=== PATIENT | female | born 1970 | race Caucasian/White ===

== ENCOUNTER 2020-09-14 10:59 | Emergency (ER) | payer MEDICARE, SELFPAY ==
--- NOTE | ~2020-09-14 | XR_ITS ---
EXAMINATION: XR knee RT min 4V EXAM DATE: 09/14/2020 11:40 INDICATION: Twisted RT knee last night. c/o pain. no h/o fx/sx . TECHNIQUE: Right knee frontal, crosstable lateral, orthogonal oblique projections for interpretation . [place] projection. There are no prior studies for comparison. FINDINGS: No evidence osteochondral defect or joint body in the right knee joint. There are no acut e fractures or dislocations identified. There is no subcutaneous gas. Scattered arterial sclerosis. No joint effusion. Mild patellar lateral subluxation. There are no radiopaque foreign bodies. The joint spaces are uniform. IMPRESSION: 1. XR knee RT min 4V exam without acute osseous findings. 2. Mild patellar lateral subluxation. Reviewed, dictated and finalized at location B.
[2020-09-14 11:05] VITALS: BP 109/48; PULSE 80; RESP 18; TEMP 36.2; O2SAT 100
--- NOTE | 2020-09-14 12:12 | ED.LOWEXIN ---
HPI - Extremity Injury (Lower) General Chief Complaint: Extremity Injury, Lower Stated Complaint: R Knee Injury Time Seen by Provider: 09/14/20 11:14 Source: patient Mode of arrival: ambulatory Limitations: no limitations History of Present Illness HPI Narrative: Patient is a 49-year-old female who presents with right knee pain. She reports twisting knee and driveway last p.m. She denies tenderness with palpation. Reports tenderness with ambulation. She denies all other injuries at this time. She denies taking [id number] medications for pain prior to arrival. Related Data Home Medications Medication Instructions Recorded Confirmed amlodipine 5 mg tablet 5 mg PO DAILY 03/28/19 07/22/20 apixaban 5 mg tablet 5 mg PO BID 03/28/19 07/22/20 aspirin 81 mg tablet,delayed 81 mg PO DAILY 03/28/19 07/22/20 release cinacalcet 60 mg tablet 60 mg PO DAILY 03/28/19 07/22/20 sevelamer carbonate 800 mg tablet 800 mg PO TID 03/28/19 07/22/20 folic acid 1 mg tablet 5 mg PO DAILY tablet 04/01/19 07/22/20 Allergies Allergy/AdvReac Type Severity Reaction Status Date / Time No Known Allergies Allergy Unknown Verified 09/14/20 11:52 Review of Systems Review of Systems: Narrative: CONSTITUTIONAL: Denies fever, chills, or sweats. EYES: Denies visual changes, redness, or discharge. ENT: Denies rhinorrhea, congestion, sore throat, or otalgia. CARDIOVASCULAR: Denies chest pain, palpitations, or edema. RESPIRATORY: Denies cough or dyspnea. GASTROINTESTINAL: Denies abdominal pain, nausea, vomiting, or diarrhea. GENITOURINARY: Denies dysuria or hematuria. SKIN: Denies rash or itching. MUSCULOSKELETAL: Reports right knee pain NEUROLOGIC: Denies headache, numbness, dizziness, or weakness. PSYCHIATRIC: Denies anxiety or depression. [facility] Family History Family History Father Family history of kidney disease Family history of diabetes mellitus in first degree relative Diabetes mellitus Hypertension Patient's father is , Onset Age: 52 Mother Patient's mother is in good health Social History Social History Alcohol intake: never Comments At the time of signature, I have reviewed and agree with nursing past medical, surgical, social, and family history unless otherwise noted. Please see nursing chart for further information. There is no relevant family history pertinent to the presenting complaint. Exam Narrative: Exam Narrative: GENERAL: Well-appearing, well-nourished, and in no acute distress. HEAD: Normocephalic, atraumatic. EYES: EOMI. No redness or drainage. Conjunctiva are normal. ENT: Mucous membranes pink and moist. CHEST: No respiratory distress. HEART: Regular rate and rhythm. EXTREMITIES: Normal range of motion. No erythema or edema noted to the right knee, distal sensation intact, good capillary refill SKIN: Warm, dry, no rash. NEURO: No focal deficits. Alert and oriented x3. Gait steady. PSYCH: Normal affect. No signs of depression or anxiety. Course Vital Signs Vital signs: Vital Signs Temperature 36.2 C L 09/14/20 11:05 Pulse Rate 80 09/14/20 11:05 Respiratory Rate 18 09/14/20 11:05 Blood Pressure 109/48 L 09/14/20 11:05 Pulse Oximetry 100 09/14/20 11:05 Temperature 36.2 C L 09/14/20 11:05 Pulse Rate 80 09/14/20 11:05 Respiratory Rate 18 09/14/20 11:05 Blood Pressure 109/48 L 09/14/20 11:05 Pulse Oximetry 100 09/14/20 11:05 MDM - Extremity Injury (Lower) MDM Narrative Medical decision making narrative: Patient's x-ray shows mild patellar lateral subluxation. Patient placed in a knee immobilizer. Discussed with patient the need to follow-up with orthopedics. Orthopedic referral given. Patient is stable for discharge to home with outpatient follow-up as discussed. Differential Diagnosis Differential diagnosis: Likely acute internal dera
== END 2020-09-14 13:52 | disposition home or self-care (01) ==
PROVIDERS: Emergency Provider Nurse Practitioner; PCP Internal Medicine
DX: S83.011A Lateral subluxation of right patella, initial encounter (principal); Z79.82 Long term (current) use of aspirin; Z79.01 Long term (current) use of anticoagulants; X50.9XXA Other and unspecified overexertion or strenuous movements or postures, initial encounter
CPT/HCPCS: 73564; 99283

== ENCOUNTER 2021-04-10 07:09 | Inpatient (IN) | payer MEDICARE, SELFPAY ==
[2021-04-10] VITALS (11 sets, daily range): BP systolic 115–134; BP diastolic 51–84; PULSE 94–102; RESP 14–20; TEMP 37.1–39.5; O2SAT 85–100; BMI 49.5
--- NOTE | ~2021-04-10 | US_ITS ---
EXAMINATION: US abdomen limited DATE: 04/11/2021 14:21 INDICATION: Abnormal liver function tests. TECHNIQUE: Multiple grayscale and Doppler ultrasound images of the abdomen were obtained. COMPARISON: CT abdomen and pelvis 08/25/2015 FINDINGS: The visualized portions of the head, body, and tail of the pancreas are normal. The liver i s normal without focal lesion. No liver surface nodularity. The is normal flow in main portal vein. T he gallbladder is normal in size and contains stones. No gallbladder wall thickening or sonographic M urphy sign. The common duct is normal and measures 2 mm. IMPRESSION: 1. Cholelithiasis. No evidence of acute cholecystitis. Reviewed, dictated and finalized at location A. ITE CH[employer] TERRA[employer] FINISHER
--- NOTE | ~2021-04-10 | XR_ITS ---
EXAMINATION: XR chest 2V DATE: 04/10/2021 08:00 INDICATION: Fever. TECHNIQUE: Frontal and lateral views of the chest were obtained. COMPARISON: Chest single view 04/20/2013, CT abdomen and pelvis 08/25/2015 FINDINGS: There are mild airspace opacities in the lower lung zones. No pleural effusion or pneumotho rax. The heart size is normal. There is a vascular stent overlying left shoulder. IMPRESSION: 1. Mild airspace opacities in the lower lung zones, consistent with atelectasis versus pneumonia. Reviewed, dictated and finalized at location A. OMIC CONSULTANT
--- NOTE | ~2021-04-10 | MR_ITS ---
EXAMINATION: MR brain/brain stem wo con DATE: 04/11/2021 14:58 INDICATION: Headache and fever. TECHNIQUE: Magnetic resonance imaging (MRI) of the brain and brainstem was performed without intraven ous contrast. Sequences included sagittal and axial T1-weighted FSE, axial diffusion-weighted FS EPI, axial T2*-weighted GRE, axial T2-weighted FLAIR Propeller, and axial T2-weighted Propeller. Apparent diffusion coefficient (ADC) maps were created. COMPARISON: None. FINDINGS: There is no intracranial hemorrhage, acute infarction, or abnormal intracranial mass lesion . The ventricles are normal in size. There is mild mucosal thickening in the paranasal sinuses. The o rbits are normal. There is a left mastoid effusion. IMPRESSION: 1. Normal brain. 2. Left mastoid effusion. Reviewed, dictated and finalized at location A. TAL FORENSICS EXAMINER
[2021-04-10] MEDS: ACETAMINOPHEN 500 MG TABLET 1000 MG PO (07:45)
[2021-04-10 07:59] LABS: Basophils Percent Auto 0.5 % (0.2-1.2); Eosinophils Absolute Auto 0.1 K/mm3 (0-0.3); Hematocrit 35.2 % (37.0-47.0); Hemoglobin 10.9 g/dL (12.0-15.0); Immature Granulocyte Absolute 0.08 K/mm3 (0.00-0.031); Immature Granulocyte Percent A 0.9 % (0-0.5); Lymphocytes Absolute Auto 2.02 K/mm3 (0.9-3.2); Lymphocytes Percent Auto 23.3 % (18.3-44.2); Mean Corpuscular Volume 87.3 fl (80-100); Mean Platelet Volume 11.2 fl (7.4-10.4); Monocytes Absolute Auto 0.9 K/mm3 (0.1-0.6); Monocytes Percent Auto 10.1 % (2.6-8.5); Neutrophils Absolute Auto 5.6 K/mm3 (1.3-6.7); Neutrophils Percent Auto 64.2 % (45.5-73.1); Platelet Count Result 298 k/mm3 (150-375); Red Blood Count 4.03 M/mm3 (4.2-5.4); Red Cell Distribution Width 16.2 % (11.5-14.5); White Blood Count 8.7 K/mm3 (4.5-10.0)
[2021-04-10 08:06] LABS: Alanine Aminotransferase 49 U/L (4-35); Albumin Level 3.7 g/dL (3.5-5.1); Alkaline Phosphatase 190 U/L (38-126); Anion Gap 13 mmol/L (8-16); Aspartate Amino Transferase 63 U/L (14-36); Bilirubin,Total 0.7 mg/dL (0.2-1.3); Blood Urea Nitrogen 46 mg/dL (7-17); Calcium 8.8 mg/dL (8.4-10.2); Carbon Dioxide 30 mmol/L (22-30); Chloride 85 mmol/L (98-107); Estimated CRCL calculation 8 ml/min; Estimated Glomerular Filt Rate 3; Glucose 117 mg/dL (65-110); Potassium 5.3 mmol/L (3.4-5.0); Sodium 128 mmol/L (137-145)
--- NOTE | 2021-04-10 08:25 | ED.FEVER ---
HPI - Fever General Chief Complaint: Fever Stated Complaint: WEAKNESS/FLU POSITIVE Time Seen by Provider: 04/10/21 07:35 Source: patient Mode of arrival: EMS Limitations: clinical condition History of Present Illness HPI Narrative: 50-year-old female She is a renal dialysis patient of Dr. mackey's Patient notes a fever for several days She has a slight cough, she has nausea, no diarrhea, and is anuric 2 days ago she says she tested positive for influenza when they checked her at dialysis She has been taking Tylenol but without much help Related Data Home Medications Medication Instructions Recorded Confirmed apixaban 5 mg tablet 5 mg PO BID 03/28/19 03/22/21 aspirin 81 mg tablet,delayed 81 mg PO DAILY 03/28/19 03/22/21 release cinacalcet 60 mg tablet 60 mg PO DAILY 03/28/19 03/22/21 sevelamer carbonate 800 mg tablet 800 mg PO TID 03/28/19 03/22/21 folic acid 1 mg tablet 5 mg PO DAILY tablet 04/01/19 03/22/21 midodrine 5 mg tablet 5 mg PO TID 03/22/21 03/22/21 Allergies Allergy/AdvReac Type Severity Reaction Status Date / Time No Known Allergies Allergy Unknown Verified 10/26/20 10:22 Review of Systems Review of Systems: All systems reviewed & are unremarkable except as noted in HPI and below Constitutional: Constitutional: Reports no additional constitutional complaints, Reports chills, Reports fatigue, Reports fever(s) and Denies headache(s) Eyes: Eyes: Reports no additional eye complaints and Denies change in vision ENT: Denies headache(s) and Denies sore throat Cardiovascular: Cardiovascular: Denies chest pain and Denies dyspnea Respiratory: Respiratory: Reports cough and Denies dyspnea Gastrointestinal: Gastrointestinal: Denies diarrhea, Reports nausea and Reports vomiting Genitourinary: Genitourinary: Denies urinary frequency, Denies nocturia and Denies dysuria Musculoskeletal: Musculoskeletal: Reports myalgias, Denies deformity, Denies arthralgias, Denies joint swelling and Denies numbness Integumentary/Breasts: Skin/Breast: Denies rash and Denies wounds Neurologic: Denies headache(s), Denies focal weakness and Denies numbness Psychiatric: Psychiatric: Reports no additional psychiatric complaints Endocrine: Endocrine: Reports no additional endocrine complaints Hematologic/Lymphatic: Hematologic/Lymphatic: Reports no additional hematologic/lymphatic complaints Allergic/Immunologic: Allergic/Immunologic: Reports no additional allergic/immunologic complaints 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 Morbid obesity PAD (peripheral artery disease) Polyneuropathy Renovascular hypertension Secondary hyperparathyroidism Type 1 diabetes mellitus with chronic kidney disease on chronic dialysis Vaccine counseling Surgical History Surgical History H/O kidney removal Family History Family History Father Family history of kidney disease Family history of diabetes mellitus in first degree relative Diabetes mellitus Hypertension Patient's father is , Onset Age: 52 Mother Patient's mother is in good health Social History Social History Alcohol intake: never Exam Const: General: cooperative, no acute distress and aler
[2021-04-10] MEDS: SODIUM CHLORIDE 0.9% IV 500 ML 999 ML IV CONT (08:45)
[2021-04-10 09:30] LABS: SARS-CoV-2 RNA PCR Negative
--- NOTE | 2021-04-10 09:32 | PM.IMHP ---
H&P: HPI History of Present Illness Date/Time: 04/10/21 09:32 Chief Complaint: Fever and weakness Narrative: This 50-year-old with IDDM and end-stage renal disease has been intermittently febrile for 1 week. Three days ago at dialysis she tested positive for influenza A. She was not treated. She continued with intermittent fevers and today felt extremely weak such that she could barely ambulate. Because of the weakness she presented the emergency department where chest x-ray showed bilateral lower lung infiltrates. She denied cough congestion sore throat chest pain dyspnea diarrhea or nausea or vomiting. Other than dialysis center she had no known exposures. She has had 3 COVID vaccinations and tested COVID negative today. Her most recent A1c was 5.6 and blood sugars with her insulin pump run in the 90s to low 100s. No recent hypoglycemia. Takes apixaban due to issues with her graft occluding. 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 1 diabetes mellitus Morbid obesity PAD (peripheral artery disease) Polyneuropathy Renovascular hypertension Secondary hyperparathyroidism Type 1 diabetes mellitus with chronic kidney disease on chronic dialysis Vaccine counseling Surgical History Surgical History H/O kidney removal Family History Family History Father Family history of kidney disease Family history of diabetes mellitus in first degree relative Diabetes mellitus Hypertension Patient's father is , Onset Age: 52 Mother Patient's mother is in good health Social History Social History (Updated 04/10/21 @ 17:39 by Nazario Ojeda MD) Social History: Disabled. Lives with . Smoking status: Never smoker Alcohol intake: never Substance use: never Living arrangements: with family Occupation/Education: retired Gender identity (if verbalized by the patient): Female Spiritual care concerns: No Meds Home Medications and Allergies Home Medications Medication Instructions Recorded Confirmed Type apixaban 5 mg tablet 5 mg PO BID 03/28/19 04/10/21 History aspirin 81 mg tablet,delayed 81 mg PO DAILY 03/28/19 04/10/21 History release cinacalcet 60 mg tablet 60 mg PO HS 03/28/19 04/10/21 History sevelamer carbonate 800 mg tablet 800 mg PO TID 03/28/19 04/10/21 History folic acid 1 mg tablet 5 mg PO DAILY tablet 04/01/19 04/10/21 History escitalopram oxalate 20 mg tablet 20 mg PO DAILY #90 tablet 07/22/20 04/10/21 Rx glucagon (human recombinant) 1 mg 1 mg SUB-Q Q20M PRN #1 ea 07/22/20 04/10/21 Rx solution for injection insulin aspart U-100 100 unit/mL 60 unit CONTINUOUS SUBCUTANEOUS 12/01/20 04/10/21 Rx subcutaneous solution INFUSION DAILY #100 ml MDD 65 units blood sugar diagnostic #400 each 03/21/21 04/10/21 Rx midodrine 5 mg tablet 5 mg PO TID 03/22/21 04/10/21 History atorvastatin 20 mg PO 1700 04/10/21 04/10/21 History omeprazole 40 mg PO HS 04/10/21 04/10/21 History Allergies Allergy/AdvReac Type Severity Reaction Status Date / Time No Known Allergies Allergy Unknown Verified 04/10/21 15:38 Vital Signs Vital Signs - 24 hr 04/10/21 07:10 04/10/21 07:30 04/10/21 08:03
[2021-04-10] MEDS: DOXYCYCLINE IV 100 MG in SODIUM CHLORIDE 0.9% IV 100 ML IVPB (10:08)
--- NOTE | 2021-04-10 14:42 | PC.NURSE ---
Patient care report called to JAN Fields. All questions answered at this time.
--- NOTE | 2021-04-10 15:00 | PC.NURSE ---
This patient, Isamar Cantrell, was admitted to 3 [facility] Surg Room 301-01. Patient/family oriented to hospital policies and general routines including ID bracelet, bed and alarms, visiting hours, pain management, procedures, bathroom and other care routines, personal items, smoking policy, room service/diet, and visiting hours. Information on how to activate the Rapid Response Team has been discussed. Patient/Family are encouraged to report perceived risks to care and to ask questions if they do not understand what they are told or what they should do.
[2021-04-10] MEDS: ACETAMINOPHEN 325 MG TABLET 650 MG PO ×2 (16:31→21:02)
[2021-04-10] MEDS: ATORVASTATIN 20 MG TABLET PO (18:42)
[2021-04-10] MEDS: DOXYCYCLINE HYCLATE 100 MG TABLET PO (21:01)
[2021-04-10] MEDS: CINACALCET 30 MG TABLET 60 MG PO (21:01)
[2021-04-10] MEDS: PANTOPRAZOLE 40 MG TABLET PO (21:01)
[2021-04-10] MEDS: APIXABAN 5 MG TABLET PO (21:02)
[2021-04-11] VITALS (20 sets, daily range): BP systolic 94–146; BP diastolic 49–75; PULSE 77–99; RESP 16–20; TEMP 36.4–39.1; O2SAT 90–97
--- NOTE | 2021-04-11 07:15 | PM.CNNEP ---
Assessment and Plan Assessment and plan (1) ESRD (end stage renal disease): Code(s): N18.6 - End stage renal disease Status: Acute Assessment and Plan: The patient has end-stage renal disease due to diabetes. She is due for dialysis today. Her potassium is slightly high so will do her on a 2 K bath. Will remove fluid as tolerated as well. (2) Fever: Code(s): R50.9 - Fever, unspecified Status: Acute Assessment and Plan: The patient has a fever. She has cough and shortness of breath. She has a headache. She has positive liver enzymes. She has a cat. I wonder if this could be toxoplasmosis. Will check titers there of. She could have the flu as well but she says she was swabbed been was negative. Will swab her here since I can not find any documentation there of. She has had a swab here which was negative for COVID. She says she has had swabs as an outpatient for this as well which were negative.. Chest x-ray shows atelectasis versus pneumonia. Blood cultures have been obtained. She is on ceftriaxone. (3) Pneumonia: Qualifiers: Laterality: unspecified laterality Lung location: unspecified part of lung Pneumonia type: due to other aerobic Gram-negative bacteria Qualified Code(s): J15.6 - Pneumonia due to other Gram-negative bacteria Code(s): J18.9 - Pneumonia, unspecified organism Status: Acute Assessment and Plan: The patient is on antibiotic (4) Hyponatremia: Code(s): E87.1 - Hypo-osmolality and hyponatremia Status: Acute Assessment and Plan: Sodium level is low due to water drinking between treatments. (5) Type 1 diabetes mellitus with chronic kidney disease on chronic dialysis: Code(s): E10.22 - Type 1 diabetes mellitus with diabetic chronic kidney disease; N18.6 - End stage renal disease; Z99.2 - Dependence on renal dialysis Status: Acute Assessment and Plan: She is on Accu-Cheks and sliding-scale insulin. (6) Dyslipidemia: Code(s): E78.5 - Hyperlipidemia, unspecified Status: Acute Assessment and Plan: She has hyperlipidemia History of Present Illness Reason for Consult Consult date: 04/11/21 Chief Complaint Chief complaint: Fever, Renal Failure History of Present Illness Narrative: Isamar is a very pleasant 50-year-old lady who has multiple medical problems including end-stage renal disease on dialysis Wednesdays and Fridays, diabetes, obesity, anxiety, GERD, history of renal cell cancer, hyperparathyroidism, chronic kidney disease related anemia, peripheral arterial disease, hyperlipidemia, depression, low vitamin-D. The patient says she has been sick for a week or 2. She has had fevers which have come and gone. She has a cough. Mildly short of breath. When she sits up after lying down she has to burp a lot and then becomes nauseated. She has no diarrhea or abdominal pain. She thought she had COVID but the swabs are negative. She thought she had the flu but these swabs were negative as well she said but I do not see evidence of that. I called the [facility] and they did not do swabs of either influenza or COVID. She told the [facility] that she had the swabs out at her primary care doctor who is Dr. Freda gallardo but I do not see evidence of that either. She came to the emergency room and was admitted. I saw our on my list today . She is due for dialysis today Review of Systems Constitutional: Constitutional: Reports no additional constitutional complaints Eyes: Eyes: Reports no additional eye complaints ENT: Reports system reviewed and no additional complaints, except as documented Cardiovascular: Cardiovascular: Reports no additional cardiovascular complaints Respiratory: Respiratory: Reports no additional respiratory complaints Gastrointestinal: Gastrointestinal: Reports no additional gastrointestinal complaints Genitourinary: Genitourinary: Reports no additional
[2021-04-11 07:20] LABS: Basophils Percent Auto 0.3 % (0.2-1.2); Eosinophils Absolute Auto 0.1 K/mm3 (0-0.3); Eosinophils Percent Auto 1.3 % (0-4.4); Hematocrit 35.5 % (37.0-47.0); Hemoglobin 10.8 g/dL (12.0-15.0); Immature Granulocyte Absolute 0.06 K/mm3 (0.00-0.031); Immature Granulocyte Percent A 0.6 % (0-0.5); Lymphocytes Absolute Auto 2.32 K/mm3 (0.9-3.2); Lymphocytes Percent Auto 23.5 % (18.3-44.2); Mean Corpuscular HGB Conc 30.4 g/dl (32-36); Mean Corpuscular Hemoglobin 26.5 pg (26-34); Mean Corpuscular Volume 87.2 fl (80-100); Mean Platelet Volume 11.1 fl (7.4-10.4); Monocytes Absolute Auto 1.3 K/mm3 (0.1-0.6); Monocytes Percent Auto 13.5 % (2.6-8.5); Neutrophils Percent Auto 60.8 % (45.5-73.1); Platelet Count Result 280 k/mm3 (150-375); Red Blood Count 4.07 M/mm3 (4.2-5.4); Red Cell Distribution Width 16.7 % (11.5-14.5); White Blood Count 9.9 K/mm3 (4.5-10.0)
[2021-04-11 07:44] LABS: Alanine Aminotransferase 37 U/L (4-35); Albumin Level 3.8 g/dL (3.5-5.1); Alkaline Phosphatase 179 U/L (38-126); Anion Gap 17 mmol/L (8-16); Aspartate Amino Transferase 36 U/L (14-36); Bilirubin,Total 0.7 mg/dL (0.2-1.3); Blood Urea Nitrogen 60 mg/dL (7-17); Calcium 8.7 mg/dL (8.4-10.2); Carbon Dioxide 25 mmol/L (22-30); Chloride 87 mmol/L (98-107); Estimated CRCL calculation 7 ml/min; Estimated Glomerular Filt Rate 3; Glucose 53 mg/dL (65-110); Phosphorus 5.3 mg/dL (2.5-4.5); Potassium 5.3 mmol/L (3.4-5.0); Sodium 129 mmol/L (137-145)
[2021-04-11] MEDS: ACETAMINOPHEN 325 MG TABLET 650 MG PO ×2 (08:13→20:56)
[2021-04-11 08:34] LABS: Glucose Point of Care 116 mg/dl (65-105)
[2021-04-11 08:57] LABS: Influenza Control Positive
--- NOTE | 2021-04-11 09:14 | PM.IMPN ---
Progress Note: A&P Assessment and Plan (1) Pneumonia: Qualifiers: Laterality: unspecified laterality Lung location: unspecified part of lung Pneumonia type: due to other aerobic Gram-negative bacteria Qualified Code(s): J15.6 - Pneumonia due to other Gram-negative bacteria Code(s): J18.9 - Pneumonia, unspecified organism Status: Acute Assessment and Plan: Community-acquired pneumonia following influenza Doxycycline and ceftriaxone nephrology checking toxoplasmosis titers as pt has cough, sob, fever, ARTEAGA, and elevated liver enzymes, and has a cat at home COVID negative BC NGTD (2) Hyponatremia: Code(s): E87.1 - Hypo-osmolality and hyponatremia Status: Acute Assessment and Plan: Nephrology consulted Likely combination of chronic kidney disease and volume depletion, less likely SIADH secondary to pneumonia (3) Type 1 diabetes mellitus with chronic kidney disease on chronic dialysis: Code(s): E10.22 - Type 1 diabetes mellitus with diabetic chronic kidney disease; N18.6 - End stage renal disease; Z99.2 - Dependence on renal dialysis Status: Acute Assessment and Plan: Excellent control with insulin pump Continue home regimen Nephrology to manage HD (4) Abnormal liver enzymes: Code(s): R74.8 - Abnormal levels of other serum enzymes Status: Acute Assessment and Plan: Given that she is a dialysis patient she has been screened for hepatitis-B and C May have underlying diabetic fatty liver May have a reactive component due to pneumonia check RUQ US Also being tested for toxoplasmosis Subjective Date/time seen: 04/11/21 09:14 Interval history: 50-year-old with IDDM and end-stage renal disease admitted for pneumonia, hyponatremia, and elevated liver enzymes. Pt states she still feels very weak. Has a cough and states when she starts coughing she also starts belching and sometimes spits up clear sputum. She denies nausea, vomiting, abdominal pain. Still having subjective fevers, chills, body aches. Heading down to dialysis shortly. Review of Systems Review of Systems: All systems reviewed & are unremarkable except as noted in HPI and below Exam Narrative: HEENT: PERRL, sclerae nonicteric, pharyngeal mucosa pink and intact NECK: No JVD, adenopathy, or thyromegaly CHEST: crackles at the bases bilaterally, no respiratory distress HEART: RRR, no murmur ABDOMEN: BS+, soft, nontender EXTREMITIES: trace edema BLE NEUROLOGIC: CN intact and symmetric to inspection. A/Ox3 MUSCULOSKELETAL: Tone and strength symmetric. PSYCH: Normal mood. Normal affect. Objective Data Vital Signs Vital Signs: Vital Signs - 24 hr 04/10/21 09:23 04/10/21 10:05 04/10/21 14:20 Temperature 100 F H 99.5 F Pulse Rate 95 Respiratory Rate 20 Blood Pressure 120/84 Pulse Oximetry 98 04/10/21 15:00 04/10/21 15:30 04/10/21 20:00 Temperature 98.8 F Pulse Rate 98 Respiratory Rate 20 Blood Pressure 115/66 Pulse Oximetry 95 97 95 04/10/21 22:00 04/11/21 06:00 Temperature 99.8 F H 98.3 F Pulse Rate 94 86 Respiratory Rate 20 18 Blood Pressure 125/52 L 123/63 Pulse Oximetry 92 97 Intake/Output Intake/Output: Intake & Output 04/08/21 04/09/21 04/10/21 04/11/21 23:59 23:59 23:59 23:59 Intake Total 1120 600 Balance 1120 600 Meds/Results Medications: Active Medications Generic Name Dose Route Start Last Admin Trade Name Freq PRN Reason Stop Dose Admin Acetaminophen 650 mg 04/10/21 08:43 04/11/21 08:13 Acetaminophen 325 Mg Tablet PO 650 mg Q4H PRN Administration Mild Pain (1-3) or Fever Apixaban 5 mg 04/10/21 21:00 04/10/21 21:02 Apixaban 5 Mg Tablet PO 5 mg Q12HR LUZ MARIA Administration Aspirin 81 mg 04/11/21 09:00 Aspirin 81 Mg Enteric Tablet PO DAILY LUZ MARIA Atorvastatin Calcium 20 mg 04/10/21 17:25 04/10/21 18:42 Atorvastatin
--- NOTE | 2021-04-11 09:23 | PC.NURSE ---
To dialysis per bed.
--- NOTE | 2021-04-11 11:29 | PM.EVENT ---
Event Note Event Note Event Note: patient on dialysis. Tolerating well. She was seen at 10:30 a.m.
--- NOTE | 2021-04-11 13:23 | PC.NURSE ---
Return from dialysis per bed @ 1310.
[2021-04-11] MEDS: APIXABAN 5 MG TABLET PO ×2 (13:27→20:45)
[2021-04-11] MEDS: DOXYCYCLINE HYCLATE 100 MG TABLET PO ×2 (13:27→20:46)
[2021-04-11] MEDS: ESCITALOPRAM OXALATE 10 MG TABLET 20 MG PO (13:27)
[2021-04-11] MEDS: ASPIRIN 81 MG ENTERIC TABLET PO (13:27)
[2021-04-11] MEDS: PANTOPRAZOLE 40 MG TABLET PO ×2 (13:28→20:45)
[2021-04-11] MEDS: MIDODRINE HCL 2.5 MG TABLET 5 MG PO ×2 (13:28→17:55)
[2021-04-11] MEDS: SEVELAMER CARBONATE 800 MG TABLET PO ×2 (13:28→17:55)
[2021-04-11] MEDS: FOLIC ACID 1 MG TABLET 5 MG PO (13:28)
[2021-04-11] MEDS: diazePAM (*CRX) 5 MG TABLET PO (13:51)
[2021-04-11] MEDS: ATORVASTATIN 20 MG TABLET PO (17:55)
[2021-04-11] MEDS: CINACALCET 30 MG TABLET 60 MG PO (20:45)
[2021-04-11 22:49] LABS: Glucose Point of Care 150 mg/dl (65-105)
[2021-04-12 05:55] VITALS: BP 118/62; PULSE 83; RESP 20; TEMP 36.6; O2SAT 96
[2021-04-12 07:03] LABS: Basophils Percent Auto 0.5 % (0.2-1.2); Eosinophils Absolute Auto 0.2 K/mm3 (0-0.3); Eosinophils Percent Auto 2.1 % (0-4.4); Hematocrit 32.6 % (37.0-47.0); Hemoglobin 9.9 g/dL (12.0-15.0); Immature Granulocyte Absolute 0.04 K/mm3 (0.00-0.031); Immature Granulocyte Percent A 0.5 % (0-0.5); Lymphocytes Absolute Auto 2.04 K/mm3 (0.9-3.2); Lymphocytes Percent Auto 25.2 % (18.3-44.2); Mean Corpuscular HGB Conc 30.4 g/dl (32-36); Mean Corpuscular Hemoglobin 27.2 pg (26-34); Mean Corpuscular Volume 89.6 fl (80-100); Mean Platelet Volume 11.4 fl (7.4-10.4); Monocytes Absolute Auto 1.1 K/mm3 (0.1-0.6); Monocytes Percent Auto 13.2 % (2.6-8.5); Neutrophils Absolute Auto 4.7 K/mm3 (1.3-6.7); Neutrophils Percent Auto 58.5 % (45.5-73.1); Platelet Count Result 296 k/mm3 (150-375); Red Blood Count 3.64 M/mm3 (4.2-5.4); Red Cell Distribution Width 16.4 % (11.5-14.5); White Blood Count 8.1 K/mm3 (4.5-10.0)
[2021-04-12 07:20] LABS: Alanine Aminotransferase 28 U/L (4-35); Albumin Level 3.4 g/dL (3.5-5.1); Alkaline Phosphatase 167 U/L (38-126); Anion Gap 9 mmol/L (8-16); Aspartate Amino Transferase 30 U/L (14-36); Bilirubin,Total 0.5 mg/dL (0.2-1.3); Blood Urea Nitrogen 40 mg/dL (7-17); Calcium 8.6 mg/dL (8.4-10.2); Carbon Dioxide 31 mmol/L (22-30); Chloride 92 mmol/L (98-107); Estimated CRCL calculation 10 ml/min; Estimated Glomerular Filt Rate 4; Glucose 41 mg/dL (65-110); Phosphorus 4.9 mg/dL (2.5-4.5); Potassium 4.3 mmol/L (3.4-5.0); Sodium 132 mmol/L (137-145)
--- NOTE | 2021-04-12 09:14 | PM.PNNEP ---
Progress Note: A&P Assessment and Plan (1) ESRD (end stage renal disease): Code(s): N18.6 - End stage renal disease Status: Acute Assessment and Plan: The patient has end-stage renal disease due to diabetes. She is due for dialysis tomorrow (2) Fever: Code(s): R50.9 - Fever, unspecified Status: Acute Assessment and Plan: febrile illness. Etiology unclear. Consider pneumonia Because of the chest x-ray. consider left mastoiditis because of the MRI. Toxo levels pending but I doubt if this is it. Blood cultures have been obtained. She is on ceftriaxone. (3) Pneumonia: Qualifiers: Laterality: unspecified laterality Lung location: unspecified part of lung Pneumonia type: due to other aerobic Gram-negative bacteria Qualified Code(s): J15.6 - Pneumonia due to other Gram-negative bacteria Code(s): J18.9 - Pneumonia, unspecified organism Status: Acute Assessment and Plan: The patient is on antibiotic (4) Hyponatremia: Code(s): E87.1 - Hypo-osmolality and hyponatremia Status: Acute Assessment and Plan: Sodium level is low due to water drinking between treatments. (5) Type 1 diabetes mellitus with chronic kidney disease on chronic dialysis: Code(s): E10.22 - Type 1 diabetes mellitus with diabetic chronic kidney disease; N18.6 - End stage renal disease; Z99.2 - Dependence on renal dialysis Status: Acute Assessment and Plan: She is on Accu-Cheks and sliding-scale insulin. (6) Dyslipidemia: Code(s): E78.5 - Hyperlipidemia, unspecified Status: Acute Assessment and Plan: She has hyperlipidemia Subjective Date/time seen: 04/12/21 09:14 Interval history: Isamar is feeling a little better today. Temperature is down. her headaches are a little bit better. She still has some nausea. Still has a little cough. She is still on oxygen Review of Systems Cardiovascular: Cardiovascular: Reports no additional cardiovascular complaints Respiratory: Respiratory: Reports no additional respiratory complaints Gastrointestinal: Gastrointestinal: Reports no additional gastrointestinal complaints Genitourinary: Genitourinary: Reports no additional female genitourinary complaints Exam Narrative: WDWN in NAD skin no rash head ncat. Mild mastoid tenderness on the left. lungs clear cor reg no rub abd BS+ nontender and soft ext no edema. Objective Data Vital Signs Vital Signs: Vital Signs - 24 hr 04/11/21 09:15 04/11/21 09:30 04/11/21 09:41 Temperature 39.1 C H Pulse Rate 99 98 Respiratory Rate 16 Blood Pressure 110/54 L 94/49 L Pulse Oximetry 90 04/11/21 10:00 04/11/21 10:15 04/11/21 10:30 Temperature Pulse Rate 92 86 91 Respiratory Rate Blood Pressure 117/62 127/58 L 116/60 Pulse Oximetry 04/11/21 10:45 04/11/21 11:00 04/11/21 11:15 Temperature Pulse Rate 87 82 81 Respiratory Rate Blood Pressure 125/64 112/54 L 113/55 L Pulse Oximetry 04/11/21 11:30 04/11/21 11:45 04/11/21 12:00 Temperature Pulse Rate 82 79 79 Respiratory Rate Blood Pressure 118/59 L 127/65 146/75 H Pulse Oximetry 04/11/21 12:15 04/11/21 12:30 04/11/21 12:43 Temperature Pulse Rate 79 77 77 Respiratory Rate Blood Pressure 142/70 H 143/70 H 134/74 Pulse Oximetry 04/11/21 12:53 04/11/21 13:52 04/11/21 20:00 Temperature 37.6 C H 36.7 C Pulse Rate 77 91 79 Respiratory Rate 16 16 20 Blood Pressure 134/74 108/58 L Pulse Oximetry 94 94 04/11/21 21:53 04/12/21 05:55 Temperature 36.4 C L 36.6 C Pulse Rate 79 83 Respiratory Rate 20 20 Blood Pressure 112/55 L 118/62 Pulse Oximetry 94 96 Intake/Output Intake/Output: Intake & Output 04/09/21 04/10/21 04/11/21 04/12/21 23:59 23:59 23:59 23:59 Intake Total 1120 870 750 Output Total 1999 Balance 1120 -1130 750 Meds/Results Medications: Active
[2021-04-12 09:15] VITALS: O2SAT 96
[2021-04-12] MEDS: DOXYCYCLINE HYCLATE 100 MG TABLET PO (09:15)
[2021-04-12] MEDS: APIXABAN 5 MG TABLET PO (09:15)
[2021-04-12] MEDS: ASPIRIN 81 MG ENTERIC TABLET PO (09:15)
[2021-04-12] MEDS: ESCITALOPRAM OXALATE 10 MG TABLET 20 MG PO (09:16)
[2021-04-12] MEDS: FOLIC ACID 1 MG TABLET 5 MG PO (09:16)
[2021-04-12] MEDS: PANTOPRAZOLE 40 MG TABLET PO (09:17)
[2021-04-12] MEDS: MIDODRINE HCL 2.5 MG TABLET 5 MG PO ×2 (09:17→12:47)
[2021-04-12] MEDS: SEVELAMER CARBONATE 800 MG TABLET PO ×2 (09:17→12:47)
[2021-04-12 12:52] LABS: Hemoglobin A1C 5.4 % (<5.7)
[2021-04-12 13:30] VITALS: O2SAT 93
[2021-04-12 13:35] VITALS: O2SAT 89
[2021-04-12 13:45] VITALS: O2SAT 94
[2021-04-12 14:00] VITALS: BP 116/50; PULSE 81; RESP 20; TEMP 36.8; O2SAT 94
--- NOTE | 2021-04-12 14:06 | PM.DS ---
DS: Admitting Diagnosis Discharge Date 04/12/21 Admitting Diagnosis SOB/Fatigue DS: Discharge Diagnosis Discharge Diagnosis (1) Pneumonia: Qualifiers: Laterality: unspecified laterality Lung location: unspecified part of lung Pneumonia type: due to other aerobic Gram-negative bacteria Qualified Code(s): J15.6 - Pneumonia due to other Gram-negative bacteria Code(s): J18.9 - Pneumonia, unspecified organism Status: Acute Assessment and Plan: This 50-year-old with IDDM and end-stage renal disease has been intermittently febrile for 1 week. Three days ago at dialysis she tested positive for influenza A. She was not treated. She continued with intermittent fevers and today felt extremely weak such that she could barely ambulate. Because of the weakness she presented the emergency department where chest x-ray showed bilateral lower lung infiltrates. Initial vitals showed stable blood pressure 133/51, tachycardic heart rate 102, afebrile 103.1?, and normal oxygen at 100% on room air. Initial labs showed normal white blood cell count, normocytic anemia with a hemoglobin of 10, hematocrit 35%. End-stage renal disease with a creatinine of 12, BUN 46. Hyperkalemia 5.3, hyponatremia at 128. Mild elevation of LFTs with an AST of 63, ALT of 49. Here she was negative for influenza a and B as well as COVID-19. She was treated for post influenza community-acquired pneumonia and started on IV Rocephin and p.o. doxycycline. She is feeling much better at this time and does not require any oxygen at rest or with exertion. She is eating and drinking without any issues and has been having more energy today. She feels comfortable being discharged home at this time to continue taking antibiotics for a few more days. Blood cultures are negative today. She is stable for discharge at this time. Return to ER warnings given. The patient understands agrees the plan all questions answered. (2) Hyponatremia: Code(s): E87.1 - Hypo-osmolality and hyponatremia Status: Acute Assessment and Plan: Nephrology consulted Sodium improved to 132. Likely combination of chronic kidney disease and volume depletion, less likely SIADH secondary to pneumonia (3) Type 1 diabetes mellitus with chronic kidney disease on chronic dialysis: Code(s): E10.22 - Type 1 diabetes mellitus with diabetic chronic kidney disease; N18.6 - End stage renal disease; Z99.2 - Dependence on renal dialysis Status: Acute Assessment and Plan: Excellent control with insulin pump She did have a few hypoglycemic episodes on 04/11/2021 a.m. and 04/12/2021 a.m.. I talked to clinical systems educator who recommended decreasing her insulin by 20% which wean 1:00 a.m. and 5:00 a.m. to trying prevent lows in the morning. The patient has made the adjustment to her insulin pump. I told her to continue monitoring closely and if she sees her morning glucose is becoming higher when she returns home to her normal diet habits then she can return back to baseline. Patient understands and agrees the plan all questions answered. (4) Abnormal liver enzymes: Code(s): R74.8 - Abnormal levels of other serum enzymes Status: Acute Assessment and Plan: Given that she is a dialysis patient she has been screened for hepatitis-B and C May have underlying diabetic fatty liver May have a reactive component due to pneumonia RUQ US showed cholelithiasis, no evidence of acute coli. Also being tested for toxoplasmosis - pending at this time will need to follow up with PCP with results. DS: Summary Hospital Course Hospital Course: See above Status at Discharge Cognitive/behavioral status at discharge: Stable, improved. Time Spent with Patient Time attestation: Total time spent providing and/or coordinating discharge services: 41 Time spent: Greater than 30 minutes Exam Narrative: General: 50-year-old woman s
--- NOTE | 2021-04-12 14:36 | PCOTNOTE ---
Spoke with pt. who is D/C ing from hospital. Pt. reports she has no additional needs for therapy services at this time. Canceling orders for evaluation.
--- NOTE | 2021-04-12 14:59 | HOMEO2EVAL ---
Evaluation was performed at [facility] Home Oxygen Evaluation RC: Home Oxygen (O2) Evaluation Start: 04/12/21 12:44 Freq: ONCE Status: Active Protocol: RPE Activity Type Activity Date Activity User E-Sign Co-Sign Detail Recorded Client Recorded Date Recorded By Document 04/12/21 13:30 ROMEO [id number] 04/12/21 14:59 ROMEO Document 04/12/21 13:35 ROMEO [id number] 04/12/21 14:59 ROMEO Document 04/12/21 13:45 ROMEO [id number] 04/12/21 14:59 ROMEO 04/12/21 04/12/21 04/12/21 13:30 13:35 13:45 Home O2 Evaluation Test Phase Resting Exercise Resting Oxygen Delivery Room Air Room Air Room Air Pulse Oximetry (90-100 %) 93 89 L 94 Home Oxygen Evaluation Comments No home o2 needed Treatment Charges O2 Evaluation - Inpatient
--- NOTE | 2021-04-12 14:59 | PCRCNOTE ---
Home O2 eval done, no home O2 needed, Charge nurse notified
[2021-04-13 11:52] LABS: Toxoplasma IgG Antibody <7.20 IU/mL (<7.20)
[2021-04-13 11:55] LABS: Toxoplasma IgM Antibody <8.00 AU/mL (<8.00)
== END 2021-04-12 16:45 | disposition home or self-care (01) | DRG 193 ==
LOC: ANHED 09:06 → ANH3MEDSUR 14:41
PROVIDERS: Internal Medicine Nephrology; Physician Assistant; Admitting Provider Internal Medicine; Emergency Provider Emergency Medicine; PCP Internal Medicine; Visit Provider Physician Assistant
DX: J18.9 Pneumonia, unspecified organism (principal); N18.6 End stage renal disease; E87.1 Hypo-osmolality and hyponatremia; Z68.42 Body mass index [BMI] 45.0-49.9, adult; R74.8 Abnormal levels of other serum enzymes; D63.1 Anemia in chronic kidney disease; E10.22 Type 1 diabetes mellitus with diabetic chronic kidney disease; E10.649 Type 1 diabetes mellitus with hypoglycemia without coma; E10.41 Type 1 diabetes mellitus with diabetic mononeuropathy; E10.51 Type 1 diabetes mellitus with diabetic peripheral angiopathy without gangrene; E66.01 Morbid (severe) obesity due to excess calories; E78.5 Hyperlipidemia, unspecified; E87.5 Hyperkalemia; F41.8 Other specified anxiety disorders; K21.9 Gastro-esophageal reflux disease without esophagitis; I15.0 Renovascular hypertension; Z90.5 Acquired absence of kidney; Z20.822 Contact with and (suspected) exposure to COVID-19; Z99.2 Dependence on renal dialysis; Z79.4 Long term (current) use of insulin; Z96.41 Presence of insulin pump (external) (internal); Z79.82 Long term (current) use of aspirin; Z85.528 Personal history of other malignant neoplasm of kidney
CPT/HCPCS: 36415; 70551; 71046; 76705; 80053; 80069; 80076; 82948; 83036; 83605; 84100; 85025; 86777; 87040; 87804; 94618; 96365; 96367; 99285; A9270; C9803; G0257; G0378; J0696; J1644; J7030; J7040; U0003; U0005

== ENCOUNTER 2021-09-22 20:56 | Emergency (ER) | payer MEDICARE, SELFPAY ==
[2021-09-22] VITALS (12 sets, daily range): BP systolic 81–92; BP diastolic 34–64; PULSE 100–111; RESP 18; TEMP 36.6–36.8; O2SAT 91–98
--- NOTE | 2021-09-22 21:31 | ECG_ITS ---
Measurements Intervals [place] Rate: 103 P: 51 VT: 160 QRS: 71 QRSD: 93 T: 23 QT: 326 QTc: 427 Interpretive Statements SINUS TACHYCARDIA LOW QRS VOLTAGE- DIFFUSE LEADS ANTEROSEPTAL INFARCT, AGE INDETERMINATE BASELINE ARTIFACT- II, AVR, V2 ABNORMAL ECG Electronically Signed On 09-23-2021 4:01:26 CDT by oTño Carter D.O.
[2021-09-22 21:56] LABS: Basophils Percent Auto 0.2 % (0.2-1.2); Eosinophils Absolute Auto 0.2 K/mm3 (0-0.3); Eosinophils Percent Auto 1.8 % (0-4.4); Hematocrit 45.2 % (37.0-47.0); Hemoglobin 13.6 g/dL (12.0-15.0); Immature Granulocyte Absolute 0.03 K/mm3 (0.00-0.031); Immature Granulocyte Percent A 0.3 % (0-0.5); Lymphocytes Absolute Auto 1.21 K/mm3 (0.9-3.2); Lymphocytes Percent Auto 11.7 % (18.3-44.2); Mean Corpuscular HGB Conc 30.1 g/dl (32-36); Mean Corpuscular Hemoglobin 26.5 pg (26-34); Mean Corpuscular Volume 88.1 fl (80-100); Mean Platelet Volume 10.2 fl (7.4-10.4); Monocytes Absolute Auto 0.9 K/mm3 (0.1-0.6); Monocytes Percent Auto 8.7 % (2.6-8.5); Neutrophils Percent Auto 77.3 % (45.5-73.1); Platelet Count Result 286 k/mm3 (150-375); Red Blood Count 5.13 M/mm3 (4.2-5.4); Red Cell Distribution Width 16.1 % (11.5-14.5); White Blood Count 10.3 K/mm3 (4.5-10.0)
[2021-09-22 22:07] LABS: Alanine Aminotransferase 7 U/L (6-35); Albumin Level 4.6 g/dL (3.5-5.1); Alkaline Phosphatase 107 U/L (38-126); Anion Gap 16 mmol/L (8-16); Aspartate Amino Transferase 15 U/L (14-36); Bilirubin,Total 0.9 mg/dL (0.2-1.3); Blood Urea Nitrogen 44 mg/dL (7-17); Carbon Dioxide 29 mmol/L (22-30); Chloride 88 mmol/L (98-107); Estimated CRCL calculation 7 ml/min; Estimated Glomerular Filt Rate 4; Glucose 146 mg/dL (65-110); Potassium 5.6 mmol/L (3.4-5.0); Sodium 133 mmol/L (137-145)
[2021-09-22] MEDS: ONDANSETRON INJ 4 MG/2 ML VIAL IV PUSH (22:15)
[2021-09-22 22:19] LABS: Lipase 31 U/L (23-300)
--- NOTE | 2021-09-22 23:39 | ED.NAVMDI ---
HPI - Nausea/Vomiting/Diarrhea General Chief complaint: Nausea/Vomiting/Diarrhea Stated complaint: vomiting Time Seen by Provider: 09/22/21 21:23 History of Present Illness HPI Narrative: Patient is a 50-year-old female who presents ER with nausea and vomiting and acid reflux. Patient reports she is feeling fatigued couple days ago while being evaluated to have a new AV fistula. They canceled her surgery because she was feeling under the weather. She reports she feels acid come up in the back of her throat which makes her nauseated. She did have some vomiting today. No diarrhea. No abdominal pain. No chest pain or chest pressure. No exertional dyspnea. She received some Zofran from her PCP today but she still felt nauseous. Her last episode of emesis was last night when she vomited 8 times. Today she has been able to eat some soup and keep down toast despite being nauseated. Related Data Home Medications Medication Instructions Recorded Confirmed apixaban 5 mg tablet (Eliquis) 5 mg PO BID 03/28/19 06/21/21 aspirin 81 mg tablet,delayed 81 mg PO DAILY 03/28/19 06/21/21 release (Adult Low Dose Aspirin) cinacalcet 60 mg tablet (Sensipar) 60 mg PO HS 03/28/19 06/21/21 sevelamer carbonate 800 mg tablet 800 mg PO TID 03/28/19 06/21/21 (Renvela) folic acid 1 mg tablet 5 mg PO DAILY 04/01/19 06/21/21 midodrine 5 mg tablet 5 mg PO TID 03/22/21 06/21/21 Allergies Allergy/AdvReac Type Severity Reaction Status Date / Time No Known Allergies Allergy Unknown Verified 06/21/21 08:49 Review of Systems Review of Systems: All systems reviewed & are unremarkable except as noted in HPI and below Constitutional: Constitutional: Denies chills and Denies fever(s) Cardiovascular: Cardiovascular: Denies chest pain, Denies rapid heart rate and Denies radiating jaw, neck or arm pain Respiratory: Respiratory: Denies cough and Denies dyspnea Gastrointestinal: Gastrointestinal: Denies abdominal pain, Reports heartburn, Reports nausea and Reports vomiting Musculoskeletal: Musculoskeletal: Denies back pain and Denies myalgias PMFSH Past Medical History Medical History Anxiety Anxiety and depression Chronic GERD COVID-19 vaccine series completed Dependence on renal dialysis Diabetic mononeuropathy associated with type 1 diabetes mellitus Dietary counseling Encounter for weight loss counseling ESRD (end stage renal disease) Exercise counseling Fistula of artery History of renal cell cancer Hyperlipidemia, unspecified Hypovitaminosis D Major depressive disorder, recurrent episode with anxious distress 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 Lives with . Alcohol intake: never Substance use: never Gender identity (if verbalized by the patient): Female Spiritual care concerns: No Exam Narrative: GENERAL: Chronically ill-appearing, obese, and in no acute distress. HEAD: Normocephalic, atraumatic. ENT: Mucous membranes moist. CHEST: Clear to auscultation. No respiratory distress. HEART: Regular rate and rhythm. Normal peripheral pulses. ABDOMEN: S
[2021-09-23] VITALS (8 sets, daily range): BP systolic 92–100; BP diastolic 35–59; PULSE 72; RESP 16; O2SAT 91–98
[2021-09-23] MEDS: BELLADONNA ALK/PHENOB ELIX 10 ML, MAG HYDROX/ALUMINUM HYD/SIMETH 30 ML, LIDOCAINE HCL 2... PO (00:03)
== END 2021-09-23 01:49 | disposition home or self-care (01) ==
PROVIDERS: Emergency Provider Emergency Medicine; PCP Internal Medicine
DX: K21.9 Gastro-esophageal reflux disease without esophagitis (principal); E10.22 Type 1 diabetes mellitus with diabetic chronic kidney disease; N18.6 End stage renal disease; E10.319 Type 1 diabetes mellitus with unspecified diabetic retinopathy without macular edema; E10.51 Type 1 diabetes mellitus with diabetic peripheral angiopathy without gangrene; I73.9 Peripheral vascular disease, unspecified; E10.42 Type 1 diabetes mellitus with diabetic polyneuropathy; I15.0 Renovascular hypertension; E55.9 Vitamin D deficiency, unspecified; E66.01 Morbid (severe) obesity due to excess calories; Z68.37 Body mass index [BMI] 37.0-37.9, adult; F41.9 Anxiety disorder, unspecified; F32.A Depression, unspecified; Z85.528 Personal history of other malignant neoplasm of kidney; Z90.5 Acquired absence of kidney; Z79.82 Long term (current) use of aspirin; Z79.01 Long term (current) use of anticoagulants; Z79.4 Long term (current) use of insulin; R00.0 Tachycardia, unspecified; R94.31 Abnormal electrocardiogram [ECG] [EKG]
CPT/HCPCS: 36415; 80053; 83690; 85025; 93005; 96374; 99284; A9270; J2405

== ENCOUNTER 2021-10-25 07:27 | Outpatient (CLI) | payer MEDICARE, SELFPAY ==
--- NOTE | ~2021-10-25 | XR_ITS ---
EXAMINATION: XR UGIAC w barium swallow DATE: 10/25/2021 08:16 INDICATION: Gastroesophageal reflux disease without esophagitis TECHNIQUE: The patient drank thick barium, gas-producing crystals, and thin barium. A total of thousa nd 196 fluoroscopic images of the esophagus, stomach, and proximal small bowel were obtained. Fluoros copy exposure time was 2.3 minutes. COMPARISON: None. FINDINGS: The esophagus is normal without mass or stricture. Esophageal motility is normal. There is a small sliding-type hiatal hernia with esophageal B ring at the gastroesophageal junction located ap proximately 5.6 cm above the level of the diaphragm. There was a single episode of gastroesophageal r eflux with moderate to large amount of contrast extending cephalad to at least level of the mid esoph wesley occurring while rolling from prone to supine position. No additional gastroesophageal reflux was able to be elicited with provocative maneuvers. The stomach and proximal small bowel are normal. IMPRESSION: 1. Small sliding-type hiatal hernia with gastroesophageal reflux. Reviewed, dictated and finalized at location A.
== END 2021-10-25 07:28 | disposition home or self-care (01) ==
LOC: ANHIMG 07:27
PROVIDERS: PCP Internal Medicine; Visit Provider Internal Medicine
DX: K21.9 Gastro-esophageal reflux disease without esophagitis (principal); K44.9 Diaphragmatic hernia without obstruction or gangrene
CPT/HCPCS: 74246

== ENCOUNTER → 2021-12-20 12:32 | Outpatient (CLI) | payer MEDICARE, SELFPAY ==
--- NOTE | ~2021-12-20 | XR_ITS ---
EXAM: XR hand LT min 3V DATE: 12/20/2021 12:46 HISTORY: S69.90XA - Unspecified injury of unspecified wrist, hand ... . COMPARISON: None available. FINDINGS: Normal mineralization. No fracture or dislocation. No lytic or blastic lesion. Scattered o steoarthritic changes, moderate at the triscaphe joint, mild in the fingers. Focal cortical erosions along the medial and lateral aspect of the third distal phalange, with adjacent medullary lucency. Qu estion of soft tissue swelling at the tip of the third digit. Vascular calcifications. IMPRESSION: Third distal phalange erosions, suspicious for osteomyelitis. Reviewed, dictated and finalized at location K.
== END ==
PROVIDERS: PCP Internal Medicine; Visit Provider Internal Medicine
DX: S69.90XA Unspecified injury of unspecified wrist, hand and finger(s), initial encounter (principal); M89.9 Disorder of bone, unspecified
CPT/HCPCS: 73130

== ENCOUNTER → 2022-01-09 08:56 | Outpatient (CLI) | payer MEDICARE, SELFPAY ==
--- NOTE | ~2022-01-09 | XR_ITS ---
XR finger 3rd LT min 2V DATE: 01/09/2022 09:09 INDICATION: Distal third finger fracture 7 weeks ago TECHNIQUE: 4 views COMPARISON: None FINDINGS: There is soft tissue swelling of the distal third digit. There is a small air collection be neath the nail. There are 2 parallel thin sclerotic lines in the metaphyseal area of the distal phalanx which may rep resent sclerosis at the proximal and distal margins of the transverse metaphyseal nondisplaced fractu re. There is osteopenia and prominent thinning of the cortex of the proximal half of the distal phala nx which may be due to some bone resorption associated with recent fracture. Osteomyelitis is not exc luded. IMPRESSION: Probable virtually nondisplaced metaphyseal fracture of distal phalanx; continued radiogr aphic follow-up is recommended Reviewed, dictated and finalized at location A. IMPRESSION: Probable virtually nondisplaced metaphyseal fracture of distal phal anx; continued radiographic follow-up is recommended
== END ==
PROVIDERS: PCP Internal Medicine; Visit Provider Plastic Surgery
DX: S62.633G Displaced fracture of distal phalanx of left middle finger, subsequent encounter for fracture with delayed healing (principal)
CPT/HCPCS: 73140

== ENCOUNTER → 2022-01-30 09:05 | Outpatient (CLI) | payer MEDICARE, SELFPAY ==
--- NOTE | ~2022-01-30 | XR_ITS ---
EXAM: XR finger 3rd LT min 2V DATE: 01/30/2022 09:18 HISTORY: 8 week f/u fx distal 3rd finger . COMPARISON: 01/09/2022 and 12/20/2021. FINDINGS: Mild osteopenia, with aggressive, permeative appearing decreased mineralization in the thi rd digit. No fracture or dislocation. No lytic or blastic lesion. Joint spaces and physes are maintai nelida. Slightly increased erosive change in the third distal phalange. Irregular lucency under the nail may represent changes from cosmetic nail overlays, nailbed abnormality is not excluded. IMPRESSION: Radiographic findings concerning for osteomyelitis of the third distal phalange, with dis use osteopenia in the third digit. MR of the fingers may be helpful for problem solving/further evalu ation. Reviewed, dictated and finalized at [facility] K. IC SERVICE OFFICER IMPRESSION: Radiographic findings concerning for osteomyelitis of the third dis edna phalange, with disuse osteopenia in the third digit. MR of the fingers may be helpful for problem solving/further evaluation.
== END ==
PROVIDERS: PCP Internal Medicine; Visit Provider Plastic Surgery
DX: S62.633D Displaced fracture of distal phalanx of left middle finger, subsequent encounter for fracture with routine healing (principal); X58.XXXD Exposure to other specified factors, subsequent encounter
CPT/HCPCS: 73140

== ENCOUNTER → 2022-02-27 08:59 | Outpatient (CLI) | payer MEDICARE, SELFPAY ==
--- NOTE | ~2022-02-27 | XR_ITS ---
Left third digit Technique: PA, oblique, and lateral views were obtained. Clinical History: Fracture COMPARISON: 01/30/2022 Findings: Transverse fracture of the third distal phalanx again present. There is probable progressiv e disuse osteopenia in the third digit. Joint spaces are preserved. Soft tissues are unremarkable. Impression: Transverse fracture third distal phalanx is similar to prior exam. 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 Reviewed, dictated and finalized at location [] X CONSULTANT Impression: Transverse fracture third distal phalanx is similar to prior exam. 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
== END ==
PROVIDERS: PCP Internal Medicine; Visit Provider Plastic Surgery
DX: S62.633G Displaced fracture of distal phalanx of left middle finger, subsequent encounter for fracture with delayed healing (principal); X58.XXXD Exposure to other specified factors, subsequent encounter
CPT/HCPCS: 73140

== ENCOUNTER 2022-03-30 01:57 | Day surgery (SDC) | payer MEDICARE, SELFPAY ==
[2022-03-27 15:02] VITALS: BMI 42.8
--- NOTE | 2022-03-27 15:15 | PC.NURSE ---
Report to the Outpatient Waiting Room, entrance under the green pavilion located off [facility], at time 1200 on date 03/30/22. Planned Procedure Time: 1300. Time changes happen often and if your time is changed the preop area will call you the afternoon before. - You and your visitor will be asked to self-screen and do not enter if you have any COVID symptoms. - Only one visitor is requested with a max of two and NO children visitors are allowed at this time. - The patient visitor may be requested to leave or wait in car when not with patient due to distancing restrictions. - A mask is optional within the hospital. Patients may have LIGHT MEAL Take the following medications with a SIP of water the morning of surgery: PRESCRIBED Medications to discontinue per physician: N/A Date to take last dose: N/A Please no make-up, nail italian, hairspray, perfume, deodorant, or body powder the day of surgery. No jewelry (including any body piercings) or valuables the day of surgery, leave them at home. Please take a shower or bath the night before, or the morning of, surgery with an antibacterial soap. Wear comfortable, loose fitting clothing. - Jewelry must be removed prior to entering the operating room. Rings and piercings that are not removed may be cut off. - The hospital will not accept responsibility for valuables. - Please leave all valuables, including medications, at home the day of surgery. YOU MAY DRIVE YOURSELF TO AND FROM THE HOSPITAL. Follow any additional instructions given to you from your surgeon. If you or anyone in your household have experienced Covid symptoms in the past week, please notify your surgeon or the nurse liaison at the phone number below for possible testing. Telephone instructions given to PT - JENS LEES and asked if any additional questions and then verbalized understanding. Patient advised to call surgeon office or pre surgery nurse liaison [phone] if any additional questions.
[2022-03-30] VITALS (8 sets, daily range): BP systolic 81–112; BP diastolic 49–60; PULSE 72–81; RESP 16–20; TEMP 36.3; O2SAT 94–97
--- NOTE | 2022-03-30 07:26 | WPDHPUPDATE1 ---
History and Physical Update Update Date/Time: 03/30/22 07:26 History and Physical has been reviewed, including an updated exam of the patient. There are NO changes in the patient's condition. Risks, benefits, and alternatives have been discussed and questions answered. Patient agrees to proceed with procedure.
[2022-03-30] MEDS: BUPIVACAINE HCL 0.25% PF 30 ML VIAL 5 ML INFILTRATE (10:02)
--- NOTE | 2022-03-30 11:18 | P.OP_ITS ---
Procedure Note - Detailed Date of Procedure 03/30/22 Pre-op Diagnosis Nonhealing wound of left middle distal phalanx Post-op Diagnosis Same Procedure Performed Disarticulation amputation of the left middle finger distal phalanx with local flap closure Surgeon Jeffery Ty MD Machine Pie Maker Rebeca the left middle finger was marked appropriately with the patient's c Anesthesia Local Indications Gangrene Description of Procedure The left middle finger was marked with the patient's consent in the holding area. She was taken to the operating room where she was placed supine on the operating table. A time-out was held and confirmed. The hand was placed on the hand table and was prepped and draped in usual fashion. Local anesthetic with 2% lidocaine with epinephrine and 0.25% plain Marcaine was administered as an intrathecal block. Additional application of that issue had to be applied until anesthesia was obtained. The blue tourniquet was roll on the patient's finger to the base. The joint space was confirmed and a transverse incision made at that level to disarticulate the distal phalanx. A volar flap was designed off the pad with the intention preserving the digital nerves. The specimen was sent to pathology. The wound site was irrigated. The flap was tailored and inset with 5-0 interrupted nylon sutures. The patient was asked to flex and extend and did extremely well. The flap was noted to perfuse well. The usual soft bandage was applied. She was discharged from the operating room stable condition. She has antibiotics at home which she will continue.. She has a few oxycodone left at home and we will send the prescription for 6 to her pharmacy Estimated Blood Loss 2 Drains No Packing No Pathology Yes Complications No immediate complications Condition Stable Disposition Same day
== END 2022-03-30 11:34 | disposition home or self-care (01) ==
PROVIDERS: Visit Provider Plastic Surgery
PROC: (CPT 26910; principal; 2022-03-30 10:30)
DX: L03.012 Cellulitis of left finger (principal); S61.20 Unspecified open wound of other finger without damage to nail; W23 Caught, crushed, jammed or pinched in or between objects; E11.22 Type 2 diabetes mellitus with diabetic chronic kidney disease; N18.6 End stage renal disease; F41.9 Anxiety disorder, unspecified; Z90.5 Acquired absence of kidney; Z99.2 Dependence on renal dialysis; Z79.82 Long term (current) use of aspirin; Z79.01 Long term (current) use of anticoagulants; Z79.4 Long term (current) use of insulin; Z85.528 Personal history of other malignant neoplasm of kidney
CPT/HCPCS: 26952; 88305; A9270

== ENCOUNTER 2022-10-01 20:43 | Emergency (ER) | payer MEDICARE, SELFPAY ==
--- NOTE | ~2022-10-01 | XR_ITS ---
XR tibia fibula LT 2V 10/01/2022 21:57 Indication: Leg injury. Procedure: 2 views left tibia/fibula Comparison: 07/31/2022 Findings: There is an osteochondral defect involving the lateral femoral condyle. There is osteoarthr itis of the left knee. Osteopenia. There is atherosclerosis. No acute fracture or traumatic malalignm ent is seen. Small joint effusion. There is polyarticular osteoarthritis of the left midfoot, partial ly visualized. Impression: 1: No acute fracture. 2: Osteochondral defect lateral femoral condyle. Reviewed, dictated and finalized at location A. Impression: 1: No acute fracture. 2: Osteochondral defect lateral femoral condyle.
[2022-10-01 20:52] VITALS: PULSE 96; RESP 16; TEMP 36.8; O2SAT 95
--- NOTE | 2022-10-01 20:52 | PC.NURSE ---
pt refused bp. states she has working fistulas in each arm for dialysis so she doesn't get bp taken in her arms.
[2022-10-01] MEDS: ACETAMINOPHEN 500 MG TABLET 1000 MG PO (21:49)
--- NOTE | 2022-10-01 21:49 | ED.LOWEXIN ---
HPI - Extremity Injury (Lower) General Chief Complaint: Extremity Injury, Lower Stated Complaint: leg leg swelling Time Seen by Provider: 10/01/22 21:09 History of Present Illness HPI Narrative: This is a 51-year-old female, with past history of stage renal disease on dialysis, on Eliquis, who presents to the emergency department complaining of swelling of the left lower leg after scraping it. The patient states she was exiting a pool, when she scraped the anterior aspect of the left foreleg approximately 3 hours ago. She states she has had progressive swelling and bruising in the same area. She complains of 7/10 dull pain but denies weakness/numbness or cyanosis of the foot. Related Data Home Medications Medication Instructions Recorded Confirmed apixaban 5 mg tablet (Eliquis) 5 mg PO BID 03/28/19 07/31/22 aspirin 81 mg tablet,delayed 81 mg PO DAILY 03/28/19 07/31/22 release (Adult Low Dose Aspirin) cinacalcet 60 mg tablet (Sensipar) 60 mg PO HS 03/28/19 07/31/22 folic acid 1 mg tablet 5 mg PO DAILY 04/01/19 07/31/22 midodrine 5 mg tablet 5 mg PO TID 03/22/21 07/31/22 Allergies Allergy/AdvReac Type Severity Reaction Status Date / Time No Known Allergies Allergy Unknown Verified 10/01/22 20:44 Review of Systems Review of Systems: CONSTITUTIONAL: Denies fever, chills, or sweats. CARDIOVASCULAR: Denies chest pain, palpitations, or edema. RESPIRATORY: Denies cough or dyspnea. GASTROINTESTINAL: Denies abdominal pain, nausea, vomiting, or diarrhea. GENITOURINARY: Denies dysuria or hematuria. SKIN: Denies rash or itching. MUSCULOSKELETAL: Left foreleg swelling denies back pain, joint pain, or myalgia. NEUROLOGIC: Denies headache, numbness, dizziness, or weakness. PSYCHIATRIC: Denies anxiety or depression. 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 1 diabetes mellitus Morbid obesity PAD (peripheral artery disease) Polyneuropathy Renovascular hypertension Secondary hyperparathyroidism Type 1 diabetes mellitus with chronic kidney disease on chronic dialysis Vaccine counseling Surgical History Surgical History H/O kidney removal right side H/O: History of surgical amputation of finger of left hand middle finger Family History Family History Father Family history of kidney disease Family history of diabetes mellitus in first degree relative Diabetes mellitus Hypertension Patient's father is , Onset Age: 52 Mother Patient's mother is in good health Social History Social History Social History: Disabled. Lives with . Smoking status: Never smoker Alcohol intake: never Substance use: never Substance use type: does not use Lack of Transportation: No Lack of Food: Never True Current Housing: I Have Housing Concerned About Future Housing: No Difficulty Paying Gas/Electric Bills: No Difficulty Paying for Meds: No Currently Unemployed: YES Education: Bachelor's Degree Difficulty w/ Childcare or Family Care: No Living arrangements: with family Occupation/Education: retired Gender identity (if verbalized by the patient): Female Spiritual care concerns: No Exam Narrative: GENERAL: Well-developed, well-nou
[2022-10-01 23:34] VITALS: BP 133/38; PULSE 98; RESP 18; TEMP 36.6; O2SAT 96
== END 2022-10-01 23:38 | disposition home or self-care (01) ==
PROVIDERS: Emergency Provider Preventive Medicine Aerospace Medicine; PCP Family Medicine
DX: S80.12XA Contusion of left lower leg, initial encounter (principal); E10.22 Type 1 diabetes mellitus with diabetic chronic kidney disease; I12.0 Hypertensive chronic kidney disease with stage 5 chronic kidney disease or end stage renal disease; N18.6 End stage renal disease; E10.42 Type 1 diabetes mellitus with diabetic polyneuropathy; E10.3293 Type 1 diabetes mellitus with mild nonproliferative diabetic retinopathy without macular edema, bilateral; E10.51 Type 1 diabetes mellitus with diabetic peripheral angiopathy without gangrene; I73.9 Peripheral vascular disease, unspecified; N25.81 Secondary hyperparathyroidism of renal origin; E55.9 Vitamin D deficiency, unspecified; K21.9 Gastro-esophageal reflux disease without esophagitis; E66.01 Morbid (severe) obesity due to excess calories; Z99.2 Dependence on renal dialysis; Z85.528 Personal history of other malignant neoplasm of kidney; Z79.82 Long term (current) use of aspirin; Z79.01 Long term (current) use of anticoagulants; Z79.4 Long term (current) use of insulin; W22.042A Striking against wall of swimming pool causing other injury, initial encounter
CPT/HCPCS: 73590; 99283; A9270

== ENCOUNTER 2023-01-12 14:04 | Outpatient (CLI) | payer MEDICARE, SELFPAY ==
--- NOTE | ~2023-01-12 | CT_ITS ---
EXAMINATION: CT brain wo con DATE: 01/12/2023 14:30 INDICATION: Patient fell 3 weeks ago and struck left side of head. Weakness. Headache. Neck pain. TECHNIQUE: Computed tomography (CT) of the head was performed without intravenous contrast. The mA wa s adjusted according to patient size. Iterative reconstruction technique was employed. Exam dose: 68 1.00 mGy-cm total exam DLP. COMPARISON: 04/11/2021 MRI brain/brainstem FINDINGS: Prominent bilateral vertebral artery calcifications, basilar artery and prominent bilateral carotid siphon internal carotid artery calcifications. There is nonspecific diminished attenuation of the cerebral white matter, likely due to chronic small vessel ischemic changes. No intracranial mass lesion or hemorrhage or cerebrovascular accident, midline shift or mass effect i s detected. No subdural or epidural hematoma. 8.5 mm polypoid soft tissue opacity of the right maxillary antrum. Included paranasal sinuses and rig ht mastoid air cells are otherwise unremarkable. Prominent left mastoid effusions. No fracture or bone destruction of the cranial vault. IMPRESSION: No skull fracture or acute intracranial finding Cerebral atherosclerosis and chronic small vessel ischemic changes of cerebral white matter Left mastoid effusions and 8.5 mm polypoid opacity of right maxillary antrum Reviewed, dictated and finalized at Location A. Reviewed, dictated and finalized at location B.
--- NOTE | ~2023-01-12 | CT_ITS ---
EXAMINATION: CT cervical spine wo con DATE: 01/12/2023 14:30 INDICATION: Fall 3 weeks ago. Struck left side of head. Headache, neck pain. TECHNIQUE: Computed tomography (CT) of the cervical spine was performed without intravenous contrast. Automated exposure control and iterative reconstruction technique were employed. Exam dose: 475.45 mGy-cm total exam DLP. COMPARISON: None FINDINGS: Prominent left mastoid effusions are noted. The right mastoid air cells appear normal. Prominent bilateral vertebral artery and carotid siphon internal carotid artery calcifications. There is straightening of the cervical spine which may be due to positioning or muscle spasm. There i s mild dextroscoliosis. C1 and C2 are normally aligned and the odontoid process is intact. No fracture or dislocation or locked facet or prevertebral soft tissue swelling is detected. There is severe degenerative disease at C6-7 Degenerative changes noted at some apophyseal joints. There is uncovertebral joint spurring at the C6 -7 level bilaterally. IMPRESSION: Straightening of the cervical spine which may be due to muscle spasm Mild dextro scoliosis Severe degenerative disc disease and uncovertebral joint spurring at C6-7 Reviewed, dictated and finalized at Location A. Reviewed, dictated and finalized at location B. IMPRESSION: Straightening of the cervical spine which may be due to muscle spa sm Mild dextro scoliosis Severe degenerative disc disease and uncovertebral joint spurring at C6-7
== END 2023-01-12 14:05 | disposition home or self-care (01) ==
PROVIDERS: PCP Family Medicine; Visit Provider Nurse Practitioner Family
DX: M43.8X6 Other specified deforming dorsopathies, lumbar region (principal); M41.80 Other forms of scoliosis, site unspecified; M50.323 Other cervical disc degeneration at C6-C7 level; R51.9 Headache, unspecified; X58.XXXA Exposure to other specified factors, initial encounter
CPT/HCPCS: 70450; 72125

== ENCOUNTER 2023-01-21 05:33 | Inpatient (IN) | payer MEDICARE, SELFPAY ==
[2023-01-21] VITALS (47 sets, daily range): BP systolic 82–142; BP diastolic 0–109; PULSE 94–115; RESP 14–29; TEMP 36.6–38.8; O2SAT 90–100; BMI 42.7
--- NOTE | ~2023-01-21 | XR_ITS ---
EXAMINATION: XR fl guide central line w con DATE: 01/23/2023 10:04 INDICATION: Left internal jugular central venous catheter dysfunction. TECHNIQUE: I injected the left internal jugular central venous catheter with water-soluble contrast u nder fluoroscopy. 1075 images were obtained. Fluoroscopy exposure time was 1.2 minutes. COMPARISON: Chest single view 01/22/2023 FINDINGS: There is a left internal jugular central venous catheter with tip at the junction of the ax illary and subclavian veins. There is normal blood return from the catheter. Greater than expected fo rce is needed for catheter injection. IMPRESSION: 1. Left internal jugular central venous catheter with tip at the junction of the left axillary and murphy bclavian veins. Greater than expected force is needed for catheter injection, but the catheter otherw ise can be aspirated and injected normally. Reviewed, dictated and finalized at location A. CAMERA OPERATOR IMPRESSION: 1. Left internal jugular central venous catheter with tip at the junction of th e left axillary and subclavian veins. Greater than expected force is needed for catheter injection, but the catheter otherwise can be aspirated and injected n ormally.
--- NOTE | ~2023-01-21 | US_ITS ---
EXAMINATION: US pelvic complete w TV DATE: 01/21/2023 08:53 INDICATION: Left adnexal pain. TECHNIQUE: Multiple transabdominal and transvaginal sonographic images of the pelvis were obtained. COMPARISON: Ultrasound 01/21/2023, CT abdomen and pelvis 01/21/2023 FINDINGS: TRANSABDOMINAL ULTRASOUND: The uterus measures 9.0 x 4.3 x 4.1 cm. There is no free fluid in the pelvis. TRANSVAGINAL ULTRASOUND: The endometrial complex measures 3 mm in thickness. The right ovary is not visualized. The left ovary is not visualized. In the left adnexa, there is a 5.4 x 1.5 x 2.4 cm cyst with peripheral low level echoes. IMPRESSION: 1. 5.4 cm cyst in the left adnexa, likely a hemorrhagic cyst. Pelvis ultrasound is recommended in 6-1 2 weeks. 2. Ovaries not visualized. Reviewed, dictated and finalized at location E. NSTITCH HEMMER IMPRESSION: 1. 5.4 cm cyst in the left adnexa, likely a hemorrhagic cyst. Pelvis ultrasound is recommended in 6-12 weeks. 2. Ovaries not visualized.
--- NOTE | ~2023-01-21 | XR_ITS ---
EXAMINATION: XR chest 1V portable DATE: 01/21/2023 06:11 INDICATION: Shortness of breath. TECHNIQUE: A single frontal view of the chest was obtained. COMPARISON: Chest 2 views 04/10/2021 FINDINGS: There is an interstitial pattern in the lungs, consistent with mild pulmonary edema. No ple ural effusion or pneumothorax. The heart size is normal. A vascular stent overlies left shoulder. An electronic device overlies left chest. IMPRESSION: 1. Mild pulmonary edema. Reviewed, dictated and finalized at location E. STONE INSPECTOR REPAIRER IMPRESSION: 1. Mild pulmonary edema.
--- NOTE | ~2023-01-21 | XR_ITS ---
EXAM: XR hand RT min 3V DATE: 01/21/2023 17:09 HISTORY: NECROTIC FINGERS . COMPARISON: None available. FINDINGS: Normal mineralization. No fracture or dislocation. No lytic or blastic lesion. Joint space s are maintained. Erosions with cortical loss on the palmar surface of the right second, third, and f ourth distal phalanges and distal aspect of the right second and third middle phalanges. Significant soft tissue deformity in the second third digits. IMPRESSION: Findings suspicious for osteomyelitis involving the palmar surface of the right second through fourth distal phalanges and the distal aspect of the right second and third middle phalanges. Reviewed, dictated and finalized at location K. GRAPH OFFICE ROUTE AIDE IMPRESSION: Findings suspicious for osteomyelitis involving the palmar surface of the right second through fourth distal phalanges and the distal aspect of the right seco nd and third middle phalanges.
--- NOTE | ~2023-01-21 | US_ITS ---
EXAMINATION: US pelvic complete DATE: 01/21/2023 07:47 INDICATION: Left adnexal pain. TECHNIQUE: Multiple transabdominal sonographic images of the pelvis were obtained. The patient was un able to tolerate transvaginal imaging. COMPARISON: None. FINDINGS: The uterus measures 8.6 x 4.3 x 5.7 cm. There is no free fluid in the pelvis. The endometrial complex measures 6 mm in thickness. The ovaries are not visualized. IMPRESSION: 1. Ovaries not visualized. 2. Normal uterus. Reviewed, dictated and finalized at location E. CTOR TRANSITION
--- NOTE | ~2023-01-21 | XR_ITS ---
EXAMINATION: XR chest port-a-cath/central DATE: 01/22/2023 15:46 INDICATION: Central line placement. TECHNIQUE: A single frontal view of the chest was obtained. COMPARISON: Chest single view 01/21/2023 FINDINGS: There are interstitial and airspace opacities in all lung zones bilaterally. No pleural eff usion or pneumothorax. Cardiomegaly is noted. A left internal jugular central venous catheter is seen with tip at the junction of the left axillary vein and left subclavian vein. There is a vascular candie nt overlying left shoulder. IMPRESSION: 1. Central line tip at the junction of the left axillary vein and subclavian vein. 2. Worsened diffuse lung disease, likely moderate pulmonary edema. 3. Cardiomegaly. Reviewed, dictated and finalized at location A. HER FOREMAN IMPRESSION: 1. Central line tip at the junction of the left axillary vein and subclavian ve in. 2. Worsened diffuse lung disease, likely moderate pulmonary edema. 3. Cardiomegaly.
--- NOTE | ~2023-01-21 | CT_ITS ---
EXAMINATION: CT abdomen pelvis wo con DATE: 01/21/2023 06:24 INDICATION: Left flank pain. TECHNIQUE: Computed tomography (CT) of the abdomen and pelvis was performed without intravenous contr ast. Automated exposure control and iterative reconstruction technique were employed. The dose-length product was 1494.91 mGy-cm. COMPARISON: CT abdomen and pelvis 08/25/2015 FINDINGS: The visualized portions of the lung bases demonstrate mild atelectasis. No pleural effusion . The heart size is normal. There are coronary artery calcifications. No pericardial effusion. The li calvin, gallbladder, spleen, pancreas, and adrenal glands are normal. Right kidney is absent. There are cysts in left kidney measuring up to 3.7 cm. There are extensive vascular calcifications in left kidn ey. There are numerous stones in left kidney measuring up to 6 mm. Aortic atherosclerosis is noted. T here are no dilated loops of bowel. The appendix is not visualized. There are no pathologically enlar ged lymph nodes. There is no free intraperitoneal fluid. There is a 5.8 x 2.6 x 2.1 cm cyst in left a dnexa. 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 There is moderate osteoarthritis of the hips. Th ere is severe thoracic spondylosis and mild lumbar spondylosis. There is severe osteoarthritis of the sacroiliac joints. IMPRESSION: 1. 5.8 x 2.6 x 2.1 cm cyst in the left adnexa, likely benign. Pelvis ultrasound is recommended in one year. Reviewed, dictated and finalized at location E. [employer]
--- NOTE | ~2023-01-21 | MR_ITS ---
EXAMINATION: MR lumbar spine wo/w con DATE: 01/23/2023 10:53 INDICATION: Low back pain. Bacteremia. TECHNIQUE: Magnetic resonance imaging (MRI) of the lumbar spine was performed without and with 20 mL MultiHance intravenous contrast. Sequences included sagittal T2-weighted FSE, sagittal T2-weighted FS FSE, sagittal T1-weighted FSE, and axial T2-weighted FSE. COMPARISON: None FINDINGS: Bone alignment is normal. Vertebral body heights and intervertebral disc heights are normal . The distal spinal cord signal intensity is normal. The conus medullaris is at L1. The following dis c levels are specifically discussed: L1-L2: There is a left foraminal protrusion. There is mild bilateral facet joint osteoarthritis. Ther e is mild left neural foraminal stenosis. There is no central canal stenosis. L2-L3: The disc is bulging. There is moderate bilateral facet joint osteoarthritis. There is mild sara ateral neural foraminal stenosis. There is no central canal stenosis. L3-L4: The disc is mildly bulging. There is mild right and moderate left facet joint osteoarthritis. There is mild bilateral neural foraminal stenosis. There is no central canal stenosis. L4-L5: The disc is bulging. There is mild right and moderate left facet joint osteoarthritis. There i s mild bilateral neural foraminal stenosis. There is no central canal stenosis. L5-S1: The disc does not extend beyond the endplate margin. There is severe bilateral facet joint ost eoarthritis. There is no neural foraminal stenosis. There is no central canal stenosis. IMPRESSION: 1. Mild lumbar spondylosis. Reviewed, dictated and finalized at location A. E DRIVER IMPRESSION: 1. Mild lumbar spondylosis.
--- NOTE | 2023-01-21 05:38 | ECG_ITS ---
Measurements Intervals [place] Rate: 98 P: 60 WI: 178 QRS: 83 QRSD: 76 T: 30 QT: 323 QTc: 414 Interpretive Statements SINUS RHYTHM LOW QRS VOLTAGE- DIFFUSE LEADS ANTEROSEPTAL INFARCT, AGE INDETERMINATE BASELINE ARTIFACT- I, II, III, AVR, AVL, AVF, V1, V4-V6 ABNORMAL ECG COMPARED TO ECG 09/22/2021 22:42:46 SINUS RHYTHM NOW PRESENT Electronically Signed On 01-22-2023 13:47:58 SR. PAYROLL MANAGER by Toño Carter D.O.
--- NOTE | 2023-01-21 05:49 | ECG_ITS ---
Measurements Intervals [place] Rate: 99 P: 58 KS: 166 QRS: 90 QRSD: 86 T: 27 QT: 316 QTc: 406 Interpretive Statements SINUS RHYTHM LOW QRS VOLTAGE- DIFFUSE LEADS ANTEROSEPTAL INFARCT, AGE INDETERMINATE BASELINE ARTIFACT- I, III, AVL ABNORMAL ECG COMPARED TO ECG 01/21/2023 05:38:56 NO SIGNIFICANT CHANGES Electronically Signed On 01-22-2023 13:48:33 TIPPLE WORKER by Toño Carter D.O.
[2023-01-21] MEDS: MORPHINE SULFATE (*CRX) 4 MG/ML INJ IV PUSH (06:10)
[2023-01-21] MEDS: ONDANSETRON INJ 4 MG/2 ML VIAL IV PUSH (06:10)
--- NOTE | 2023-01-21 06:11 | ED.GENADULT ---
HPI - General Adult General Chief complaint: Back Pain/Injury <Gary Claros MD - Last Filed: 01/21/23 07:10> Stated complaint: LEFT LOW BACK PAIN & SOB <Gary Claros MD - Last Filed: 01/21/23 07:10> Time Seen by Provider: 01/21/23 05:56 <Gary Claros MD - Last Filed: 01/21/23 07:10> History of Present Illness HPI narrative: Patient is a 52-year-old female who presents the emergency department with chief complaint of flank pain. Patient reports that she has history of end-stage renal disease and is on dialysis Sunday the patient reports that she has had fistulas in bilateral arms but 1 has been removed and she has history of steal syndrome secondary to the fistula the patient was recently at [place] after she had a syncopal episode and is currently wearing an event monitor. The patient states that she started having pain in her left flank area yesterday reports that the pain is sharp and reports that it makes it hard for her to breathe because the pain is so intense the patient reports that she does not make urine anymore and reports that her left kidney is her only surviving kidney after she had renal cancer. <Gary Claros MD - Last Filed: 01/21/23 07:10> Related Data Home medications: Home Medications Medication Instructions Recorded Confirmed apixaban 5 mg tablet (Eliquis) 5 mg PO BID 03/28/19 01/12/23 aspirin 81 mg tablet,delayed 81 mg PO DAILY 03/28/19 01/12/23 release (Adult Low Dose Aspirin) cinacalcet 60 mg tablet (Sensipar) 60 mg PO HS 03/28/19 01/12/23 folic acid 1 mg tablet 5 mg PO DAILY 04/01/19 01/12/23 midodrine 5 mg tablet 5 mg PO TID 03/22/21 01/12/23 gabapentin 100 mg capsule 100 mg PO TID 01/12/23 01/12/23 paroxetine HCl 12.5 mg 25 mg PO QAM 01/12/23 01/12/23 tablet,extended release 24 hr <Gary Claros MD - Last Filed: 01/21/23 07:10> Allergies/adverse reactions: Allergies Allergy/AdvReac Type Severity Reaction Status Date / Time No Known Allergies Allergy Unknown Verified 01/21/23 05:47 <Gary Claros MD - Last Filed: 01/21/23 07:10> Review of Systems Review of Systems: A 10 system review of systems was completed on the patient and is negative except for what is stated in the HPI. Nursing and ancillary documentation was reviewed. <Gary Claros MD - Last Filed: 01/21/23 07:10> [facility] Past Medical History Medical History: Medical History Anxiety and depression Chronic GERD COVID-19 vaccine series completed Dependence on renal dialysis Diabetic mononeuropathy associated with type 1 diabetes mellitus Dietary counseling Encounter for weight loss counseling ESRD (end stage renal disease) Exercise counseling Fistula of artery History of renal cell cancer Hyperlipidemia, unspecified Hypovitaminosis D Major depressive disorder, recurrent episode with anxious distress Mild nonproliferative diabetic retinopathy of both eyes associated with type 1 diabetes mellitus Morbid obesity PAD (peripheral artery disease) Polyneuropathy Renovascular hypertension Secondary hyperparathyroidism Type 1 diabetes mellitus with chronic kidney disease on chronic dialysis Vaccine counseling <Gary Claros MD - Last Filed: 01/21/23 07:10> Surgical History Surgical History: Surgical History H/O kidney removal right side H/O: History of surgical amputation of finger of left hand middle finger <Gary Claros MD - Last Filed: 01/21/23 07:10> Family History Family History: Family History Father Family history of kidney disease Family history of diabetes mellitus in first degree relative Diabetes mellitus Hypertension Patient's fat
[2023-01-21 06:17] LABS: Basophils Absolute Auto 0.1 K/mm3 (0.0-0.1); Basophils Percent Auto 0.7 % (0.2-1.2); Eosinophils Percent Auto 0.2 % (0-4.4); Hematocrit 38.1 % (37.0-47.0); Hemoglobin 11.2 g/dL (12.0-15.0); Immature Granulocyte Absolute 0.07 K/mm3 (0.00-0.031); Immature Granulocyte Percent A 0.6 % (0-0.5); Lymphocytes Absolute Auto 0.72 K/mm3 (0.9-3.2); Lymphocytes Percent Auto 6.2 % (18.3-44.2); Mean Corpuscular HGB Conc 29.4 g/dl (32-36); Mean Corpuscular Hemoglobin 26.2 pg (26-34); Mean Corpuscular Volume 89.2 fl (80-100); Mean Platelet Volume 10.2 fl (7.4-10.4); Monocytes Absolute Auto 1.2 K/mm3 (0.1-0.6); Monocytes Percent Auto 10.2 % (2.6-8.5); Neutrophils Absolute Auto 9.5 K/mm3 (1.3-6.7); Neutrophils Percent Auto 82.1 % (45.5-73.1); Platelet Count Result 323 k/mm3 (150-375); Red Blood Count 4.27 M/mm3 (4.2-5.4); White Blood Count 11.6 K/mm3 (4.5-10.0)
--- NOTE | 2023-01-21 06:17 | PC.NURSE ---
Pt taken to CT via stretcher at this time. Patient has O2 at 2 L via NC.
[2023-01-21 06:30] LABS: Lactic Acid Reflex 1.3 mmol/L (0.7-2.0)
[2023-01-21 06:32] LABS: Alanine Aminotransferase 17 U/L (6-35); Albumin Level 3.3 g/dL (3.5-5.1); Alkaline Phosphatase 144 U/L (38-126); Anion Gap 12 mmol/L (8-16); Aspartate Amino Transferase 35 U/L (14-36); Bilirubin,Total 0.7 mg/dL (0.2-1.3); Blood Urea Nitrogen 33 mg/dL (7-17); Carbon Dioxide 26 mmol/L (22-30); Chloride 93 mmol/L (98-107); Estimated CRCL calculation 13 ml/min; Estimated Glomerular Filt Rate 6; Glucose 134 mg/dL (65-110); Lipase 51 U/L (23-300); Magnesium 1.6 mg/dL (1.6-2.3); Potassium 5.2 mmol/L (3.4-5.0); Sodium 131 mmol/L (137-145)
[2023-01-21 06:42] LABS: Troponin I 0.019 ng/mL (0.000-0.034)
[2023-01-21 06:46] LABS: Anisocytosis 2+ (NORMAL); Hypochromasia 1+ (NORMAL); Platelet Estimate Adequate (Adequate); Schistocytes None Seen (NORMAL); Stomatocytes 1+ (NORMAL)
[2023-01-21 06:48] LABS: Procalcitonin 4.2 ng/mL
[2023-01-21 06:56] LABS: INR 1.4; Prothrombin Time 17.3 Seconds (11.1-14.7)
[2023-01-21 06:57] LABS: Partial Thromboplastin Time 38.5 SECONDS (22.3-36.8)
[2023-01-21] MEDS: fentaNYL CITRATE INJ (*CRX) 100 MCG/2 ML VIAL 50 MCG IV PUSH (07:19)
[2023-01-21] MEDS: diazePAM INJ (*CRX) 10 MG/2 ML SYRINGE 5 MG IV PUSH (09:50)
--- NOTE | 2023-01-21 14:00 | ADMGEN ---
This patient, Isamar Cantrell, was admitted to 3 [facility] Surg Room 303-01. Patient/family oriented to hospital policies and general routines including ID bracelet, bed and alarms, visiting hours, pain management, procedures, bathroom and other care routines, personal items, smoking policy, room service/diet, and visiting hours. Information on how to activate the Rapid Response Team has been discussed. Patient/Family are encouraged to report perceived risks to care and to ask questions if they do not understand what they are told or what they should do.
[2023-01-21 14:56] LABS: Glucose Point of Care 46 mg/dl (65-105)
[2023-01-21] MEDS: GLUCOSE ORAL GEL 15 GM OF GLUCSE IN 37.5 GM TUBE PO ×2 (14:58→15:07)
--- NOTE | 2023-01-21 15:25 | PC.NURSE ---
Patient's disconnected insulin pump around 1520
[2023-01-21 15:27] LABS: Glucose Point of Care 50 mg/dl (65-105)
[2023-01-21 15:27] LABS: Glucose Point of Care 44 mg/dl (65-105)
[2023-01-21] MEDS: DEXTROSE 10% 1,000 ML 50 ML IV CONT (15:42)
[2023-01-21 16:05] LABS: Glucose Point of Care 57 mg/dl (65-105)
[2023-01-21 16:05] LABS: Glucose Point of Care 77 mg/dl (65-105)
--- NOTE | 2023-01-21 16:06 | PM.IMHP ---
H&P: HPI History of Present Illness Date/Time: 01/21/23 15:30 Chief Complaint: Left-sided pain. 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 The patient provides the following history. Her provides additional information, with the patient's permission. She gets a majority of her care at [facility] and was hospitalized there a couple of months ago for surgery and attempts to salvage right upper extremity graft with a vein graft site being taken from her right leg. Unfortunately this was unsuccessful in the graft was closed. According to the patient, following that surgery a tourniquet was left on her right arm for upwards of 8 hours and she sustained a wound in the right elbow crease and has dry gangrene of the right 2nd and 3rd fingers related to the same though likely some component of subclavian steal syndrome as well. She is followed by wound care and her has been doing dressing changes at home. Yesterday he noticed a small amount of malodorous drainage coming from the right 3rd finger but they have not noticed any redness or swelling. Sometime in the middle of the night she was wakened from sleep by a severe, sharp shooting pain in the left side radiating to the left low back and left lower quadrant. It seems to come and go in waves of intensity and is worse with movement, palpation, and deep inspiration. Oxycodone was of no help. She denies fever, chills, sweats, chest pain, pleuritic pain, shortness a breath, fall, nausea, vomiting, and diarrhea. She no longer urinates. In the ED: She was afebrile on arrival. There have been difficulties obtaining a reliable blood pressure on her upper extremities due to previous fistulas and grafts. Left lower leg seems to provide the most accurate blood pressures and they have been running in the low 100 systolic. Labs were significant for a WBC count of 11.6, hemoglobin 11.2, INR 1.4, sodium 131, potassium 5.2, BUN 33, creatinine 7.20, lactic 1.3, procalcitonin 4.2. Chest x-ray showed mild pulmonary edema. CT of the abdomen and pelvis showed a 5.8 x 2.6 x 2.1 cm cyst in the left adnexa, likely benign. Transvaginal ultrasound showed a 5.4 cm cyst left adnexa, likely hemorrhagic cyst. Despite IV and oral analgesics received in the ED, her pain has persisted and she was admitted in this setting. At the time my evaluation she continues to have pretty significant pain in the left lower quadrant. Oxycodone seems to help the most, dilaudid tends to wear off within 10 minutes or so. On exam she was noted to have dressings on the right 2nd and 3rd finger. These were removed and revealed necrotic changes and a small amount of malodorous drainage at the tip of the right 3rd finger. No erythema, edema, or induration were noted around the site but she has exquisite tenderness to palpation in this area. X-rays were ordered and there were findings suspicious for osteomyelitis. She has no known history of osteomyelitis and she is not currently on antibiotic for infection of the fingers. She has no known history of MRSA or Pseudomonas. Also of note, her glucose started to drop while I was in the room and got down to the upper 40s however she was asymptomatic with that. She was briefly started on a D10 drip at a low rate as her glucose was not coming up with oral intake or glucose packets. removed her insulin pump as he did not feel she would be able to manage it while in the hospital. Review of Systems Review of Systems: Twelve systems were reviewed. She has no fever, chills, or sweats. No cold or flu symptoms. No chest pain or pleuritic pain. She denies calf pain. No recent syncope or near-syncope in the last sev
--- NOTE | 2023-01-21 17:20 | PC.NURSE ---
Transferred to IMU, room 210, per hospital bed. Bedside report given to Miri IMU RN.
[2023-01-21 17:21] LABS: Lactic Acid Reflex 1.9 mmol/L (0.7-2.0)
[2023-01-21] MEDS: HYDROmorphone HCL INJ (*CRX) 1 MG/ML SYR IV PUSH (17:41)
[2023-01-21 18:04] LABS: Glucose Point of Care 216 mg/dl (65-105)
[2023-01-21] MEDS: INSULIN ASPART (*BKC) 100 UNITS/ML SUB-Q ×2 (18:31→21:44)
--- NOTE | 2023-01-21 18:57 | PC.NURSE ---
Patient arrived to floor via stretcher from ER at 1400. This RN noted to Mellisa, CAREER DEVELOPMENT FACILITATOR, to verify if patient's BP is stable prior to transferring. Patient arrived to floor. Unable to obtain BP via automatic cuff or manual cuff. Unable to verify pulses to BLE via palpation or doppler. Provider Courtney made aware. Patient's continuous glucose monitor noted glucose of 88 upon arrival. Dropped to 66 per daughter per continuous glucose monitor around 1450. Glucose verified of 46 at 1455. Courtney notified and is placing in hypoglycemia protocol orders. Glucose gel administered per floor RN. Glucose darnell to 50 at 1506. 2nd glucose gel administered. Glucose 44 at 1523. Courtney made aware and in route to assess patient. 1527 Courtney at bedside for assessment and new orders noted for D10 at 50 mL/hr. D10 initiated. Glucose noted 77 at 1552 and then 216 at 1755. Patient noted to have continued pain and unable to tolerate HOB elevated during assessment. Courtney aware. Orders received to transfer to IMU for continued frequent monitoring of glucose. Patient transferred via bed at 1705 with report to JAN Chery.
[2023-01-21] MEDS: oxyCODONE/ACETAMINOPHEN (*CRX) 10-325 MG TABLET 1 TAB PO (19:04)
[2023-01-21] MEDS: cefTRIAXone 2 GM/NS 100 ML 2 GM/100 ML BAG IVPB (20:49)
[2023-01-21] MEDS: ACETAMINOPHEN 325 MG TABLET 650 MG PO (20:52)
[2023-01-21 21:31] LABS: Glucose Point of Care 243 mg/dl (65-105)
[2023-01-21] MEDS: INSULIN GLARGINE (*BKC) 100 UNITS/ML 10 UNITS SUB-Q (21:42)
[2023-01-21] MEDS: CINACALCET 30 MG TABLET 60 MG PO (22:01)
[2023-01-21 22:37] LABS: Glucose Point of Care 256 mg/dl (65-105)
[2023-01-21] MEDS: HYDROmorphone HCL INJ (*CRX) 1 MG/ML SYR 0.5 MG IV PUSH (23:52)
[2023-01-22] VITALS (31 sets, daily range): BP systolic 84–210; BP diastolic 0–93; PULSE 86–132; RESP 18–22; TEMP 36.2–37.8; O2SAT 92–98; BMI 43.9
[2023-01-22 00:14] LABS: Glucose Point of Care 267 mg/dl (65-105)
[2023-01-22] MEDS: oxyCODONE/ACETAMINOPHEN (*CRX) 10-325 MG TABLET 1 TAB PO ×2 (01:20→05:44)
[2023-01-22] MEDS: INSULIN ASPART (*BKC) 100 UNITS/ML SUB-Q ×3 (01:30→20:30)
[2023-01-22] MEDS: ACETAMINOPHEN 325 MG TABLET 650 MG PO (03:29)
[2023-01-22] MEDS: ONDANSETRON INJ 4 MG/2 ML VIAL IV PUSH (06:25)
[2023-01-22 07:01] LABS: Hematocrit 40.8 % (37.0-47.0); Hemoglobin 11.6 g/dL (12.0-15.0); Mean Corpuscular HGB Conc 28.4 g/dl (32-36); Mean Corpuscular Volume 91.3 fl (80-100); Mean Platelet Volume 10.3 fl (7.4-10.4); Platelet Count Result 247 k/mm3 (150-375); Red Blood Count 4.47 M/mm3 (4.2-5.4); Red Cell Distribution Width 19.9 % (11.5-14.5); White Blood Count 14.2 K/mm3 (4.5-10.0)
[2023-01-22 07:06] LABS: Glucose Point of Care 176 mg/dl (65-105)
[2023-01-22 07:56] LABS: Vancomycin Random 20.7 ug/mL (10-20)
[2023-01-22] MEDS: PANTOPRAZOLE 40 MG TABLET PO ×2 (08:55→20:31)
[2023-01-22] MEDS: GABAPENTIN 100 MG CAPSULE PO (08:55)
[2023-01-22] MEDS: HYDROcodone/acetaminophen (*CRX) 10-325 MG TABLET 1 TAB PO ×3 (08:55→20:29)
[2023-01-22 09:12] LABS: Alanine Aminotransferase 17 U/L (6-35); Albumin Level 3.1 g/dL (3.5-5.1); Alkaline Phosphatase 147 U/L (38-126); Anion Gap 15 mmol/L (8-16); Aspartate Amino Transferase 34 U/L (14-36); Bilirubin,Total 0.6 mg/dL (0.2-1.3); Blood Urea Nitrogen 45 mg/dL (7-17); Calcium 8.2 mg/dL (8.4-10.2); Carbon Dioxide 22 mmol/L (22-30); Chloride 90 mmol/L (98-107); Estimated CRCL calculation 10 ml/min; Estimated Glomerular Filt Rate 5; Glucose 210 mg/dL (65-110); Magnesium 1.6 mg/dL (1.6-2.3); Phosphorus 5.4 mg/dL (2.5-4.5); Potassium 6.3 mmol/L (3.4-5.0); Sodium 127 mmol/L (137-145)
--- NOTE | 2023-01-22 10:43 | PM.IMPN ---
Progress Note: A&P Assessment and Plan (1) Septicemia: Code(s): A41.9 - Sepsis, unspecified organism Status: Acute Assessment and Plan: Patient presents with complaints of intractable back pain. Patient had been just discharged from [facility] 2 days prior to this admission. On presentation, she has evidence of sepsis with tachycardia, leukocytosis, fever and now positive blood cultures. Procalcitonin is 4.2. She has known dry gangrene involving to her fingers on her right hand. One has recently began to become purulent. She is now having intractable low back pain with positive blood cultures given concern for epidural abscess or diskitis. CT scan the abdomen/pelvis shows a 5.8 cm cyst in the left adnexa likely benign. She does have severe osteoarthritis of the sacroiliac joint noted which could be the etiology of her back pain although patient is symptoms began 2 days before this admission. Pelvic ultrasound also reveals the left adnexa and cyst likely hemorrhagic. This is probably unrelated to her back pain. Currently on Rocephin and vancomycin. Will proceed with MRI of the lumbar spine. Repeat blood cultures tomorrow. Will arrange for transfer to [facility] once she is able to have dialysis. (2) Intractable back pain: Code(s): M54.9 - Dorsalgia, unspecified Status: Acute Assessment and Plan: As above. Bedrest until MRI completed. (3) Electrolyte abnormality: Code(s): E87.8 - Other disorders of electrolyte and fluid balance, not elsewhere classified Status: Acute Assessment and Plan: Patient with hyperkalemia on admission. She was treated appropriately. Sodium was low 131. She is compliant with her dialysis that she receives on [facility]. Phosphorus was elevated but not uncommon for her. Potassium is higher today at 6.3. Concerned that her dialysis fistula may not be functioning. Lokelma ordered. Repeat bicarb and calcium. Discussed with Nephrology. (4) Osteomyelitis of finger of right hand: Code(s): M86.9 - Osteomyelitis, unspecified Status: Acute Assessment and Plan: As above. Wound care consult. Continue dressing changes. (5) Adnexal cyst: Code(s): N94.9 - Unspecified condition associated with female genital organs and menstrual cycle Status: Acute Assessment and Plan: Pelvic ultrasound showing 5.4 cm adnexal cyst probably hemorrhagic. Recommended 6-12 month follow-up ultrasound to ensure stability (6) End-stage renal disease on hemodialysis: Code(s): N18.6 - End stage renal disease; Z99.2 - Dependence on renal dialysis Status: Acute Assessment and Plan: Patient with end-stage renal disease. She receives dialysis Sunday. Nephrology has been consulted. Proceed with dialysis today. (7) Type 1 diabetes mellitus: Code(s): E10.9 - Type 1 diabetes mellitus without complications Status: Acute Assessment and Plan: The patient's blood glucose was reviewed on 01/22 Glucose poorly controlled. Continue AccuCheks covering with sliding scale. Hypoglycemia protocol available as needed. Continue current treatment plan for now. 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 Patient complains of left flank and low back pain. She was recently discharged from [facility] about 5 days ago. No CP or SOB. Was having falls prior to her hospitalization at [facility] but none over the past 5 days. She does not wear O2 at home. She has been having fevers and noted to have drainage from one of the gangrenous fingers. Back pain feels like stabbing pain. She does not make urine. No stool incontinence. She is in too much pain yobany
[2023-01-22 10:46] LABS: Hepatitis B Surface Antigen Negative (Negative)
[2023-01-22 11:10] LABS: Hepatitis B Surface Anti Res Positive
[2023-01-22] MEDS: SODIUM ZIRCONIUM CYCLOSILICATE 10 GM POWD.PACK PO (11:16)
[2023-01-22] MEDS: CALCIUM GLUCONATE 1,000 MG/10 ML VIAL 1000 MG IV PUSH (11:16)
[2023-01-22] MEDS: SODIUM BICARBONATE 8.4% 50 MEQ/50 ML SYRINGE IV PUSH (11:16)
[2023-01-22 11:17] LABS: Glucose Point of Care 262 mg/dl (65-105)
--- NOTE | 2023-01-22 12:43 | WPDCN ---
Assessment and Plan Assessment and plan (1) Adnexal cyst: Code(s): N94.9 - Unspecified condition associated with female genital organs and menstrual cycle Status: Acute Assessment and Plan: A: Left adnexal hemorrhagic cyst. The patient's acute pain seems not to be related to the left adnexa. P: Follow up imaging of the pelvis in 6-8 weeks would be prudent. Thank you for involving me in the care of this very interesting patient. HPI Data of Consult Date/Time: 01/22/23 12:43 Requesting Physician: Aubrey Duran MD Primary Care Provider: Thomas Diez MD Consult Narrative Reason for consult: Adnexal cyst Narrative: 52 y/o with a very complex medical history. Yesterday morning she had acute onset of back pain, wrapping around the left flank. 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 She has not had any vaginal bleeding in [address] showed a 5.6 cm left adnexal cyst. She could not tolerate transvaginal ultrasound exam. Transabdominal ultrasound of the pelvis fails to identify the adnexa. Uterus was normal-appearing with a 6 mm thick endometrial complex. 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 Family History Family History Father Family history of kidney disease Family history of diabetes mellitus in first degree relative Diabetes mellitus Hypertension Patient's father is , Onset Age: 52 Mother Patient's mother is in good health Social History Social History Social History: Surrogate medical decision maker: John Cantrell, spouse. Code status: Full code. Smoking status: Never smoker Alcohol intake: never Substance use: never Substance use type: does not use Lack of Transportation: No Lack of Food: Never True Current Housing: I Have Housing Concerned About Future Housing: No Difficulty Paying Gas/Electric Bills: No Difficulty Paying for Meds: No Currently Unemployed: No Education: Associate Degree Difficulty w/ Childcare or Family Care: No Living arrangements: with family Occupation/Education: retired Spiritual care concerns: No Meds Home Medications and Allergies Home Medications Medication Instructions Recorded Confirmed Type apixaban 5 mg tablet (Eliquis) 5 mg PO Q12H 03/28/19 01/21/23 History cinacalcet 60 mg tablet (Sensipar) 60 mg PO HS 03/28/19 01/21/23 History midodrine 5 mg tablet 10 mg PO TID 03/22/21 01/21/23 History blood sugar diagnostic #400 ea 01/12/22 01/21/23 Rx blood sugar diagnostic #400 ea 11/27/22 01/21/23 Rx blood-glucose sensor (Dexcom G6 #3 ea 12/26/22 01/21/23 Rx Sensor device) gabapentin 100 mg capsule 100 mg PO BID 01/12/23 01/21/23 History paroxetine HCl 12.5 mg 12.5 mg PO QAM 01/12/23 01/21/23 History tablet,extended release 24 hr atorvastatin 40 mg tablet 40 mg PO DAILY 01/21/23 01/21/23 History diclofenac sodium 1 % topical gel 2 g topical QID 01/21/23 01/21/23 History insulin aspart U-100 100 unit/mL 12 unit continuous subcutaneous 01/21/23
[2023-01-22 14:00] LABS: Glucose Point of Care 364 mg/dl (65-105)
[2023-01-22 14:07] LABS: Free T4 Free Thyroxine Reflex 1.18 ng/dL (0.78-2.19)
[2023-01-22 15:12] LABS: Total Triiodothyronine (T3) 0.56 NG/ML (0.97-1.69)
--- NOTE | 2023-01-22 15:19 | PC.NURSE ---
came to nurses station stating patient was confused. Vital signs stable, patient able to answer orientation questions except she didn't know where she was. Checked patients blood sugar, in the 300's. Called Dr. Russ, he came to bedside to evaluate patient.
--- NOTE | 2023-01-22 15:59 | PM.CNGS ---
Assessment and Plan Assessment and plan (1) Septicemia: Code(s): A41.9 - Sepsis, unspecified organism Status: Acute Assessment and Plan: cont mgmt per primary team, will need IV abx, pending transfer to [facility] (2) End-stage renal disease on hemodialysis: Code(s): N18.6 - End stage renal disease; Z99.2 - Dependence on renal dialysis Status: Acute Assessment and Plan: HD thru LUE AVF (3) Poor intravenous access: Code(s): Z78.9 - Other specified health status Status: Acute Assessment and Plan: will attempt TLC at bedside, pt will be difficult given medical condition, body habitus, multiple previous central lines in the past History of Present Illness Consult details Consult date: 01/22/23 Reason for consult: central line Requesting physician: Gary Russ MD Narrative: The patient is a 52-year-old female with multiple medical issues including end-stage renal disease requiring dialysis presenting with sepsis, intractable back pain. Of note, all history is obtained via chart and nursing as the patient is writhing around in pain and not answering questions. General surgery has been consulted for urgent access as she has no peripheral access this time. Review of Systems Review of Systems: ROS unobtainable: Yes unobtainable due to medical condition and unobtainable due to mental status PMFSH Past Medical History Medical History Anxiety and depression Chronic anticoagulation Chronic GERD Diabetic peripheral neuropathy End-stage renal disease on hemodialysis History of renal cell cancer Hyperlipidemia, unspecified Hypovitaminosis D Major depressive disorder, recurrent episode with anxious distress 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 Family History Family History Father Family history of kidney disease Family history of diabetes mellitus in first degree relative Diabetes mellitus Hypertension Patient's father is , Onset Age: 52 Mother Patient's mother is in good health Social History Social History Social History: Surrogate medical decision maker: John Cantrell, spouse. Code status: Full code. Smoking status: Never smoker Alcohol intake: never Substance use: never Substance use type: does not use Lack of Transportation: No Lack of Food: Never True Current Housing: I Have Housing Concerned About Future Housing: No Difficulty Paying Gas/Electric Bills: No Difficulty Paying for Meds: No Currently Unemployed: No Education: Associate Degree Difficulty w/ Childcare or Family Care: No Living arrangements: with family Occupation/Education: retired Spiritual care concerns: No Meds Home Medications and Allergies Home Medications Medication Instructions Recorded Confirmed Type apixaban 5 mg tablet (Eliquis) 5 mg PO Q12H 03/28/19 01/21/23 History cinacalcet 60 mg tablet (Sensipar) 60 mg PO HS 03/28/19 01/21/23 History midodrine 5 mg tablet 10 mg PO TID 03/22/21 01/21/23 History blood sugar diagnostic #400 ea 01/12/22 01/21/23 Rx blood sugar diagnostic #400 ea 11/27/22 01/21/23 Rx blood-glucose sensor (Dexcom G6 #3 ea 12/26/22 01/21/23 Rx Sensor device) gabapentin 100 mg capsule 100 mg PO BID 01/12/23 01/21/23 History paroxetine HCl 12.5 mg 12.5 mg PO QAM 01/12/23 01/21/23 History tablet,extended release 24 hr atorvastat
--- NOTE | 2023-01-22 16:11 | P.OP_ITS ---
Procedure Note - Detailed Date of Procedure 01/22/23 Pre-op Diagnosis Sepsis, poor venous access Post-op Diagnosis Same Procedure Performed placement of left internal jugular triple-lumen catheter Surgeon Umm Murillo MD Anesthesia Local Indications 52-year-old female presenting with sepsis and multiple medical issues needing access. Findings No right internal jugular vein visualization on ultrasound, left internal jugular vein visualized Description of Procedure The patient was placed in the supine position. A time-out was done to verify the patient's identity, as well as the procedure being performed. The area of the left neck was prepped and draped in the normal sterile fashion. Using the ultrasound, was able to visualize the left internal jugular vein. I then localized the area around this vein. I then used an 18 gauge needle to gain access into the left internal jugular vein. I was then able to pass a guidewire into the vein, confirmed via the ultrasound. I then enlarged the incision around the guidewire. I was then able to dilate the vein with the dilator. I then under sterile Seldinger technique placed the 16 cm triple-lumen catheter into the left internal jugular vein. I then removed the guidewire just leaving the catheter in the vein. I was able to be drawn flush from 2/3 ports without issue. All 3 ports flushed without issue. A chest x-ray will be done at the [facility]. The patient tolerated the procedure well. Implants 16 cm triple-lumen catheter in left internal jugular vein Estimated Blood Loss 5 Urine Output 0 Complications No immediate complications Condition Critical Disposition Floor [facility] Billing Surgery - Charge Forward: Surgery Billing
[2023-01-22] MEDS: MIDODRINE HCL 10 MG TABLET PO (16:14)
[2023-01-22] MEDS: HEPARIN SODIUM 1,000 UNITS/ML VIAL 3000 UNITS IV PUSH (16:57)
[2023-01-22] MEDS: HEPARIN SODIUM 1,000 UNITS/ML VIAL 1000 UNITS IV PUSH ×2 (17:00→18:00)
--- NOTE | 2023-01-22 17:11 | PC.NURSE ---
1711-Spoke to Dr. Murillo about central line placement. pt unable to go to MRI for fleuro for radiologist to place central line in correct place. pt to dialysis, potassium of 6.3. Dr. Murillo states not to use central line unless it's an emergency
--- NOTE | 2023-01-22 17:25 | PM.CNNEP ---
Assessment and Plan Assessment and plan (1) ESRD (end stage renal disease): Code(s): N18.6 - End stage renal disease Status: Chronic Assessment and Plan: HD today continue M/W/F dialysis schedule while hospitalized follow electrolytes, volume status, and clearance (2) Hyperkalemia: Code(s): E87.5 - Hyperkalemia Status: Acute Assessment and Plan: as noted by AM labs s/p medical management earlier today dialysis should correct/stabilize (3) Sepsis: Code(s): A41.9 - Sepsis, unspecified organism Status: Acute Assessment and Plan: noted by fever, tachycardia, elevated WBC, and positive blood cultures presumed source are her right hand/fingers with gangrene however, with intractable low back pain, concerns is for possible diskitis or epidural abscess... will check MRI of lumbar spine follow repeat cultures on antibiotics (4) Intractable back pain: Code(s): M54.9 - Dorsalgia, unspecified Status: Acute Assessment and Plan: see #3 pain control follow-up on ordered imaging (5) Osteomyelitis of finger of right hand: Code(s): M86.9 - Osteomyelitis, unspecified Status: Chronic Assessment and Plan: local wound care X-rays noted on antibiotics (6) Type 1 diabetes mellitus: Code(s): E10.9 - Type 1 diabetes mellitus without complications Status: Chronic Assessment and Plan: normally on insulin pump at home suspect hyperglycemia may be related to acute infection follow accu-cheks glycemic control per hospitalists Discussed case with Dr. Russ Long extensive discussion (> 20 minutes) with the patient as well as her at bedside regarding her multitude of medical issues and problems at this time and the hope that interventions as outlined above would improve her clinical situation. Plans for possible transfer to [facility] were discussed as well given that she gets the majority of her care at that facility. They appeared to voice understanding. I will continue follow patient with you while she remains hospitalized and make further recommendations as needed. Thank you for allowing me to participate in the care of this patient. History of Present Illness Reason for Consult Consult date: 01/22/23 Reason for consult: end stage renal disease Chief Complaint Chief complaint: Intractable Flank Pain History of Present Illness Narrative: The patient was seen earlier today as well as currently while on treatment for dialysis (she was seen on HD at 5:15PM). The patient is a 52-year-old female with an extensive past medical history as outlined below who presented to [facility] Emergency Room for further evaluation of left-sided pain. The patient receives the majority of her care at [facility] and was just hospitalized there couple months ago for symptoms related to steal syndrome in her right hand/fingers. Surgical intervention was done with a graft taking from her right leg but this was unsuccessful as the graft clotted off and I believe the right AV access subsequently had to be ligated. She was subsequently discharged with ongoing wound care for her right hand/fingers. Apparently, on the evening of admission, the patient was woken up from sleep by severe sharp shooting pain in her left side radiating to her left lower back and left lower quadrant. It seemed to come and go in waves intensity but never really improved. She took some of her home oxycodone which was of no help. She denies any other subjective symptoms with regard to fevers, chills, diaphoresis, shortness of breath, chest pain, nausea, vomiting, palpitations, or dizziness. As the pain continued to persist, she came to the emergency room for further assessment. Workup and evaluation emergency room demonstrated the patient be hemodynamically stable although she does have chronic hypotension at baseline
[2023-01-22] MEDS: HYDROmorphone HCL INJ (*CRX) 1 MG/ML SYR IV PUSH (17:32)
[2023-01-22 17:35] LABS: Influenza A QL RT-PCR Negative (Negative); Influenza B QL RT-PCR Negative (Negative); RSV RNA, RT-PCR Negative (Negative); SARS-CoV-2 RNA PCR Negative (Negative)
[2023-01-22 17:41] LABS: Glucose Point of Care 236 mg/dl (65-105)
[2023-01-22] MEDS: INSULIN GLARGINE (*BKC) 100 UNITS/ML 10 UNITS SUB-Q (20:31)
[2023-01-22] MEDS: CINACALCET 30 MG TABLET 60 MG PO (20:31)
[2023-01-22 20:32] LABS: Glucose Point of Care 266 mg/dl (65-105)
[2023-01-22] MEDS: ONDANSETRON HCL ODT 4 MG TABLET PO (21:15)
[2023-01-22 23:34] LABS: Glucose Point of Care 240 mg/dl (65-105)
[2023-01-23] VITALS (24 sets, daily range): BP systolic 80–143; BP diastolic 19–67; PULSE 87–112; RESP 12–20; TEMP 36.1–37.2; O2SAT 90–99
[2023-01-23] MEDS: INSULIN ASPART (*BKC) 100 UNITS/ML SUB-Q ×2 (00:22→11:27)
[2023-01-23] MEDS: HYDROcodone/acetaminophen (*CRX) 10-325 MG TABLET 1 TAB PO ×3 (03:18→15:38)
[2023-01-23 05:41] LABS: Basophils Percent Auto 0.2 % (0.2-1.2); Hematocrit 36.5 % (37.0-47.0); Hemoglobin 11.2 g/dL (12.0-15.0); Immature Granulocyte Absolute 0.08 K/mm3 (0.00-0.031); Immature Granulocyte Percent A 0.6 % (0-0.5); Lymphocytes Percent Auto 6.6 % (18.3-44.2); Mean Corpuscular HGB Conc 30.7 g/dl (32-36); Mean Corpuscular Hemoglobin 26.3 pg (26-34); Mean Corpuscular Volume 85.7 fl (80-100); Mean Platelet Volume 10.4 fl (7.4-10.4); Monocytes Absolute Auto 1.5 K/mm3 (0.1-0.6); Monocytes Percent Auto 10.9 % (2.6-8.5); Neutrophils Absolute Auto 11.1 K/mm3 (1.3-6.7); Neutrophils Percent Auto 81.7 % (45.5-73.1); Platelet Count Result 246 k/mm3 (150-375); Red Blood Count 4.26 M/mm3 (4.2-5.4); Red Cell Distribution Width 19.3 % (11.5-14.5); White Blood Count 13.6 K/mm3 (4.5-10.0)
[2023-01-23 05:51] LABS: Alanine Aminotransferase 21 U/L (6-35); Albumin Level 3.2 g/dL (3.5-5.1); Alkaline Phosphatase 139 U/L (38-126); Anion Gap 15 mmol/L (8-16); Aspartate Amino Transferase 78 U/L (14-36); Bilirubin,Total 0.7 mg/dL (0.2-1.3); Blood Urea Nitrogen 37 mg/dL (7-17); Calcium 8.3 mg/dL (8.4-10.2); Carbon Dioxide 25 mmol/L (22-30); Chloride 89 mmol/L (98-107); Estimated CRCL calculation 11 ml/min; Estimated Glomerular Filt Rate 5; Glucose 154 mg/dL (65-110); Phosphorus 6.1 mg/dL (2.5-4.5); Potassium 4.9 mmol/L (3.4-5.0); Sodium 129 mmol/L (137-145)
[2023-01-23] MEDS: GABAPENTIN 100 MG CAPSULE PO ×2 (08:42→17:02)
[2023-01-23] MEDS: PANTOPRAZOLE 40 MG TABLET PO (08:42)
[2023-01-23] MEDS: SODIUM ZIRCONIUM CYCLOSILICATE 10 GM POWD.PACK PO (08:47)
[2023-01-23 09:04] LABS: Glucose Point of Care 227 mg/dl (65-105)
--- NOTE | 2023-01-23 09:36 | PC.NURSE ---
Pt's requesting that pt's blood glucose be checked. OFFICE SPEC checked pt's glucose per request. Blood glucose results were elevated at 227. This RN updated pt's that the pt's blood sugar has been running in the 200's since admission, and that there are no orders at this time to treat the blood sugar. RN reminded pt's that pt is an every 6 hour accu-check. RN stated to We check the pt's blood sugar every 6 hours unless pt is symptomatic. RN informed pt's that RN would have to call MD to see if MD would want to treat the blood glucose since the pt is asymptomatic. If MD would want to treat the blood glucose, RN will have to get an order for insulin. Dr. Russ in agreement with treating pt's blood glucose at this time. New order to Give the 1200 dose of sliding scale insulin now. Pt may have a renal diet, if she's able to sit up. No need to recheck 1200 sugar since we're treating it now.
[2023-01-23] MEDS: HYDROmorphone HCL INJ (*CRX) 1 MG/ML SYR IV PUSH (10:25)
[2023-01-23] MEDS: MIDODRINE HCL 2.5 MG TABLET 10 MG PO (11:23)
--- NOTE | 2023-01-23 11:25 | PC.NURSE ---
Pt to dialysis via bed
[2023-01-23 12:20] LABS: Glucose Point of Care 266 mg/dl (65-105)
--- NOTE | 2023-01-23 12:22 | PHAR ---
HOME MED: PAROXETINE ER 12.5 MG TABLET, TAKE ONE TABLET BY MOUTH EVERY MORNING, IDENTIFIED IN PHARMACY AND RETURNED TO IMU.
--- NOTE | 2023-01-23 12:30 | PM.PNNEP ---
Progress Note: A&P Assessment and Plan (1) ESRD (end stage renal disease): Code(s): N18.6 - End stage renal disease Status: Chronic Assessment and Plan: HD today (since only received partial treatment yesterday and had MRI this AM) continue M/W/F dialysis schedule while hospitalized follow electrolytes, volume status, and clearance (2) Hyperkalemia: Code(s): E87.5 - Hyperkalemia Status: Acute Assessment and Plan: improving as noted by labs on admission s/p medical management dialysis should correct/stabilize (3) Sepsis: Code(s): A41.9 - Sepsis, unspecified organism Status: Acute Assessment and Plan: noted by fever, tachycardia, elevated WBC, and positive blood cultures presumed source are her right hand/fingers with gangrene MRI of lumbar spine without diskitis or epidural abscess... blood culture with Enterococcus follow repeat cultures on antibiotics (4) Intractable back pain: Code(s): M54.9 - Dorsalgia, unspecified Status: Acute Assessment and Plan: see #3 pain control MRI of lumbar spine noted (5) Osteomyelitis of finger of right hand: Code(s): M86.9 - Osteomyelitis, unspecified Status: Chronic Assessment and Plan: local wound care X-rays noted on antibiotics (6) Type 1 diabetes mellitus: Code(s): E10.9 - Type 1 diabetes mellitus without complications Status: Chronic Assessment and Plan: normally on insulin pump at home suspect hyperglycemia may be related to acute infection follow accu-cheks glycemic control per hospitalists Will continue to follow. Subjective Date/time seen: 01/23/23 12:30 Interval history: Follow-up for end stage renal disease on hemodialysis. Tolerating hemodialysis treatment at the time of my visit (seen on HD at 12:15PM); dialysis treatment yesterday evening ended early due to patient request (received only about 2 hours of treatment); pain control doing quite well at this time; central line okay to use per Radiology evaluation this morning. Exam Narrative: General: WD/WN female in NAD Heart: normal S1 and S2; no rub Lungs: clear anteriorly Abdomen: soft, nontender, nondistended, positive bowel sounds Extremities: no cyanosis or clubbing; no edema Skin: 2nd/3rd right finger gangrene noted Objective Data Vital Signs Vital Signs: Vital Signs Temp Pulse Resp BP Pulse Ox O2 Del Method O2 Flow Rate 01/23/23 11:52 97.6 F 20 109/42 L 96 01/23/23 08:00 99 Nasal Cannula 1 01/23/23 09:19 93 Nasal Cannula 1 01/23/23 08:00 98.0 F 96 12 130/47 L 99 01/23/23 06:00 89 01/23/23 04:00 97 F L 95 18 96/51 L 95 01/23/23 04:00 95 01/23/23 04:00 96 18 98 Nasal Cannula 2 01/23/23 02:00 96 01/23/23 00:00 112 H 01/23/23 00:00 110 H 18 98 Nasal Cannula 2 01/23/23 00:00 98.7 F 110 H 18 85/36 L 98 01/22/23 22:00 128 H 01/22/23 20:00 125 H 01/22/23 21:17 98 Nasal Cannula 2 01/22/23 20:00 125 H 18 98 Nasal Cannula 2 01/22/23 19:05 126 H 113/71 01/22/23 19:00 86 137/93 H 01/22/23 19:56 99/66 L 01/22/23 19:47 98.4 F 125 H 18 98 01/22/23 18:00 120 H 01/22/23 16:00 90 01/22/23 14:00 98 01/22/23 18:15 132 H 116/49 L 01/22/23 18:00 122 H 126/81 01/22/23 17:45 112 H 119/57 L 01/22/23 17:30 106 H 114/77 01/22/23 17:15 99 129/67 01/22/23 19:10 99.1 F 131 H 20 99/61 L 01/22/23 18:45 122 H 84/65 L 01/22/23 18:30 108 H 94/46 L 01/22/23 17:00 2 01/22/23 16:39 98.9 F 100 20 117/64 01/22/23 17:00 98 111/65 Intake/Output Intake/Output: Intake & Output 01/20/23 01/21/23 01/22/23 01/23/23 23:59 23:59 23:59 23:59 Intake Total 700 50 Output Total 0 1565 0 Arturo
--- NOTE | 2023-01-23 12:30 | P.PNNP_ITS ---
Progress Note: A&P Assessment and Plan (1) ESRD (end stage renal disease): Code(s): N18.6 - End stage renal disease Status: Chronic Assessment and Plan: * HD today (since only received partial treatment yesterday and had MRI this AM) * continue M/W/F dialysis schedule while hospitalized * follow electrolytes, volume status, and clearance (2) Hyperkalemia: Code(s): E87.5 - Hyperkalemia Status: Acute Assessment and Plan: * improving * as noted by labs on admission * s/p medical management * dialysis should correct/stabilize (3) Sepsis: Code(s): A41.9 - Sepsis, unspecified organism Status: Acute Assessment and Plan: * noted by fever, tachycardia, elevated WBC, and positive blood cultures * presumed source are her right hand/fingers with gangrene * MRI of lumbar spine without diskitis or epidural abscess... * blood culture with Enterococcus * follow repeat cultures * on antibiotics (4) Intractable back pain: Code(s): M54.9 - Dorsalgia, unspecified Status: Acute Assessment and Plan: * see #3 * pain control * MRI of lumbar spine noted (5) Osteomyelitis of finger of right hand: Code(s): M86.9 - Osteomyelitis, unspecified Status: Chronic Assessment and Plan: * local wound care * X-rays noted * on antibiotics (6) Type 1 diabetes mellitus: Code(s): E10.9 - Type 1 diabetes mellitus without complications Status: Chronic Assessment and Plan: * normally on insulin pump at home * suspect hyperglycemia may be related to acute infection * follow accu-cheks * glycemic control per hospitalists Will continue to follow. Subjective Date/time seen: 01/23/23 12:30 Interval history: Follow-up for end stage renal disease on hemodialysis. Tolerating hemodialysis treatment at the time of my visit (seen on HD at 12:15PM); dialysis treatment yesterday evening ended early due to patient request (received only about 2 hours of treatment); pain control doing quite well at this time; central line okay to use per Radiology evaluation this morning. Exam Narrative: General: WD/WN female in NAD Heart: normal S1 and S2; no rub Lungs: clear anteriorly Abdomen: soft, nontender, nondistended, positive bowel sounds Extremities: no cyanosis or clubbing; no edema Skin: 2nd/3rd right finger gangrene noted Objective Data Vital Signs Vital Signs: Vital Signs Temp Pulse Resp BP Pulse Ox O2 Del Method O2 Flow Rate 01/23/23 11:52 97.6 F 20 109/42 L 96 01/23/23 08:00 99 Nasal Cannula 1 01/23/23 09:19 93 Nasal Cannula 1 01/23/23 08:00 98.0 F 96 12 130/47 L 99 01/23/23 06:00 89 01/23/23 04:00 97 F L 95 18 96/51 L 95 01/23/23 04:00 95 01/23/23 04:00 96 18 98 Nasal Cannula 2 01/23/23 02:00 96 01/23/23 00:00 112 H 01/23/23 00:00 110 H 18 98 Nasal Cannula 2 01/23/23 00:00 98.7 F 110 H 18 85/36 L 98 01/22/23 22:00 128 H 01/22/23 20:00 125 H 01/22/23 21:17 98 Nasal Cannula 2 01/22/23 20:00 125 H 18 98 Nasal Cannula 2 01/22/23 19:05 126 H 113/71 01/22/23 19:00 86 137/93 H 01/22/23 19:56 99/66 L
[2023-01-23] MEDS: ALBUMIN HUMAN 25% 12.5 GM/50ML 50 ML 999 GM (12:57)
[2023-01-23] MEDS: SODIUM CHLORIDE 0.9% IV 1,000 ML 999 ML IV CONT (13:05)
[2023-01-23] MEDS: ALBUMIN HUMAN 25% 12.5 GM/50ML 50 ML IVPB ×2 (13:32→15:17)
[2023-01-23 13:49] LABS: Vancomycin Random 14.2 ug/mL (10-20)
--- NOTE | 2023-01-23 15:17 | PC.NURSE ---
Pt returned from dialysis via bed. No issues noted
[2023-01-23] MEDS: VANCOMYCIN 1,250 MG/NS 250 ML 1,250 MG/250 ML BAG 166.67 MG IVPB (15:39)
[2023-01-23] MEDS: SILVER SULFADIAZINE 1% CR 50 GM JAR (*BKC) 1 APPLIC TOPICAL (15:44)
[2023-01-23 16:52] LABS: Glucose Point of Care 97 mg/dl (65-105)
[2023-01-23] MEDS: SEVELAMER CARBONATE 800 MG TABLET 3200 MG BY MOUTH (17:02)
--- NOTE | 2023-01-23 17:19 | PM.IMPN ---
Progress Note: A&P Assessment and Plan (1) Septicemia: Code(s): A41.9 - Sepsis, unspecified organism Status: Acute Assessment and Plan: Patient presents with complaints of intractable back pain. Patient had been just discharged from [facility] 2 days prior to this admission. On presentation, she has evidence of sepsis with tachycardia, leukocytosis, fever and now positive blood cultures. Procalcitonin is 4.2. WBC 14K. She has known dry gangrene involving two of her fingers on her right hand with one that was noted to be draining purulent matl. CT scan the abdomen/pelvis shows a 5.8 cm cyst in the left adnexa likely benign o/w no acute findings. Started on Rocephin and vancomycin. Central line placed 01/22 for IV abx. BCx 01/21 growing Enterococcus faecalis. Sensitivities pending BCx 01/23 pending (BCx may still be positive since vanco dosing skewed due to lack of IV access) Source is unclear but she does have right finger necrosis and purulence. She has been accepted at [facility] and awaiting bed availability Check Echo; may need LISSETTE. Continue IV abx. Narrow coverage when able (2) Intractable back pain: Code(s): M54.9 - Dorsalgia, unspecified Status: Acute Assessment and Plan: Patient was having intractable low back pain with positive blood cultures given concern for epidural abscess or diskitis.? CT scan showed severe osteoarthritis of the sacroiliac joint noted which could be the etiology of her back pain although patient's symptoms began 2 days before this admission.?? MRI Lumbar spine with/without contrast showing mild lumbar spondylosis Increase activity. PT/OT (3) Osteomyelitis of finger of right hand: Code(s): M86.9 - Osteomyelitis, unspecified Status: Chronic Assessment and Plan: Right middle and pointer finger necrosis present on admission. Noted to have purulent drainage from the right middle finger. Xray her showing findings suspicious for osteomyelitis involving the slaughter surface of the right 2nd through 4th distal phalanges and distal aspect of the right second and third middle phalanges. As above. Wound care consult. Continue dressing changes. (4) Electrolyte abnormality: Code(s): E87.8 - Other disorders of electrolyte and fluid balance, not elsewhere classified Status: Acute Assessment and Plan: Patient with hyperkalemia on admission. She was treated appropriately. Sodium was low 131. She is compliant with her dialysis that she receives on [facility]. Phosphorus was elevated but not uncommon for her. Potassium normal today. Stop Lokelma. Sodium down to 129. Follow Phos higher at 6.1. Continue Renvela and Sensipar (5) Adnexal cyst: Code(s): N94.9 - Unspecified condition associated with female genital organs and menstrual cycle Status: Acute Assessment and Plan: Patient was having left flank pain on admission. CT scan the abdomen/pelvis shows a 5.8 cm cyst in the left adnexa likely benign.?Pelvic ultrasound also reveals the left adnexa and cyst likely hemorrhagic.? This is probably unrelated to her back pain.? REGIONAL SALES MANAGER consulted and did not feel the patient's acute pain was related to the left adnexa. Plan to follow up imaging of the pelvis in 6-8 weeks would be prudent.? Appreciate REGIONAL SALES MANAGER input. (6) End-stage renal disease on hemodialysis: Code(s): N18.6 - End stage renal disease; Z99.2 - Dependence on renal dialysis Status: Acute Assessment and Plan: Patient with end-stage renal disease. She receives dialysis Sunday. She states she is compliant with treatment. Nephrology has been consulted. HD per Nephrology instructions (7) Type 1 diabetes mellitus: Code(s): E10.9 - Type 1 diabetes mellitus without complications Status: Chronic Assessment and Plan: The patient's blood glucose was reviewed on 01/23 Glucose widely fluctuates
--- NOTE | 2023-01-23 19:06 | PM.GYNPNOP ---
SPACE AND STORAGE CLERK - A/P Assessment and plan (1) Hemorrhagic cyst of left ovary: Code(s): N83.202 - Unspecified ovarian cyst, left side Status: Acute Assessment and Plan: A: Left adnexal cyst, likely representing a hemorrhagic ovarian cyst. I do not believe it is related to her back pain. P: Follow up pelvic ultrasound exam in 6-8 weeks would be prudent. Time Spent With Patient Time with patient: 15 - 25 minutes SPACE AND STORAGE CLERK- PN:Subj Post-Op Subjective Date/time seen: 01/23/23 19:06 Interval history: Tolerating diet. Flank pain mild currently. She expects to be transferred back to [place], [facility]. Exam GI: Other: Abdomen soft, obese, nontender. No guarding or rebound tenderness. SPACE AND STORAGE CLERK - PN: Obj Data Vital Signs Vital Signs: Vital Signs - 24 hr 01/22/23 19:10 01/22/23 19:47 01/22/23 19:56 Temperature 37.3 C 36.9 C Pulse Rate 131 H 125 H Respiratory Rate 20 18 Blood Pressure 99/61 L 99/66 L Pulse Oximetry 98 Oxygen Delivery Oxygen Flow Rate 01/22/23 20:00 01/22/23 21:17 01/22/23 20:00 Temperature Pulse Rate 125 H 125 H Respiratory Rate 18 Blood Pressure Pulse Oximetry 98 98 Oxygen Delivery Nasal Cannula Nasal Cannula Oxygen Flow Rate 2 2 01/22/23 22:00 01/23/23 00:00 01/23/23 00:00 Temperature 37.1 C Pulse Rate 128 H 110 H 110 H Respiratory Rate 18 18 Blood Pressure 85/36 L Pulse Oximetry 98 98 Oxygen Delivery Nasal Cannula Oxygen Flow Rate 2 01/23/23 00:00 01/23/23 02:00 01/23/23 04:00 Temperature Pulse Rate 112 H 96 96 Respiratory Rate 18 Blood Pressure Pulse Oximetry 98 Oxygen Delivery Nasal Cannula Oxygen Flow Rate 2 01/23/23 04:00 01/23/23 04:00 01/23/23 06:00 Temperature 36.1 C L Pulse Rate 95 95 89 Respiratory Rate 18 Blood Pressure 96/51 L Pulse Oximetry 95 Oxygen Delivery Oxygen Flow Rate 01/23/23 08:00 01/23/23 09:19 01/23/23 08:00 Temperature 36.7 C Pulse Rate 96 Respiratory Rate 12 Blood Pressure 130/47 L Pulse Oximetry 99 93 99 Oxygen Delivery Nasal Cannula Nasal Cannula Oxygen Flow Rate 1 1 01/23/23 11:52 01/23/23 11:42 01/23/23 12:00 Temperature 36.4 C 36.7 C Pulse Rate 93 92 Respiratory Rate 20 16 Blood Pressure 109/42 L 97/42 L 110/37 L Pulse Oximetry 96 Oxygen Delivery Oxygen Flow Rate 01/23/23 12:15 01/23/23 12:30 01/23/23 12:45 Temperature Pulse Rate 91 90 93 Respiratory Rate Blood Pressure 143/67 H 91/36 L 88/19 L Pulse Oximetry Oxygen Delivery Oxygen Flow Rate 01/23/23 13:00 01/23/23 13:15 01/23/23 13:30 Temperature Pulse Rate 88 98 89 Respiratory Rate Blood Pressure 90/31 L 90/31 L 80/30 L Pulse Oximetry Oxygen Delivery Oxygen Flow Rate 01/23/23 13:45 01/23/23 14:00 01/23/23 14:30 Temperature Pulse Rate 87 95 87 Respiratory Rate Blood Pressure 83/29 L 105/32 L 96/46 L Pulse Oximetry Oxygen Delivery Oxygen Flow Rate 01/23/23 14:44 01/23/23 14:15 01/23/23 15:56 Temperature 37.0 C 37.2 C Pulse Rate 95 87 94 Respiratory Rate 18 16 Blood Pressure 105/49 L 93/48 L 111/52 L Pulse Oximetry 90 Oxygen Delivery Oxygen Flow Rate 01/23/23 16:00 01/23/23 08:00 01/23/23 10:00 Temperature Pulse Rate 97 95 Respiratory Rate Blood Pressure Pulse Oximetry 94 Oxygen Delivery Room Air Oxygen Flow Rate 01/23/23 12:00 01/23/23 14:00 01/23/23 16:00 Temperature Pulse Rate 93 90 103 H Respiratory Rate Blood Pressure Pulse Oximetry Oxygen Delivery Oxygen Flow Rate 01/23/23 18:00 Temperature Pulse Rate 106 H Respiratory Rate Blood Pressure Pulse Oximetry Oxygen Delivery Oxygen Flow Rate Intake/Output Intake/Output: Intake & Output 01/20/23 01/21/23 01/22/23 01/23/23 23:59 23:59 23:59 23:59 Intake Total 700 50 340 Output Total 0 1565 1999 Balance [phone] Meds/Results Medicati
--- NOTE | 2023-01-23 19:22 | PC.NURSE ---
Pt transferred to [facility] via [facility]. Family at bedside and aware of transfer. Report called to JAN Rothman @ [phone]. [facility] in place at time of transfer
--- NOTE | 2023-01-24 09:27 | PM.TDS ---
Transfer Discharge Sum: Prov Provider Date of admission: 01/22/23 09:57 Primary care physician: Thomas Diez MD Admitting clinician: Aubrey Duran MD Consults: 01/21/23 Consult to Physician Routine Comment: Consulting Provider: Chacorta Wagner crane oiler/MD group to consult: nephrology Reason for consultation: dialysis Has provider been notified: Yes Consult to Physician Routine Comment: spoke with Dr. Rodas @[phone](ER,US) Consulting Provider: Ovidio Rodas crane oiler/MD group to consult: Gynecology Reason for consultation: intractable pain left adnexal hemorrhagic cyst Has provider been notified: Yes 01/22/23 Wound/ET Consult Routine Reason for Consult:: rt finger gangrene 01/22/23 12:34 Consult to Physician Routine Comment: spoke with Briana in office @[phone](ER,US) Consulting Provider: Umm Murillo crane oiler/MD group to consult: General surgery Reason for consultation: needs IV access Has provider been notified: Yes DS: Admitting Diagnosis Discharge Date 01/23/23 Admitting Diagnosis Left-sided abdominal pain DS: Discharge Diagnosis Discharge Diagnosis (1) Septicemia: Code(s): A41.9 - Sepsis, unspecified organism Status: Acute (2) Intractable back pain: Code(s): M54.9 - Dorsalgia, unspecified Status: Acute (3) Osteomyelitis of finger of right hand: Code(s): M86.9 - Osteomyelitis, unspecified Status: Chronic (4) Electrolyte abnormality: Code(s): E87.8 - Other disorders of electrolyte and fluid balance, not elsewhere classified Status: Acute (5) Adnexal cyst: Code(s): N94.9 - Unspecified condition associated with female genital organs and menstrual cycle Status: Acute (6) End-stage renal disease on hemodialysis: Code(s): N18.6 - End stage renal disease; Z99.2 - Dependence on renal dialysis Status: Acute (7) Type 1 diabetes mellitus: Code(s): E10.9 - Type 1 diabetes mellitus without complications Status: Chronic Transfer Discharge Sum: Med Medications Active and Home Medications: Home Medications apixaban 5 mg tablet (Eliquis) 5 mg PO Q12H 03/28/19 [History Confirmed 01/21/23] cinacalcet 60 mg tablet (Sensipar) 60 mg PO HS 03/28/19 [History Confirmed 01/21/23] midodrine 5 mg tablet 10 mg PO TID 03/22/21 [History Confirmed 01/21/23] blood sugar diagnostic #400 ea 01/12/22 [Rx Confirmed 01/21/23] blood sugar diagnostic #400 ea 11/27/22 [Rx Confirmed 01/21/23] blood-glucose sensor (Dexcom G6 Sensor device) #3 ea 12/26/22 [Rx Confirmed 01/21/23] gabapentin 100 mg capsule 100 mg PO BID 01/12/23 [History Confirmed 01/21/23] paroxetine HCl 12.5 mg tablet,extended release 24 hr 12.5 mg PO QAM 01/12/23 [History Confirmed 01/21/23] atorvastatin 40 mg tablet 40 mg PO DAILY 01/21/23 [History Confirmed 01/21/23] diclofenac sodium 1 % topical gel 2 g topical QID 01/21/23 [History Confirmed 01/21/23] insulin aspart U-100 100 unit/mL subcutaneous solution (Novolog U-100 Insulin aspart) 12 unit continuous subcutaneous infusion DAILY 01/21/23 [History Confirmed 01/21/23] omeprazole 40 mg capsule,delayed release 40 mg PO BID 01/21/23 [History Confirmed 01/21/23] sevelamer carbonate 800 mg tablet (Renvela) See Rx Instructions .Route .COMPLEX 01/21/23 [History Confirmed 01/21/23] blood-glucose meter,continuous (Dexcom G7 Stripping Shovel Operator) #1 ea 01/24/23 [Rx] Transfer Discharge Sum: Hosp Hospital Course Hospital course: Isamar Cantrell is a 52yo female with ESRD, DM type I, RCC s/p nephrectomy, subclavian steal syndrome, gangrene to the right pointer and middle finger here for left flank and low back pain.Please see H&P for details. (1) Septicemia: Patient presents with complaints of intractable back pain and left flank abdominal pain.? Patient was just discharged from [facility] 2 days prior to this admission.? On presentation, she has evidence of sepsis with tachycardia, leukocytosis, fever and
== END 2023-01-23 19:19 | disposition short-term general hospital (02) | DRG 539 ==
LOC: ANHED 12:22 → ANH3MEDSUR 12:31 → ANHIMU 17:44
PROVIDERS: Emergency Medicine; Internal Medicine Nephrology; Physician Assistant; Admitting Provider Internal Medicine; Emergency Provider Emergency Medicine; PCP Family Medicine; Visit Provider Internal Medicine
DX: M86.141 Other acute osteomyelitis, right hand (principal); N18.6 End stage renal disease; E10.52 Type 1 diabetes mellitus with diabetic peripheral angiopathy with gangrene; I96 Gangrene, not elsewhere classified; G45.8 Other transient cerebral ischemic attacks and related syndromes; N25.81 Secondary hyperparathyroidism of renal origin; F33.9 Major depressive disorder, recurrent, unspecified; Z68.41 Body mass index [BMI] 40.0-44.9, adult; I15.0 Renovascular hypertension; E10.69 Type 1 diabetes mellitus with other specified complication; E10.41 Type 1 diabetes mellitus with diabetic mononeuropathy; E10.22 Type 1 diabetes mellitus with diabetic chronic kidney disease; E10.319 Type 1 diabetes mellitus with unspecified diabetic retinopathy without macular edema; E10.649 Type 1 diabetes mellitus with hypoglycemia without coma; E87.5 Hyperkalemia; E78.5 Hyperlipidemia, unspecified; E55.9 Vitamin D deficiency, unspecified; E66.01 Morbid (severe) obesity due to excess calories; E87.8 Other disorders of electrolyte and fluid balance, not elsewhere classified; K21.9 Gastro-esophageal reflux disease without esophagitis; M47.818 Spondylosis without myelopathy or radiculopathy, sacral and sacrococcygeal region; G56.91 Unspecified mononeuropathy of right upper limb; N83.202 Unspecified ovarian cyst, left side; R29.6 Repeated falls; F41.9 Anxiety disorder, unspecified; Z96.41 Presence of insulin pump (external) (internal); Z20.822 Contact with and (suspected) exposure to COVID-19; Z99.2 Dependence on renal dialysis; Z79.4 Long term (current) use of insulin; Z79.82 Long term (current) use of aspirin; Z79.01 Long term (current) use of anticoagulants; Z85.528 Personal history of other malignant neoplasm of kidney; Z89.022 Acquired absence of left finger(s)
CPT/HCPCS: 36415; 36598; 71045; 72158; 73130; 74176; 76830; 76856; 80053; 80202; 82948; 83605; 83690; 83735; 84100; 84145; 84439; 84443; 84480; 84484; 85025; 85027; 85610; 85730; 86706; 87040; 87077; 87186; 87340; 87637; 93005; 96365; 96366; 96374; 96375; 96376; 99285; A9270; A9577; C1751; G0257; G0378; J0612; J0696; J1170; J1644; J1815; J2270; J2405; J3010; J3360; J3370; J7030; P9047; Q9966; Q9967

== ENCOUNTER 2023-02-24 13:16 | Inpatient (IN) | payer MEDICARE, SELFPAY ==
[2023-02-24] VITALS (67 sets, daily range): BP systolic 92–197; BP diastolic 27–183; PULSE 89–114; RESP 12–29; TEMP 35.8–36.7; O2SAT 94–100
--- NOTE | ~2023-02-24 | CT_ITS ---
EXAMINATION: CT abdomen pelvis wo con DATE: 02/24/2023 15:02 INDICATION: abdominal pain, R flank pain TECHNIQUE: Computed tomography (CT) of the abdomen and pelvis was performed without intravenous contr ast. Automated exposure control and iterative reconstruction technique were employed. The dose-length product was 1563.73 mGy-cm. COMPARISON: 01/21/2023; ultrasound pelvic complete with TV 01/21/2023. FINDINGS: Lower thorax: Mild cardiomegaly. Heavy coronary artery calcification. Dependent atelectasis. Liver: Normal. Biliary/Gallbladder: Dependent hyperdensity likely representing sludge or stones, no inflammatory nayeli nge. Pancreas moderate atrophy. Pancreas: No mass or duct dilation. Spleen: Normal. Adrenals:No mass. Kidneys: Status post right nephrectomy. Severe left renal atrophy. Multiple simple left renal cysts. Scattered left renal nephroliths and vascular calcifications. GI tract: No small or large bowel dilation. Appendix not visualized, surgically absent by history. Mesentery/Peritoneum: No ascites, mass, or free air. Retroperitoneum: No mass. Atherosclerotic abdominal aortic and/or arterial calcifications. Pelvis: Decompressed urinary bladder. Normal uterus. Redemonstration of the fluid density simple appe aring left adnexal cyst, now measuring 6.0 x 2.6 (previously previously 6.6 x 2.7 cm by my measuremen isha). Soft Tissues: Soft tissues and body wall unremarkable. Bones: No acute osseous finding. Right femoral head AVN. IMPRESSION: No acute abdominopelvic process detected. Left adnexal cyst, slightly decreased in size, likely resolving hemorrhagic cyst. Reviewed, dictated and finalized at location K. CAD IMPRESSION: No acute abdominopelvic process detected. Left adnexal cyst, slightly decreased in size, likely resolving hemorrhagic cys t.
--- NOTE | ~2023-02-24 | XR_ITS ---
EXAMINATION: XR chest 1V Exam Date/Time: 02/24/2023 15:00 PHYSICAL SECURITY SPECIALIST HISTORY: right abdominal pain, in rehab for sepsis Comparison: 01/22/2023. RESULT: Lines, tubes, and devices: None. Lungs and pleura: Streaky dependent atelectasis, otherwise clear. Cardiomediastinal silhouette: Stable. Other: No acute osseous or upper abdominal finding. IMPRESSION: No acute cardiopulmonary process. Reviewed, dictated and finalized at location K. ICAL SECURITY SPECIALIST
--- NOTE | 2023-02-24 14:02 | ED.GENADULT ---
HPI - General Adult General Chief complaint: Back Pain/Injury Stated complaint: R flank pain Time Seen by Provider: 02/24/23 13:43 Source: patient and EMS Mode of arrival: EMS Limitations: no limitations History of Present Illness HPI narrative: 52 years old white female came from rehab with her right abdominal pain right flank pain started yesterday, gradually getting worse associated with nausea. She denies any fever, chills, vomiting, diarrhea, constipation or urinary symptoms. History of diabetes, hyperlipidemia, dialysis, status post right kidney excision secondary to cancer, Patient was discharged from [facility] 5 days ago after 4 weeks hospitalization for infection of the spine and right knee. Currently on IV antibiotic. Patient was discharged to go to rehab, to increase the strength of the lower extremities. Patient is bed ridden unable to stand which is her baseline. Last dialysis was yesterday. Currently patient on Eliquis due to cloged dialysis graft Related Data Home Medications Medication Instructions Recorded Confirmed apixaban 5 mg tablet (Eliquis) 5 mg PO Q12H 03/28/19 02/20/23 midodrine 5 mg tablet 10 mg PO TID 03/22/21 02/20/23 paroxetine HCl 12.5 mg 12.5 mg PO QAM 01/12/23 02/20/23 tablet,extended release 24 hr atorvastatin 40 mg tablet 40 mg PO DAILY 01/21/23 02/20/23 diclofenac sodium 1 % topical gel 2 g topical QID PRN Pain rated 5 01/21/23 02/20/23 or less insulin aspart U-100 100 unit/mL 0 unit continuous subcutaneous 01/21/23 02/20/23 subcutaneous solution (Novolog infusion DAILY U-100 Insulin aspart) sevelamer carbonate 800 mg tablet 800 mg PO AC 01/21/23 02/20/23 (Renvela) aspirin 325 mg tablet,delayed 325 mg PO DAILY 02/20/23 02/20/23 release calcium acetate(phosphat bind) 667 667 mg PO DAILY 02/20/23 02/20/23 mg capsule cinacalcet 30 mg tablet 30 mg PO DAILY 02/20/23 02/20/23 ergocalciferol (vitamin D2) 50,000 50,000 unit PO WEEKLY 02/20/23 02/20/23 unit tablet omeprazole 20 mg capsule,delayed 20 mg PO BID 02/20/23 02/20/23 release oxycodone 5 mg tablet 5 mg PO Q4H PRN Pain rated 6 or 02/20/23 02/20/23 greater vancomycin 1,000 mg intravenous g 02/20/23 injection Allergies Allergy/AdvReac Type Severity Reaction Status Date / Time No Known Allergies Allergy Unknown Verified 01/21/23 05:47 Review of Systems Review of Systems: All systems reviewed & are unremarkable except as noted in HPI and below PMFSH Past Medical History Medical History Anxiety and depression Chronic anticoagulation Chronic GERD Diabetic peripheral neuropathy End-stage renal disease on hemodialysis History of renal cell cancer Hyperlipidemia, unspecified Hypovitaminosis D Major depressive disorder, recurrent episode with anxious distress 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 Family History Family History Father Family history of kidney disease Family history of diabetes mellitus in first degree relative Diabetes mellitus Hypertension Patient's father is , Onset Age: 52 Mother Patient's mother is in good health Social History Social History Social History: Surrogate medical decision maker: John Cantrell, spouse. Code status: Full code. Smoking status: Never smoker Alcohol intake: never Substance use: never Substance use type: does not use Lack of Transportation: No
--- NOTE | 2023-02-24 14:03 | ECG_ITS ---
Measurements Intervals Hurt Rate: 89 P: 64 [place]: 175 QRS: 65 QRSD: 90 T: 21 QT: 361 QTc: 440 Interpretive Statements SINUS RHYTHM LOW QRS VOLTAGE [QRS DEFLECTION < 0.5/1.0 mV IN LIMB/CHEST LEADS] ABNORMAL ECG COMPARED TO ECG 01/21/2023 05:49:38 NO SIGNIFICANT CHANGES Electronically Signed On 02-25-2023 8:57:11 DIRECTOR OF RETAIL by Dk Pretty M.D.
[2023-02-24] MEDS: SODIUM CHLORIDE 0.9% IV 1,000 ML 500 ML IV CONT (14:37)
[2023-02-24] MEDS: HYDROmorphone HCL INJ (*CRX) 1 MG/ML SYR 0.5 MG IV PUSH ×3 (14:37→18:26)
[2023-02-24] MEDS: ONDANSETRON INJ 4 MG/2 ML VIAL IV PUSH ×2 (14:38→23:51)
--- NOTE | 2023-02-24 14:43 | PC.NURSE ---
pt is unable to void due to pmh of kidney issues and not producing urine. notified
[2023-02-24 15:44] LABS: Basophils Absolute Auto 0.1 K/mm3 (0.0-0.1); Basophils Percent Auto 0.8 % (0.2-1.2); Eosinophils Absolute Auto 0.5 K/mm3 (0-0.3); Eosinophils Percent Auto 5.9 % (0-4.4); Hemoglobin 7.3 g/dL (12.0-15.0); Immature Granulocyte Absolute 0.03 K/mm3 (0.00-0.031); Immature Granulocyte Percent A 0.4 % (0-0.5); Lymphocytes Absolute Auto 0.59 K/mm3 (0.9-3.2); Lymphocytes Percent Auto 7.5 % (18.3-44.2); Mean Corpuscular HGB Conc 29.2 g/dl (32-36); Mean Corpuscular Hemoglobin 26.1 pg (26-34); Mean Corpuscular Volume 89.3 fl (80-100); Mean Platelet Volume 9.5 fl (7.4-10.4); Monocytes Absolute Auto 0.7 K/mm3 (0.1-0.6); Monocytes Percent Auto 9.1 % (2.6-8.5); Neutrophils Percent Auto 76.3 % (45.5-73.1); Platelet Count Result 443 k/mm3 (150-375); Red Cell Distribution Width 18.2 % (11.5-14.5); White Blood Count 7.8 K/mm3 (4.5-10.0)
[2023-02-24 15:52] LABS: INR 1.6; Partial Thromboplastin Time 47.4 SECONDS (22.3-36.8); Prothrombin Time 20.2 Seconds (11.1-14.7)
[2023-02-24 15:54] LABS: Anisocytosis 1+ (NORMAL); Hypochromasia 1+ (NORMAL); Lactic Acid Reflex 0.8 mmol/L (0.7-2.0); Platelet Estimate Increased (Adequate); Schistocytes None Seen (NORMAL); Target Cells 1+ (NORMAL)
[2023-02-24 15:55] LABS: Alanine Aminotransferase 10 U/L (6-35); Albumin Level 2.2 g/dL (3.5-5.1); Alkaline Phosphatase 266 U/L (38-126); Anion Gap 6 mmol/L (8-16); Aspartate Amino Transferase 19 U/L (14-36); Bilirubin,Total 0.3 mg/dL (0.2-1.3); Blood Urea Nitrogen 16 mg/dL (7-17); CRP 4.4 mg/dL (<1.0); Calcium 7.2 mg/dL (8.4-10.2); Carbon Dioxide 23 mmol/L (22-30); Chloride 106 mmol/L (98-107); Estimated CRCL calculation 25 ml/min; Estimated Glomerular Filt Rate 14; Glucose 91 mg/dL (65-110); Lipase 38 U/L (23-300); Sodium 135 mmol/L (137-145)
[2023-02-24] MEDS: POTASSIUM CHLORIDE 20 MEQ PACKET (FOR LIQUID) 40 MEQ PO ×2 (16:40→23:51)
[2023-02-24] MEDS: SODIUM CHLORIDE 0.9% IV 250 ML 30 ML IV CONT (18:28)
[2023-02-24] MEDS: PANTOPRAZOLE SODIUM IV 40 MG VIAL IV PUSH (18:28)
--- NOTE | 2023-02-24 21:31 | PC.NURSE ---
[facility] transfer team called @[phone] for pt report and status. they called again and I spoke to tony christina @[phone] for pt update. currently no beds available for pt at [facility]
[2023-02-24] MEDS: TUBING, BLOOD PLUM PUMP TUBING 1 EACH XX (22:45)
--- NOTE | 2023-02-24 23:03 | PC.NURSE ---
pt report and care given to JAN Weems. all questions answered.
--- NOTE | 2023-02-24 23:38 | PC.NURSE ---
Pt c/o increased nausea and back pain. States pain is not different from pain she came to ED with. EDP notified. New orders placed.
[2023-02-24] MEDS: HYDROmorphone HCL INJ (*CRX) 1 MG/ML SYR IV PUSH (23:51)
[2023-02-25] VITALS (49 sets, daily range): BP systolic 123–164; BP diastolic 46–82; PULSE 92–106; RESP 11–25; TEMP 36.2–36.6; O2SAT 91–100; BMI 43.2
[2023-02-25] MEDS: TUBING, BLOOD PLUM PUMP TUBING 1 EACH XX (01:52)
[2023-02-25] MEDS: HYDROmorphone HCL INJ (*CRX) 1 MG/ML SYR IV PUSH ×6 (03:04→21:08)
[2023-02-25 04:54] LABS: Basophils Absolute Auto 0.1 K/mm3 (0.0-0.1); Basophils Percent Auto 0.7 % (0.2-1.2); Eosinophils Absolute Auto 0.7 K/mm3 (0-0.3); Eosinophils Percent Auto 9.1 % (0-4.4); Hematocrit 34.7 % (37.0-47.0); Hemoglobin 10.5 g/dL (12.0-15.0); Immature Granulocyte Absolute 0.03 K/mm3 (0.00-0.031); Immature Granulocyte Percent A 0.4 % (0-0.5); Lymphocytes Absolute Auto 0.85 K/mm3 (0.9-3.2); Lymphocytes Percent Auto 11.8 % (18.3-44.2); Mean Corpuscular HGB Conc 30.3 g/dl (32-36); Mean Corpuscular Hemoglobin 26.6 pg (26-34); Mean Corpuscular Volume 88.1 fl (80-100); Mean Platelet Volume 9.4 fl (7.4-10.4); Monocytes Absolute Auto 0.8 K/mm3 (0.1-0.6); Monocytes Percent Auto 11.5 % (2.6-8.5); Neutrophils Absolute Auto 4.8 K/mm3 (1.3-6.7); Neutrophils Percent Auto 66.5 % (45.5-73.1); Platelet Count Result 472 k/mm3 (150-375); Red Blood Count 3.94 M/mm3 (4.2-5.4); Red Cell Distribution Width 17.1 % (11.5-14.5); White Blood Count 7.2 K/mm3 (4.5-10.0)
[2023-02-25 05:02] LABS: Alanine Aminotransferase 12 U/L (6-35); Albumin Level 2.9 g/dL (3.5-5.1); Alkaline Phosphatase 325 U/L (38-126); Anion Gap 9 mmol/L (8-16); Aspartate Amino Transferase 23 U/L (14-36); Bilirubin,Total 0.5 mg/dL (0.2-1.3); Blood Urea Nitrogen 21 mg/dL (7-17); Calcium 9.4 mg/dL (8.4-10.2); Carbon Dioxide 26 mmol/L (22-30); Chloride 97 mmol/L (98-107); Estimated CRCL calculation 17 ml/min; Estimated Glomerular Filt Rate 9; Glucose 106 mg/dL (65-110); Potassium 4.3 mmol/L (3.4-5.0); Sodium 132 mmol/L (137-145)
--- NOTE | 2023-02-25 07:44 | PC.NURSE ---
update given to kervin riggs wrentham
--- NOTE | 2023-02-25 09:25 | ADMGEN ---
This patient, Isamar Cantrell, was admitted to [facility] Surg Room 327-01. Patient/family oriented to hospital policies and general routines including ID bracelet, bed and alarms, visiting hours, pain management, procedures, bathroom and other care routines, personal items, smoking policy, room service/diet, and visiting hours. Information on how to activate the Rapid Response Team has been discussed. Patient/Family are encouraged to report perceived risks to care and to ask questions if they do not understand what they are told or what they should do.
--- NOTE | 2023-02-25 09:40 | PC.NURSE ---
Bruit and thrill present in left upper arm AV graft for dialysis.
[2023-02-25 11:01] LABS: Hemoglobin 10.6 g/dL (12.0-15.0)
[2023-02-25 11:30] LABS: Glucose Point of Care 107 mg/dl (65-105)
--- NOTE | 2023-02-25 11:30 | PM.CNNEP ---
Assessment and Plan Assessment and plan (1) ESRD (end stage renal disease): Code(s): N18.6 - End stage renal disease Status: Chronic Assessment and Plan: HD tomorrow continue M/W/F dialysis schedule while hospitalized follow electrolytes, volume status, and clearance (2) Intractable back pain: Code(s): M54.9 - Dorsalgia, unspecified Status: Acute Assessment and Plan: secondary to infection issues in thoracic spine and possibly right knee(?) CT of A/P was unrevealing for any acute process... further imaging (MRI) of back needed(?) pain control (3) Anemia: Code(s): D64.9 - Anemia, unspecified Status: Acute Assessment and Plan: low H/H by labs in ER s/p PRBC transfusion with improvement in H/H Epogen with HD guaiac positive and was on anticoagulation.... GI consulted (4) Osteomyelitis: Code(s): M86.9 - Osteomyelitis, unspecified Status: Acute Assessment and Plan: as noted by imaging at [facility] present in tips of right index and middle fingers noted T9 - T11 spine without epidural abscess but associated with septic facet arthritis on the left of T9-T10 s/p amputation of distal pahalnges of right index and middle fingers possible new issues given increased pain in the last 24 hours(?) already on 6 week course of IV antibiotics (5) Septic arthritis of knee, right: Code(s): M00.9 - Pyogenic arthritis, unspecified Status: Acute Assessment and Plan: as noted by results of right knee aspiration at [facility] s/p I & D for right knee x 2 by Orthopedic Surgery on antibiotic therapy already (6) Left upper extremity swelling: Code(s): M79.89 - Other specified soft tissue disorders Status: Acute Assessment and Plan: quite significant on exam unclear if this was addressed during recent hospitalization at [facility] doppler ultrasound negative for DVT (but already on anticoagulation) consider further imaging?? since this is her dialysis access arm, may need to consider fistulogram to assess for stenosis in her upper extremity veins.... (7) Type 1 diabetes mellitus: Code(s): E10.9 - Type 1 diabetes mellitus without complications Status: Chronic Assessment and Plan: normally on insulin pump at home follow accu-cheks glycemic control per hospitalists I will continue follow patient with you while she remains in rehab and make further recommendations as needed. Thank you for allowing me to participate in the care of this patient. History of Present Illness Reason for Consult Consult date: 02/26/23 Reason for consult: end stage renal disease Chief Complaint Chief complaint: ESRD on HD, Anemia, GI Bleed, Knee Pain, Back Pain History of Present Illness Narrative: The patient is a 52-year-old female with an extensive past medical history as outlined below Who was transferred to [facility] Emergency Room from [facility] for?complaints of acute/severe right lower back pain. Apparently, early yesterday afternoon, she had the sudden onset of right lower back/right flank pain. Initially, oral pain medications were keeping it stable but as the day progressed, the pain gradually worsened and continue to get more severe in intensity. Given the worsening of her symptoms, she was subsequently sent to the emergency room here at [facility] for a stat CT scan of the abdomen pelvis as well as further evaluation of her worsening pain. The pain seem to be associated with nausea that would come and go as well. Subsequent workup and evaluation in the emergency room demonstrated the patient to be hemodynamically stable but clearly and significant amount of pain. IV pain medications were given which seem to help with her pain but did not resolve it. Routine blood test demonstrated labs consistent with her known history of end-stage renal disease in [facility]
--- NOTE | 2023-02-25 11:30 | P.CONNP_ITS ---
Assessment and Plan Assessment and plan (1) ESRD (end stage renal disease): Code(s): N18.6 - End stage renal disease Status: Chronic Assessment and Plan: * HD tomorrow * continue M/W/F dialysis schedule while hospitalized * follow electrolytes, volume status, and clearance (2) Intractable back pain: Code(s): M54.9 - Dorsalgia, unspecified Status: Acute Assessment and Plan: * secondary to infection issues in thoracic spine and possibly right knee(?) * CT of A/P was unrevealing for any acute process... * further imaging (MRI) of back needed(?) * pain control (3) Anemia: Code(s): D64.9 - Anemia, unspecified Status: Acute Assessment and Plan: * low H/H by labs in ER * s/p PRBC transfusion with improvement in H/H * Epogen with HD * guaiac positive and was on anticoagulation.... * GI consulted (4) Osteomyelitis: Code(s): M86.9 - Osteomyelitis, unspecified Status: Acute Assessment and Plan: * as noted by imaging at [facility] * present in tips of right index and middle fingers * noted T9 - T11 spine without epidural abscess but associated with septic facet arthritis on the left of T9-T10 * s/p amputation of distal pahalnges of right index and middle fingers * possible new issues given increased pain in the last 24 hours(?) * already on 6 week course of IV antibiotics (5) Septic arthritis of knee, right: Code(s): M00.9 - Pyogenic arthritis, unspecified Status: Acute Assessment and Plan: * as noted by results of right knee aspiration at [facility] * s/p I & D for right knee x 2 by Orthopedic Surgery * on antibiotic therapy already (6) Left upper extremity swelling: Code(s): M79.89 - Other specified soft tissue disorders Status: Acute Assessment and Plan: * quite significant on exam * unclear if this was addressed during recent hospitalization at [facility] * doppler ultrasound negative for DVT (but already on anticoagulation) * consider further imaging?? * since this is her dialysis access arm, may need to consider fistulogram to assess for stenosis in her upper extremity veins.... (7) Type 1 diabetes mellitus: Code(s): E10.9 - Type 1 diabetes mellitus without complications Status: Chronic Assessment and Plan: * normally on insulin pump at home * follow accu-cheks * glycemic control per hospitalists I will continue follow patient with you while she remains in rehab and make further recommendations as needed. Thank you for allowing me to participate in the care of this patient. History of Present Illness Reason for Consult Consult date: 02/26/23 Reason for consult: end stage renal disease Chief Complaint Chief complaint: ESRD on HD, Anemia, GI Bleed, Knee Pain, Back Pain History of Present Illness Narrative: The patient is a 52-year-old female with an extensive past medical history as outlined below Who was transferred to [facility] Emergency Room from [facility] for?complaints of acute/severe right lower back pain. Apparently, early yesterday afternoon, she had the sudden onset of right lower back/right flank pain. Initially, oral pain medications were keeping it stable but as the day progressed, the pain gradually worsened and continue to get more severe in intensity. Given the worsening of her symptoms, she was subsequently sent to the emergency room here at [facility] for a stat CT scan of the abdomen pelvis as well as further evaluation of her worsening pain. Th
[2023-02-25] MEDS: HYDROmorphone HCL INJ (*CRX) 1 MG/ML SYR 0.5 MG IV PUSH (15:24)
[2023-02-25 16:40] LABS: Hematocrit 32.7 % (37.0-47.0); Hemoglobin 10.3 g/dL (12.0-15.0)
--- NOTE | 2023-02-25 17:21 | PM.IMHP ---
H&P: HPI History of Present Illness Date/Time: 02/25/23 17:21 Chief Complaint: Right flank pain Narrative: This is a 52-year-old female with past medical history significant for type 1 diabetes on an insulin pump, history of RCC status post right nephrectomy and 2014, end-stage renal disease on hemodialysis Sunday, right upper extremity AV graft which is complicated by steal syndrome with chronic pain who presented to the hospital with right flank pain with associated nausea. Patient was discharged from [facility] 5 days ago after a 4 week hospitalization for infection of the spine and right knee she is currently on IV antibiotics. She was sent to [facility] inpatient rehab for strength training and started to have an increase or worsening of her pain and nausea having her present to the hospital again. Workup in the hospital included a rectal exam shown a yellow stool however was guaiac positive which was found in the ED. Patient was placed on Protonix. GI was consulted. She was given 2 units of blood. Nephrology was also consulted for inpatient dialysis needs. Chest x-ray was negative. CT of the abdomen and pelvis was negative for any abnormality. Blood cultures were obtained and showing no growth on preliminary. EKG showing sinus rhythm with a rate of 89. She is on the list to transfer back to [facility] as she has been accepted by Dr. Gambino, however there are no beds available. Of note she recently had an admission at [facility] for syncope 01/14 to 01/19. She was also seen again on 01/23 for acute lower back pain and was found to have E faecalis bacteremia which was complicated by right knee septic arthritis and also with a possible septic clot of the AV graft. She was placed on Eliquis due to this clot in her AV graft. On 02/07 she also had dry gangrene of the right hand fingers and underwent amputation by plastics and she was sent home on 6 weeks of IV antibiotics with vancomycin. On examination today patient is alert oriented x3, lying in the bed. She is only reporting right flank pain which has been significantly worse than usual. She denies any known vomiting, diarrhea, abdominal pain, fever, chills, shortness of breath, chest pain. She has reported nausea. She does have notable swelling to her left arm greater than her right. Patient is tachycardic 104-106, she is afebrile, she is on room air, blood pressure has been stable and ranging 140/81 to 162/68. Labs today revealed WBC 7.2, hemoglobin 10.5, hematocrit 34.7, platelet count 472, sodium level 132, potassium 4.3, chloride 97, BUN 21, creatinine 5.2, blood sugars ranging 106-107, liver enzymes are normal, alk-phos 325. Serial H&Hs remains stable x3. We will await GI recommendations. Plan for HD tomorrow. Review of Systems Review of Systems: All systems reviewed & are unremarkable except as noted in HPI and below Constitutional: Constitutional: Reports as per HPI and Reports no additional constitutional complaints Eyes: Eyes: Reports as per HPI and Reports no additional eye complaints ENT: Reports system reviewed and no additional complaints, except as documented and Reports as per HPI Cardiovascular: Cardiovascular: Reports as per HPI and Reports no additional cardiovascular complaints Respiratory: Respiratory: Reports as per HPI and Reports no additional respiratory complaints Gastrointestinal: Gastrointestinal: Reports as per HPI and Reports no additional gastrointestinal complaints Genitourinary: Genitourinary: Reports no additional female genitourinary complaints and Reports as per HPI Musculoskeletal: Musculoskeletal: Reports no additional musculoskeletal complaints and Reports as per HPI Integumentary/Breasts: Skin/Breast: Reports system reviewed and no additional complaints, except as docu and Reports as per HPI Neurologic: Reports system reviewed and no additional complaints, except as documented and Reports as per HPI Psychiatric: Psyc
[2023-02-25 17:58] LABS: Iron 23 ug/dL (37-170)
[2023-02-25 18:08] LABS: Percent Iron Saturation 14 % (20-50)
[2023-02-25] MEDS: SEVELAMER CARBONATE 800 MG TABLET PO (18:22)
--- NOTE | 2023-02-25 18:31 | PHAR ---
PT'S HOME MED PAXIL CR 12.5 MG TABS VERIFIED BY PHARMACY
[2023-02-25 19:30] LABS: Vancomycin Random 25.1 ug/mL (10-20)
[2023-02-25] MEDS: oxyCODONE HCL (*CRX) 5 MG TAB IR PO (22:44)
[2023-02-25 23:58] LABS: Hematocrit 32.7 % (37.0-47.0); Hemoglobin 9.8 g/dL (12.0-15.0)
[2023-02-26] VITALS (20 sets, daily range): BP systolic 112–150; BP diastolic 29–84; PULSE 85–115; RESP 16–20; TEMP 35.8–37.6; O2SAT 96–99; BMI 43.2
[2023-02-26] MEDS: HYDROmorphone HCL INJ (*CRX) 1 MG/ML SYR IV PUSH ×6 (00:36→20:00)
[2023-02-26] MEDS: oxyCODONE HCL (*CRX) 5 MG TAB IR PO ×3 (03:09→12:15)
[2023-02-26 06:22] LABS: Basophils Absolute Auto 0.1 K/mm3 (0.0-0.1); Basophils Percent Auto 0.9 % (0.2-1.2); Eosinophils Absolute Auto 0.6 K/mm3 (0-0.3); Eosinophils Percent Auto 8.3 % (0-4.4); Hemoglobin 10.5 g/dL (12.0-15.0); Immature Granulocyte Absolute 0.03 K/mm3 (0.00-0.031); Immature Granulocyte Percent A 0.4 % (0-0.5); Lymphocytes Absolute Auto 0.61 K/mm3 (0.9-3.2); Lymphocytes Percent Auto 7.9 % (18.3-44.2); Mean Corpuscular HGB Conc 30.9 g/dl (32-36); Mean Corpuscular Hemoglobin 26.9 pg (26-34); Mean Platelet Volume 9.6 fl (7.4-10.4); Monocytes Absolute Auto 0.8 K/mm3 (0.1-0.6); Monocytes Percent Auto 10.8 % (2.6-8.5); Neutrophils Absolute Auto 5.5 K/mm3 (1.3-6.7); Neutrophils Percent Auto 71.7 % (45.5-73.1); Platelet Count Result 440 k/mm3 (150-375); Red Blood Count 3.91 M/mm3 (4.2-5.4); Red Cell Distribution Width 17.2 % (11.5-14.5); White Blood Count 7.7 K/mm3 (4.5-10.0)
[2023-02-26 06:24] LABS: INR 1.2
[2023-02-26 06:25] LABS: Partial Thromboplastin Time 37.6 SECONDS (22.3-36.8)
[2023-02-26 06:28] LABS: Alanine Aminotransferase 12 U/L (6-35); Albumin Level 2.8 g/dL (3.5-5.1); Alkaline Phosphatase 293 U/L (38-126); Anion Gap 5 mmol/L (8-16); Aspartate Amino Transferase 28 U/L (14-36); Bilirubin,Total 0.5 mg/dL (0.2-1.3); Blood Urea Nitrogen 28 mg/dL (7-17); Calcium 9.3 mg/dL (8.4-10.2); Carbon Dioxide 27 mmol/L (22-30); Chloride 98 mmol/L (98-107); Estimated CRCL calculation 14 ml/min; Estimated Glomerular Filt Rate 7; Glucose 115 mg/dL (65-110); Potassium 4.5 mmol/L (3.4-5.0); Sodium 130 mmol/L (137-145)
[2023-02-26 06:50] LABS: Vancomycin Random 24.2 ug/mL (10-20)
[2023-02-26 07:18] LABS: Hepatitis B Surface Antigen Negative (Negative)
[2023-02-26 07:39] LABS: Hepatitis B Surface Anti Res Positive
[2023-02-26 08:07] LABS: Glucose Point of Care 95 mg/dl (65-105)
[2023-02-26] MEDS: CINACALCET 30 MG TABLET PO (08:19)
[2023-02-26] MEDS: ATORVASTATIN 40 MG TABLET PO (08:19)
[2023-02-26] MEDS: CALCIUM ACETATE 667 MG TABLET PO (08:19)
[2023-02-26] MEDS: PANTOPRAZOLE 40 MG TABLET PO ×2 (08:19→17:33)
[2023-02-26] MEDS: SEVELAMER CARBONATE 800 MG TABLET PO ×3 (08:23→17:33)
[2023-02-26] MEDS: MIDODRINE HCL 10 MG TABLET PO ×3 (08:39→17:33)
--- NOTE | 2023-02-26 09:09 | PC.NURSE ---
Spoke with [facility] transfer center and provided an update on patient's current status and most recent set of vitals. Bed still not available, transfer center to call back when bed is available.
--- NOTE | 2023-02-26 13:19 | PC.NURSE ---
Pt to dialysis via bed at 1310.
--- NOTE | 2023-02-26 14:20 | P.PNIM_ITS ---
Progress Note: A&P Assessment and Plan (1) Back pain: Code(s): M54.9 - Dorsalgia, unspecified Status: Acute Assessment and Plan: 02/25/2023: * Patient reporting right flank pain that has increasingly gotten worse * Patient was recently had hospital admission for 4 weeks at [facility] where she was found to have E faecalis bacteremia which was complicated by right knee septic arthritis she underwent a few washout of the right knee on 01/26 and again on 02/04 with cultures that were still growing E faecalis. She was placed on IV antibiotics for 6 weeks and was sent to [facility] rehab shortly after that for strength training. * Continue pain medications * Continue IV antibiotics 02/26/23: * Tearful today with her flank pain. * Increased dose of Oxycodone to 10mg * Started lidocaine patch and tylenol 1 gm q8h (2) Bacteremia: Code(s): R78.81 - Bacteremia Status: Acute Assessment and Plan: 02/25/2023: * Patient was diagnosed with bacteremia at [facility] and had multiple blood cultures growing E. faecalis. * She is currently on IV antibiotics for the next 6 weeks and has been followed over at [facility] for this. 02/26/23: * Blood cultures x2 still showing no growth on preliminary * Patient will have HD today and Vancomycin IV as scheduled. (3) Acute GI bleeding: Code(s): K92.2 - Gastrointestinal hemorrhage, unspecified Status: Acute Assessment and Plan: 02/25/2023: * Patient was noted to have low H&H requiring 2 units of blood. * Patient has been on Eliquis for a clot to her AV graft, this is been placed on hold. * She was occult positive * GI was consulted 02/26/23: * H/H stable 10.5/34.0 * She was occult positive * received 2 units PRBC this admission * GI following (4) Anemia: Code(s): D64.9 - Anemia, unspecified Status: Acute Assessment and Plan: 02/25/2023: * This could be acute on chronic considering her end-stage renal disease * Guaiac-positive stool reported in the emergency room * See above plan of care 02/26/23: * No change to current treatment plan (5) End-stage renal disease on hemodialysis: Code(s): N18.6 - End stage renal disease; Z99.2 - Dependence on renal dialysis Status: Acute Assessment and Plan: 02/25/2023: * Patient on hemodialysis normally on a Sunday schedule * Nephrology following * BUN 21, creatinine 5.2, potassium 4.3, EGFR 9, creatinine clearance 17 * Plan for hemodialysis tomorrow 02/26/23: * BUN 28, creatinine 6.40 * Plan for HD today with Vancomycin IV dose * Nephrology following. (6) Gangrene: Code(s): I96 - Gangrene, not elsewhere classified Status: Acute Assessment and Plan: 02/25/2023: * Gangrenous fingers on the right hand which were amputated * Keep dressings clean dry and intact 02/26/23: * no change to current treatment plan (7) Obesity, morbid, BMI 40.0-49.9: Code(s): E66.01 - Morbid (severe) obesity due to excess calories Status: Acute Assessment and Plan: BMI 43.2 kg, 128.8 kg Time Spent With Patient Time with patient: 25 - 35 minutes Subjective Date/time seen: 02/26/23 14:20 Interval history: 01/27/23: This is a 52-year-old female with past medical history significant for type 1 diabetes on an insulin pump, history of RCC status post right nephrectomy and 2013, end-stage renal disease on hemodialysis Sunday, right upper extremity AV graft which is complicated by s
--- NOTE | 2023-02-26 14:20 | PM.IMPN ---
Progress Note: A&P Assessment and Plan (1) Back pain: Code(s): M54.9 - Dorsalgia, unspecified Status: Acute Assessment and Plan: 02/25/2023: Patient reporting right flank pain that has increasingly gotten worse Patient was recently had hospital admission for 4 weeks at [facility] where she was found to have E faecalis bacteremia which was complicated by right knee septic arthritis she underwent a few washout of the right knee on 01/26 and again on 02/04 with cultures that were still growing E faecalis. She was placed on IV antibiotics for 6 weeks and was sent to [facility] rehab shortly after that for strength training. Continue pain medications Continue IV antibiotics 02/26/23: Tearful today with her flank pain. Increased dose of Oxycodone to 10mg Started lidocaine patch and tylenol 1 gm q8h (2) Bacteremia: Code(s): R78.81 - Bacteremia Status: Acute Assessment and Plan: 02/25/2023: Patient was diagnosed with bacteremia at [facility] and had multiple blood cultures growing E. faecalis. She is currently on IV antibiotics for the next 6 weeks and has been followed over at [facility] for this. 02/26/23: Blood cultures x2 still showing no growth on preliminary Patient will have HD today and Vancomycin IV as scheduled. (3) Acute GI bleeding: Code(s): K92.2 - Gastrointestinal hemorrhage, unspecified Status: Acute Assessment and Plan: 02/25/2023: Patient was noted to have low H&H requiring 2 units of blood. Patient has been on Eliquis for a clot to her AV graft, this is been placed on hold. She was occult positive GI was consulted 02/26/23: H/H stable 10.5/34.0 She was occult positive received 2 units PRBC this admission GI following (4) Anemia: Code(s): D64.9 - Anemia, unspecified Status: Acute Assessment and Plan: 02/25/2023: This could be acute on chronic considering her end-stage renal disease Guaiac-positive stool reported in the emergency room See above plan of care 02/26/23: No change to current treatment plan (5) End-stage renal disease on hemodialysis: Code(s): N18.6 - End stage renal disease; Z99.2 - Dependence on renal dialysis Status: Acute Assessment and Plan: 02/25/2023: Patient on hemodialysis normally on a Sunday schedule Nephrology following BUN 21, creatinine 5.2, potassium 4.3, EGFR 9, creatinine clearance 17 Plan for hemodialysis tomorrow 02/26/23: BUN 28, creatinine 6.40 Plan for HD today with Vancomycin IV dose Nephrology following. (6) Gangrene: Code(s): I96 - Gangrene, not elsewhere classified Status: Acute Assessment and Plan: 02/25/2023: Gangrenous fingers on the right hand which were amputated Keep dressings clean dry and intact 02/26/23: no change to current treatment plan (7) Obesity, morbid, BMI 40.0-49.9: Code(s): E66.01 - Morbid (severe) obesity due to excess calories Status: Acute Assessment and Plan: BMI 43.2 kg, 128.8 kg Time Spent With Patient Time with patient: 25 - 35 minutes Subjective Date/time seen: 02/26/23 14:20 Interval history: 01/27/23: This is a 52-year-old female with past medical history significant for type 1 diabetes on an insulin pump, history of RCC status post right nephrectomy and 2014, end-stage renal disease on hemodialysis Sunday, right upper extremity AV graft which is complicated by steal syndrome with chronic pain who presented to the hospital with right flank pain with associated nausea.? Patient was discharged from [facility] 5 days ago after a 4 week hospitalization for infection of the spine and right knee she is currently on IV? antibiotics.? She was sent to [facility] inpatient rehab for strength training and started to have an increase or worsening of her pain and nausea having her present to the hospital again.? Workup in the hospital included a re
[2023-02-26] MEDS: oxyCODONE HCL (*CRX) 5 MG TAB IR 10 MG PO ×3 (15:38→23:42)
--- NOTE | 2023-02-26 16:02 | WPDGICN ---
Assessment and Plan Assessment and plan (1) Acute on chronic anemia: Code(s): D64.9 - Anemia, unspecified Status: Acute Assessment and Plan: probably is multifactorial she has esrd on dialysis, recent prolonged hospitalization with bacteremia among other complications occult blood in stool + we can perform colonoscopy and egd in am (2) Occult blood in stools: Code(s): R19.5 - Other fecal abnormalities Status: Acute Assessment and Plan: will do colonoscopy she is agreeable (3) End-stage renal disease on hemodialysis: Code(s): N18.6 - End stage renal disease; Z99.2 - Dependence on renal dialysis Status: Acute (4) Bacteremia: Code(s): R78.81 - Bacteremia Status: Acute Assessment and Plan: she has been on iv abx for few weeks now (5) Osteomyelitis: Code(s): M86.9 - Osteomyelitis, unspecified Status: Acute (6) Intractable back pain: Code(s): M54.9 - Dorsalgia, unspecified Status: Acute GI Consult Note Consult date/time: 02/26/23 16:02 Reason for consult: occult blood stool HPI: Isamar Cantrell is a 52 year old female with past medical history of type 1 DM on an insulin pump, Hx RCC s/p right nephrectomy in 2013, ESRD on MWF HD, RUE AVG complicated by steal syndrome with chronic pain/weakness/ischemic finger ulcers with multiple revisions who was recently admitted to [facility] for syncope (01/14 - 01/19). Recent prolonged hospitalization after had severe low back pain and was found to have E. Faecalis bacteremia c/b R knee septic arthritis, T9-T11 VOM/diskitis and possible septic clot of AVG. LISSETTE without endocarditis. R knee s/p washout on 01/26 and 02/04 with cultures +E faecalis. She was discharged from [place] 5 days ago after a 4 week hospitalization for sepsis/bacteremia as described and was sent to [place] inpatient rehab for strength training. Yesterday worsening back pain and nausea, taken to ER. She had rectal exam with yellow stool however was guaiac positive, hgb 7.3 from 8-10, given 2 units of blood and admitted as inpatient. She never had colonoscopy. Other labs WBC 7.2, hemoglobin 10.5, hematocrit 34.7, platelet count 472, sodium level 132, potassium 4.3, chloride 97, BUN 21, creatinine 5.2, blood sugars ranging 106-107, liver enzymes are normal. Review of Systems Constitutional: Comments: unable to walk Eyes: Eyes: Denies blurry vision ENT: Reports Normal hearing present Cardiovascular: Cardiovascular: Denies chest pain Respiratory: Respiratory: Denies cough Gastrointestinal: Gastrointestinal: Reports nausea Genitourinary: Comments: on dialysis Musculoskeletal: Musculoskeletal: Reports back pain Neurologic: Denies confusion Psychiatric: Psychiatric: Denies behavioral changes [facility] Past Medical History Medical History (Updated 02/26/23 @ 16:09 by Yfn Vyas MD) Acute on chronic anemia Anxiety and depression Chronic anticoagulation Chronic GERD Diabetic peripheral neuropathy End-stage renal disease on hemodialysis History of renal cell cancer Hyperlipidemia, unspecified Hypovitaminosis D Major depressive disorder, recurrent episode with anxious distress Mild nonproliferative diabetic retinopathy of both eyes associated with type 1 diabetes mellitus Morbid obesity Occult blood in stools Peripheral arterial disease Polyneuropathy Renovascular hypertension Secondary hyperparathyroidism Type 1 diabetes mellitus Surgical History Surgical History History of section History of right nephrectomy History of surgical amputation of finger of left hand Left 3rd finger. Family History Family History Father Family history of kidney disease Family history of diabetes mellitus in first degree relative Diabetes mellitus
--- NOTE | 2023-02-26 16:50 | PM.PNNEP ---
Progress Note: A&P Assessment and Plan (1) ESRD (end stage renal disease): Code(s): N18.6 - End stage renal disease Status: Chronic Assessment and Plan: HD today continue M/W/F dialysis schedule while hospitalized follow electrolytes, volume status, and clearance (2) Intractable back pain: Code(s): M54.9 - Dorsalgia, unspecified Status: Acute Assessment and Plan: secondary to infection issues in thoracic spine and possibly right knee(?) CT of A/P was unrevealing for any acute process... further imaging (MRI) of back needed(?) pain control (3) Anemia: Code(s): D64.9 - Anemia, unspecified Status: Acute Assessment and Plan: low H/H by labs in ER s/p PRBC transfusion with improvement in H/H Epogen with HD guaiac positive and was on anticoagulation.... GI following -- noted plans for EGD and colonoscopy tomorrow (4) Osteomyelitis: Code(s): M86.9 - Osteomyelitis, unspecified Status: Acute Assessment and Plan: as noted by imaging at [facility] present in tips of right index and middle fingers noted T9 - T11 spine without epidural abscess but associated with septic facet arthritis on the left of T9-T10 s/p amputation of distal pahalnges of right index and middle fingers already on 6 week course of IV antibiotics (Vancomycin) (5) Septic arthritis of knee, right: Code(s): M00.9 - Pyogenic arthritis, unspecified Status: Acute Assessment and Plan: as noted by results of right knee aspiration at [facility] s/p I & D for right knee x 2 by Orthopedic Surgery on antibiotic therapy already (6) Left upper extremity swelling: Code(s): M79.89 - Other specified soft tissue disorders Status: Acute Assessment and Plan: quite significant on exam unclear if this was addressed during recent hospitalization at [facility] doppler ultrasound negative for DVT - this was done at [facility] (but already on anticoagulation) consider further imaging?? since this is her dialysis access arm, may need to consider fistulogram to assess for stenosis in her upper extremity veins (but this would not be able to done here...) (7) Type 1 diabetes mellitus: Code(s): E10.9 - Type 1 diabetes mellitus without complications Status: Chronic Assessment and Plan: normally on insulin pump at home follow accu-cheks glycemic control per hospitalists Will continue to follow. Subjective Date/time seen: 02/26/23 16:50 Interval history: Follow-up for end stage renal disease on hemodialysis. Tolerating hemodialysis treatment at the time of my visit (seen on HD at 4:40PM); H/H relatively stable following PRBC transfusion -- seen by GI and oted plans for EGD/colonoscopy tomorrow; pain control seems to fluctuate but recent medication adjustments noted; no apparent distress currently. Exam Narrative: General: WD/WN female in NAD Heart: normal S1 and S2; no rub Lungs: clear anteriorly Abdomen: soft, nontender, nondistended, positive bowel sounds Extremities: no cyanosis or clubbing; trace edema; significant left arm swelling noted Skin: right hand/finger dressings in place Objective Data Vital Signs Vital Signs: Vital Signs Temp Pulse Resp BP Pulse Ox O2 Del Method 02/26/23 16:50 104 H 147/76 H 02/26/23 16:40 102 H 140/71 02/26/23 16:20 115 H 141/67 H 02/26/23 16:00 102 H 137/59 L 02/26/23 15:40 100 127/71 02/26/23 15:20 104 H 139/39 L 02/26/23 15:00 97 115/53 L 02/26/23 14:40 100 133/69 02/26/23 14:00 104 H 137/70 02/26/23 13:40 96 145/76 H 02/26/23 13:14 98.2 F 104 H 19 143/41 H 02/26/23 14:20 98 139/59 L 02/26/23 13:24 100 144/68 H 02/26/23 08:00 108 H 02/26/23 08:00 Room Air 02/26/23 06:00 97.9 F 110 H 20 150/84 H 99 02/26/23 04:00 107 H 02/26/23 00:00 104 H 12/1
--- NOTE | 2023-02-26 16:50 | P.PNNP_ITS ---
Progress Note: A&P Assessment and Plan (1) ESRD (end stage renal disease): Code(s): N18.6 - End stage renal disease Status: Chronic Assessment and Plan: * HD today * continue M/W/F dialysis schedule while hospitalized * follow electrolytes, volume status, and clearance (2) Intractable back pain: Code(s): M54.9 - Dorsalgia, unspecified Status: Acute Assessment and Plan: * secondary to infection issues in thoracic spine and possibly right knee(?) * CT of A/P was unrevealing for any acute process... * further imaging (MRI) of back needed(?) * pain control (3) Anemia: Code(s): D64.9 - Anemia, unspecified Status: Acute Assessment and Plan: * low H/H by labs in ER * s/p PRBC transfusion with improvement in H/H * Epogen with HD * guaiac positive and was on anticoagulation.... * GI following -- noted plans for EGD and colonoscopy tomorrow (4) Osteomyelitis: Code(s): M86.9 - Osteomyelitis, unspecified Status: Acute Assessment and Plan: * as noted by imaging at [facility] * present in tips of right index and middle fingers * noted T9 - T11 spine without epidural abscess but associated with septic facet arthritis on the left of T9-T10 * s/p amputation of distal pahalnges of right index and middle fingers * already on 6 week course of IV antibiotics (Vancomycin) (5) Septic arthritis of knee, right: Code(s): M00.9 - Pyogenic arthritis, unspecified Status: Acute Assessment and Plan: * as noted by results of right knee aspiration at [facility] * s/p I & D for right knee x 2 by Orthopedic Surgery * on antibiotic therapy already (6) Left upper extremity swelling: Code(s): M79.89 - Other specified soft tissue disorders Status: Acute Assessment and Plan: * quite significant on exam * unclear if this was addressed during recent hospitalization at [facility] * doppler ultrasound negative for DVT - this was done at [facility] (but already on anticoagulation) * consider further imaging?? * since this is her dialysis access arm, may need to consider fistulogram to assess for stenosis in her upper extremity veins (but this would not be able to done here...) (7) Type 1 diabetes mellitus: Code(s): E10.9 - Type 1 diabetes mellitus without complications Status: Chronic Assessment and Plan: * normally on insulin pump at home * follow accu-cheks * glycemic control per hospitalists Will continue to follow. Subjective Date/time seen: 02/26/23 16:50 Interval history: Follow-up for end stage renal disease on hemodialysis. Tolerating hemodialysis treatment at the time of my visit (seen on HD at 4:40PM); H/H relatively stable following PRBC transfusion -- seen by GI and oted plans for EGD/colonoscopy tomorrow; pain control seems to fluctuate but recent medication adjustments noted; no apparent distress currently. Exam Narrative: General: WD/WN female in NAD Heart: normal S1 and S2; no rub Lungs: clear anteriorly Abdomen: soft, nontender, nondistended, positive bowel sounds Extremities: no cyanosis or clubbing; trace edema; significant left arm swelling noted Skin: right hand/finger dressings in place Objective Data Vital Signs Vital Signs: Vital Signs Temp Pulse Resp BP Pulse Ox O2 Del Method 02/26/23 16:50 104 H 147/76 H 02/26/23
[2023-02-26 17:04] LABS: Glucose Point of Care 98 mg/dl (65-105)
[2023-02-26] MEDS: BISACODYL 5 MG TABLET EC 20 MG PO (17:33)
[2023-02-26] MEDS: VANCOMYCIN 750 MG/NS 250 ML 750 MG/250 ML BAG 250 MG IVPB (17:33)
[2023-02-26] MEDS: polyethylene glycoL 3350 238 GM BOTTLE PO (17:33)
--- NOTE | 2023-02-26 21:05 | PC.NURSE ---
This RN was made aware that the pt was nauseous. This RN called GI specialist and got orders for zofran PRN. Pt having a hard time with bowel prep, and tolerating it.
[2023-02-26] MEDS: ONDANSETRON INJ 4 MG/2 ML VIAL IV PUSH (21:10)
[2023-02-26 23:45] LABS: Glucose Point of Care 147 mg/dl (65-105)
[2023-02-27] VITALS (7 sets, daily range): BP systolic 115–169; BP diastolic 33–109; PULSE 104–115; RESP 15–22; TEMP 35.9–36.3; O2SAT 96–100
[2023-02-27] MEDS: HYDROmorphone HCL INJ (*CRX) 1 MG/ML SYR IV PUSH ×3 (02:22→17:01)
[2023-02-27] MEDS: ONDANSETRON INJ 4 MG/2 ML VIAL IV PUSH ×3 (02:22→17:10)
[2023-02-27] MEDS: MAGNESIUM CITRATE 300 ML BTL PO (02:25)
[2023-02-27] MEDS: oxyCODONE HCL (*CRX) 5 MG TAB IR 10 MG PO ×3 (05:20→21:55)
[2023-02-27] MEDS: LORazepam INJ (*CRX) 2 MG/ML VIAL 1 MG IV PUSH (06:25)
[2023-02-27 07:02] LABS: Estimated CRCL calculation 20 ml/min; Estimated Glomerular Filt Rate 11
[2023-02-27 09:23] LABS: Glucose Point of Care 194 mg/dl (65-105)
--- NOTE | 2023-02-27 09:39 | P.PNIM_ITS ---
Progress Note: A&P Assessment and Plan (1) Back pain: Code(s): M54.9 - Dorsalgia, unspecified Status: Acute Assessment and Plan: 02/25/2023: * Patient reporting right flank pain that has increasingly gotten worse * Patient was recently had hospital admission for 4 weeks at [place] where she was found to have E faecalis bacteremia which was complicated by right knee septic arthritis she underwent a few washout of the right knee on 01/26 and again on 02/04 with cultures that were still growing E faecalis. She was placed on IV antibiotics for 6 weeks and was sent to [facility] shortly after that for strength training. * Continue pain medications * Continue IV antibiotics 02/26/23: * Tearful today with her flank pain. * Increased dose of Oxycodone to 10mg * Started lidocaine patch and tylenol 1 gm q8h 02/27/23: * (2) Bacteremia: Code(s): R78.81 - Bacteremia Status: Acute Assessment and Plan: 02/25/2023: * Patient was diagnosed with bacteremia at [facility] and had multiple blood cultures growing E. faecalis. * She is currently on IV antibiotics for the next 6 weeks and has been followed over at [facility] for this. 02/26/23: * Blood cultures x2 still showing no growth on preliminary * Patient will have HD today and Vancomycin IV as scheduled. 02/27/23: * Blood cultures x2 still showing no growth on preliminary which is day 3 * Continue with vancomycin IV as scheduled on dialysis days up until the 30th and then transition to amoxicillin (3) Acute GI bleeding: Code(s): K92.2 - Gastrointestinal hemorrhage, unspecified Status: Acute Assessment and Plan: 02/25/2023: * Patient was noted to have low H&H requiring 2 units of blood. * Patient has been on Eliquis for a clot to her AV graft, this is been placed on hold. * She was occult positive * GI was consulted 02/26/23: * H/H stable 10.5/34.0 * She was occult positive * received 2 units PRBC this admission * GI following 02/27/23: * H&H remained stable at 11.1 and 36.5 * GI following * EGD and colonoscopy was performed. EGD was normal. Coloscopy revealed a 4mm polyp which was resected and sent for biopsy. There were a few internal hemorrhoids in the rectum, however none that were bleeding. * Will get BUE US venous dopplers to assess for DVT, if she still has DVT in her AVG may consider heparin infusion versus eliquis due to her recent GI bleed and blood transfusions. * Patient still awaiting transfer to [place]. (4) Anemia: Code(s): D64.9 - Anemia, unspecified Status: Acute Assessment and Plan: 02/25/2023: * This could be acute on chronic considering her end-stage renal disease * Guaiac-positive stool reported in the emergency room * See above plan of care 02/26/23: * No change to current treatment plan (5) End-stage renal disease on hemodialysis: Code(s): N18.6 - End stage renal disease; Z99.2 - Dependence on renal dialysis Status: Acute Assessment and Plan: 02/25/2023: * Patient on hemodialysis normally on a Sunday schedule * Nephrology following * BUN 21, creatinine 5.2, potassium 4.3, EGFR 9, creatinine clearance 17 * Plan for hemodialysis tomorrow 02/26/23: * BUN 28, creatinine 6.40 * Plan for HD today with Vancomycin IV dose * Nephrology following. 02/27/23: * Nephrology following * Patient had dialysis yesterday with a vancomycin IV dose, she had 3.3 L removed * BUN today is 14, creatinine 4.1, sodium 134, potassium 4
--- NOTE | 2023-02-27 09:39 | PM.IMPN ---
Progress Note: A&P Assessment and Plan (1) Back pain: Code(s): M54.9 - Dorsalgia, unspecified Status: Acute Assessment and Plan: 02/25/2023: Patient reporting right flank pain that has increasingly gotten worse Patient was recently had hospital admission for 4 weeks at [place] where she was found to have E faecalis bacteremia which was complicated by right knee septic arthritis she underwent a few washout of the right knee on 01/26 and again on 02/04 with cultures that were still growing E faecalis. She was placed on IV antibiotics for 6 weeks and was sent to [place] [facility] shortly after that for strength training. Continue pain medications Continue IV antibiotics 02/26/23: Tearful today with her flank pain. Increased dose of Oxycodone to 10mg Started lidocaine patch and tylenol 1 gm q8h 02/27/23: (2) Bacteremia: Code(s): R78.81 - Bacteremia Status: Acute Assessment and Plan: 02/25/2023: Patient was diagnosed with bacteremia at [facility] and had multiple blood cultures growing E. faecalis. She is currently on IV antibiotics for the next 6 weeks and has been followed over at [facility] for this. 02/26/23: Blood cultures x2 still showing no growth on preliminary Patient will have HD today and Vancomycin IV as scheduled. 02/27/23: Blood cultures x2 still showing no growth on preliminary which is day 3 Continue with vancomycin IV as scheduled on dialysis days up until the 30th and then transition to amoxicillin (3) Acute GI bleeding: Code(s): K92.2 - Gastrointestinal hemorrhage, unspecified Status: Acute Assessment and Plan: 02/25/2023: Patient was noted to have low H&H requiring 2 units of blood. Patient has been on Eliquis for a clot to her AV graft, this is been placed on hold. She was occult positive GI was consulted 02/26/23: H/H stable 10.5/34.0 She was occult positive received 2 units PRBC this admission GI following 02/27/23: H&H remained stable at 11.1 and 36.5 GI following EGD and colonoscopy was performed. EGD was normal. Coloscopy revealed a 4mm polyp which was resected and sent for biopsy. There were a few internal hemorrhoids in the rectum, however none that were bleeding. Will get BUE US venous dopplers to assess for DVT, if she still has DVT in her AVG may consider heparin infusion versus eliquis due to her recent GI bleed and blood transfusions. Patient still awaiting transfer to [place]. (4) Anemia: Code(s): D64.9 - Anemia, unspecified Status: Acute Assessment and Plan: 02/25/2023: This could be acute on chronic considering her end-stage renal disease Guaiac-positive stool reported in the emergency room See above plan of care 02/26/23: No change to current treatment plan (5) End-stage renal disease on hemodialysis: Code(s): N18.6 - End stage renal disease; Z99.2 - Dependence on renal dialysis Status: Acute Assessment and Plan: 02/25/2023: Patient on hemodialysis normally on a Sunday schedule Nephrology following BUN 21, creatinine 5.2, potassium 4.3, EGFR 9, creatinine clearance 17 Plan for hemodialysis tomorrow 02/26/23: BUN 28, creatinine 6.40 Plan for HD today with Vancomycin IV dose Nephrology following. 02/27/23: Nephrology following Patient had dialysis yesterday with a vancomycin IV dose, she had 3.3 L removed BUN today is 14, creatinine 4.1, sodium 134, potassium 4.5 (6) Gangrene: Code(s): I96 - Gangrene, not elsewhere classified Status: Acute Assessment and Plan: 02/25/2023: Gangrenous fingers on the right hand which were amputated Keep dressings clean dry and intact 02/26/23: no change to current treatment plan (7) Obesity, morbid, BMI 40.0-49.9: Code(s): E66.01 - Morbid (severe) obesity due to excess calories Status: Acute Assessment and Plan: BMI 43.2 kg, 128.8 kg Time Sp
[2023-02-27 09:55] LABS: Basophils Absolute Auto 0.1 K/mm3 (0.0-0.1); Basophils Percent Auto 0.9 % (0.2-1.2); Eosinophils Absolute Auto 0.4 K/mm3 (0-0.3); Hematocrit 36.5 % (37.0-47.0); Hemoglobin 11.1 g/dL (12.0-15.0); Immature Granulocyte Absolute 0.04 K/mm3 (0.00-0.031); Immature Granulocyte Percent A 0.5 % (0-0.5); Lymphocytes Absolute Auto 0.49 K/mm3 (0.9-3.2); Mean Corpuscular HGB Conc 30.4 g/dl (32-36); Mean Corpuscular Hemoglobin 26.9 pg (26-34); Mean Corpuscular Volume 88.4 fl (80-100); Monocytes Absolute Auto 0.8 K/mm3 (0.1-0.6); Neutrophils Absolute Auto 6.4 K/mm3 (1.3-6.7); Neutrophils Percent Auto 77.6 % (45.5-73.1); Platelet Count Result 475 k/mm3 (150-375); Red Blood Count 4.13 M/mm3 (4.2-5.4); Red Cell Distribution Width 17.2 % (11.5-14.5); White Blood Count 8.2 K/mm3 (4.5-10.0)
[2023-02-27 10:12] LABS: Alanine Aminotransferase 18 U/L (6-35); Albumin Level 3.1 g/dL (3.5-5.1); Alkaline Phosphatase 323 U/L (38-126); Anion Gap 11 mmol/L (8-16); Aspartate Amino Transferase 27 U/L (14-36); Bilirubin,Total 0.5 mg/dL (0.2-1.3); Blood Urea Nitrogen 14 mg/dL (7-17); Calcium 9.5 mg/dL (8.4-10.2); Carbon Dioxide 24 mmol/L (22-30); Chloride 99 mmol/L (98-107); Estimated CRCL calculation 20 ml/min; Estimated Glomerular Filt Rate 11; Glucose 189 mg/dL (65-110); Potassium 4.5 mmol/L (3.4-5.0); Sodium 134 mmol/L (137-145)
[2023-02-27] MEDS: LIDOCAINE 5% PATCH 1 PATCH TRANSDERM (10:28)
[2023-02-27] MEDS: PANTOPRAZOLE 40 MG TABLET PO ×2 (10:30→17:05)
[2023-02-27 11:30] LABS: Glucose Point of Care 152 mg/dl (65-105)
--- NOTE | 2023-02-27 11:30 | P.PNNP_ITS ---
Progress Note: A&P Assessment and Plan (1) ESRD (end stage renal disease): Code(s): N18.6 - End stage renal disease Status: Chronic Assessment and Plan: * HD tomorrow * continue M/W/F dialysis schedule while hospitalized * follow electrolytes, volume status, and clearance (2) Intractable back pain: Code(s): M54.9 - Dorsalgia, unspecified Status: Acute Assessment and Plan: * secondary to infection issues in thoracic spine and possibly right knee(?) * CT of A/P was unrevealing for any acute process... * further imaging (MRI) of back needed(?) * pain control (3) Anemia: Code(s): D64.9 - Anemia, unspecified Status: Acute Assessment and Plan: * low H/H by labs in ER * s/p PRBC transfusion with improvement in H/H * Epogen with HD * guaiac positive and was on anticoagulation.... * GI following -- noted plans for EGD and colonoscopy today (4) Osteomyelitis: Code(s): M86.9 - Osteomyelitis, unspecified Status: Acute Assessment and Plan: * as noted by imaging at [facility] * present in tips of right index and middle fingers * noted T9 - T11 spine without epidural abscess but associated with septic facet arthritis on the left of T9-T10 * s/p amputation of distal pahalnges of right index and middle fingers * already on 6 week course of IV antibiotics (Vancomycin) (5) Septic arthritis of knee, right: Code(s): M00.9 - Pyogenic arthritis, unspecified Status: Acute Assessment and Plan: * as noted by results of right knee aspiration at [facility] * s/p I & D for right knee x 2 by Orthopedic Surgery * on antibiotic therapy already (6) Left upper extremity swelling: Code(s): M79.89 - Other specified soft tissue disorders Status: Acute Assessment and Plan: * quite significant on exam * unclear if this was addressed during recent hospitalization at [facility] * doppler ultrasound negative for DVT - this was done at [facility] (but already on anticoagulation) * consider further imaging?? * since this is her dialysis access arm, may need to consider fistulogram to assess for stenosis in her upper extremity veins (but this would not be able to done here...) (7) Type 1 diabetes mellitus: Code(s): E10.9 - Type 1 diabetes mellitus without complications Status: Chronic Assessment and Plan: * normally on insulin pump at home * follow accu-cheks * glycemic control per hospitalists Will continue to follow. Subjective Date/time seen: 02/27/23 11:30 Interval history: Follow-up for end stage renal disease on hemodialysis. Continues to have back pain but pain medication do seem to help control this but any type of movement from the supine position exacerbates her pain; tolerated bowel prep yesterday with subsequent plan for EGD and colonoscopy later today. Exam Narrative: General: WD/WN female in NAD Heart: normal S1 and S2; no rub Lungs: clear anteriorly Abdomen: soft, nontender, nondistended, positive bowel sounds Extremities: no cyanosis or clubbing; trace - 1+ edema; significant left arm swelling noted Skin: right hand/finger dressings in place Objective Data Vital Signs Vital Signs: Vital Signs Temp Pulse Resp BP Pulse Ox 02/27/23 06:00 97.1 F L 115 H 22 H 169/94 H 100 02/26/23 22:00 96.5 F L 107 H 20 112/58 L 97
--- NOTE | 2023-02-27 11:30 | PM.PNNEP ---
Progress Note: A&P Assessment and Plan (1) ESRD (end stage renal disease): Code(s): N18.6 - End stage renal disease Status: Chronic Assessment and Plan: HD tomorrow continue M/W/F dialysis schedule while hospitalized follow electrolytes, volume status, and clearance (2) Intractable back pain: Code(s): M54.9 - Dorsalgia, unspecified Status: Acute Assessment and Plan: secondary to infection issues in thoracic spine and possibly right knee(?) CT of A/P was unrevealing for any acute process... further imaging (MRI) of back needed(?) pain control (3) Anemia: Code(s): D64.9 - Anemia, unspecified Status: Acute Assessment and Plan: low H/H by labs in ER s/p PRBC transfusion with improvement in H/H Epogen with HD guaiac positive and was on anticoagulation.... GI following -- noted plans for EGD and colonoscopy today (4) Osteomyelitis: Code(s): M86.9 - Osteomyelitis, unspecified Status: Acute Assessment and Plan: as noted by imaging at [facility] present in tips of right index and middle fingers noted T9 - T11 spine without epidural abscess but associated with septic facet arthritis on the left of T9-T10 s/p amputation of distal pahalnges of right index and middle fingers already on 6 week course of IV antibiotics (Vancomycin) (5) Septic arthritis of knee, right: Code(s): M00.9 - Pyogenic arthritis, unspecified Status: Acute Assessment and Plan: as noted by results of right knee aspiration at [facility] s/p I & D for right knee x 2 by Orthopedic Surgery on antibiotic therapy already (6) Left upper extremity swelling: Code(s): M79.89 - Other specified soft tissue disorders Status: Acute Assessment and Plan: quite significant on exam unclear if this was addressed during recent hospitalization at [facility] doppler ultrasound negative for DVT - this was done at [facility] (but already on anticoagulation) consider further imaging?? since this is her dialysis access arm, may need to consider fistulogram to assess for stenosis in her upper extremity veins (but this would not be able to done here...) (7) Type 1 diabetes mellitus: Code(s): E10.9 - Type 1 diabetes mellitus without complications Status: Chronic Assessment and Plan: normally on insulin pump at home follow accu-cheks glycemic control per hospitalists Will continue to follow. Subjective Date/time seen: 02/27/23 11:30 Interval history: Follow-up for end stage renal disease on hemodialysis. Continues to have back pain but pain medication do seem to help control this but any type of movement from the supine position exacerbates her pain; tolerated bowel prep yesterday with subsequent plan for EGD and colonoscopy later today. Exam Narrative: General: WD/WN female in NAD Heart: normal S1 and S2; no rub Lungs: clear anteriorly Abdomen: soft, nontender, nondistended, positive bowel sounds Extremities: no cyanosis or clubbing; trace - 1+ edema; significant left arm swelling noted Skin: right hand/finger dressings in place Objective Data Vital Signs Vital Signs: Vital Signs Temp Pulse Resp BP Pulse Ox 02/27/23 06:00 97.1 F L 115 H 22 H 169/94 H 100 02/26/23 22:00 96.5 F L 107 H 20 112/58 L 97 02/26/23 14:00 97.7 F 85 20 125/73 96 02/26/23 16:59 97.7 F 102 H 16 145/29 H 02/26/23 16:50 104 H 147/76 H 02/26/23 16:40 102 H 140/71 02/26/23 16:20 115 H 141/67 H 02/26/23 16:00 102 H 137/59 L 02/26/23 15:40 100 127/71 02/26/23 15:20 104 H 139/39 L 02/26/23 15:00 97 115/53 L 02/26/23 14:40 100 133/69 02/26/23 14:00 104 H 137/70 02/26/23 13:40 96 145/76 H 02/26/23 13:14 98.2 F 104 H 19 143/41 H 02/26/23 14:20 98 139/59 L 02/26/23 13:24 100 144/68 H Intake/Output Intake/Output: Intake & Output
--- NOTE | 2023-02-27 12:41 | PC.NURSE ---
To colonoscopy and egd. Left at 1240 and gave report to Hakeem.
[2023-02-27 12:52] LABS: Glucose Point of Care 119 mg/dl (65-105)
[2023-02-27] MEDS: LACTATED RINGERS 1,000 ML 150 ML IV CONT (12:59)
--- NOTE | 2023-02-27 12:59 | WPDANESEPPF ---
Anes - Initial Pre Proc Eval Procedure: Operation Date: 02/27/23 13:30 Proposed Procedures p Esophagogastroduodenoscopy & Colonoscopy - Yfn Vyas MD Date/Time: 02/27/23 12:59 Surgeon: Trisha Pinto DO Pre Op Diagnosis: ESRD on HD, Anemia, GI Bleed, Knee Pain, Back Pain Patient Data Age: 52 Gender: F Height: 1.73 m Weight: 120.1 kg Last Vital Signs Temp 36.3 C L 02/27/23 12:55 Pulse 107 H 02/27/23 12:55 Resp 22 H 02/27/23 12:55 BP 159/61 H 02/27/23 12:55 Pulse Ox 96 02/27/23 12:55 O2 Del Method Room Air 02/27/23 12:55 Allergies Allergy/AdvReac Type Severity Reaction Status Date / Time No Known Allergies Allergy Unknown Verified 02/27/23 12:53 Home Medications Medication Instructions Recorded Confirmed Type apixaban 5 mg tablet (Eliquis) 5 mg PO Q12H 03/28/19 02/25/23 History midodrine 5 mg tablet 10 mg PO TID 03/22/21 02/25/23 History paroxetine HCl 12.5 mg 12.5 mg PO QAM 01/12/23 02/25/23 History tablet,extended release 24 hr atorvastatin 40 mg tablet 40 mg PO DAILY 01/21/23 02/25/23 History insulin aspart U-100 100 unit/mL 0.5 unit continuous subcutaneous 01/21/23 02/25/23 History subcutaneous solution (Novolog infusion DAILY U-100 Insulin aspart) sevelamer carbonate 800 mg tablet 800 mg PO AC 01/21/23 02/25/23 History (Renvela) aspirin 325 mg tablet,delayed 325 mg PO DAILY 02/20/23 02/25/23 History release calcium acetate(phosphat bind) 667 667 mg PO DAILY 02/20/23 02/25/23 History mg capsule cinacalcet 30 mg tablet 30 mg PO DAILY 02/20/23 02/25/23 History ergocalciferol (vitamin D2) 50,000 50,000 unit PO WEEKLY 02/20/23 02/25/23 History unit tablet omeprazole 20 mg capsule,delayed 20 mg PO BID 02/20/23 02/25/23 History release oxycodone 5 mg tablet 5 mg PO Q4H PRN Pain rated 6 or 02/20/23 02/25/23 History greater vancomycin 1,000 mg intravenous 1 g IV 3XW 02/20/23 02/25/23 History injection Laboratory Tests 02/26/23 02/26/23 02/27/23 17:00 23:42 06:21 WBC 8.2 K/mm3 (4.5-10.0) RBC 4.13 L M/mm3 (4.2-5.4) Hgb 11.1 L g/dL (12.0-15.0) Hct 36.5 L % (37.0-47.0) MCV 88.4 fl (80-100) MCH 26.9 pg (26-34) MCHC 30.4 L g/dl (32-36) RDW 17.2 H % (11.5-14.5) Plt Count 475 H k/mm3 (150-375) MPV 10.0 fl (7.4-10.4) Immature Gran % (Auto) 0.5 % (0-0.5) Neut % (Auto) 77.6 H % (45.5-73.1) Lymph % (Auto) 6.0 L % (18.3-44.2) Stearns % (Auto) 10.0 H % (2.6-8.5) Eos % (Auto) 5.0 H % (0-4.4) Baso % (Auto) 0.9 % (0.2-1.2) Lymph # (Auto) 0.49 L K/mm3 (0.9-3.2) Stearns # (Auto) 0.8 H K/mm3 (0.1-0.6) Eos # (Auto) 0.4 H K/mm3 (0-0.3) Baso # (Auto) 0.1 K/mm3 (0.0-0.1) Abs Immat Gran (auto) 0.04 H K/mm3 (0.00-0.031) Absolute Neuts (auto) 6.4 K/mm3 (1.3-6.7) Absolute Nucleated RBC 0.0 K/mm3 (0.0-0.012) Nucleated RBC % 0.0 % (0.0-0.2) Sodium 134 L mmol/L (137-145) Potassium 4.5 mmol/L (3.4-5.0) Chloride 99 mmol/L (98-107) Carbon Dioxide 24 mmol/L (22-30) Anion Gap 11 mmol/L (8-16) BUN 14 D mg/dL (7-17) Creatinine 4.10 H mg/dL (0.7-1.0) Estim Creat Clear Calc 20 ml/min Estimated GFR 11 L (59 - ) Glucose 189 H mg/dL (65-110) POC Capillary Glucose 98 mg/dl 147 H mg/dl (65-105) (65-105) Calcium 9.5 mg/dL (8.4-10.2) Total Bilirubin 0.5 mg/dL (0.2-1.3) AST 27 U/L (14-36) ALT 18 U/L (6-35) Alkaline Phosphatase 323 H U/L (38-126) Total Protein 6.0 L g/dL (6.3-8.2) Albumin 3.1 L g/dL (3.5-5.1) 02/27/23 02/27/23 02/27/23 06:37 07:52 11:07 WBC RB
[2023-02-27] MEDS: SODIUM CHLORIDE 0.9% IV 500 ML 10 ML IV CONT (13:30)
--- NOTE | 2023-02-27 13:43 | SUR.OPER ---
EGD: [id number] COLON: Start 1334
--- NOTE | 2023-02-27 14:04 | SUR.OPER ---
Sigmoid polyp was not retrieved. Dr. Maciel robledo.
--- NOTE | 2023-02-27 14:06 | PC.NURSE ---
Addendum entered by Lilliam Ernst RN 02/27/23 14:13: Report from Yadira alstno. Original Note: This nurse got report from Blanche in GI lab.
[2023-02-27 16:33] LABS: Glucose Point of Care 125 mg/dl (65-105)
[2023-02-27] MEDS: MIDODRINE HCL 10 MG TABLET PO (17:01)
[2023-02-27 20:26] LABS: Glucose Point of Care 164 mg/dl (65-105)
[2023-02-28] VITALS (18 sets, daily range): BP systolic 125–165; BP diastolic 20–83; PULSE 63–110; RESP 16–20; TEMP 36.3–37.4; O2SAT 91–100
[2023-02-28] MEDS: HYDROmorphone HCL INJ (*CRX) 1 MG/ML SYR IV PUSH ×6 (01:46→18:54)
[2023-02-28] MEDS: oxyCODONE HCL (*CRX) 5 MG TAB IR 10 MG PO ×4 (03:45→17:39)
[2023-02-28] MEDS: ONDANSETRON INJ 4 MG/2 ML VIAL IV PUSH (03:46)
[2023-02-28 05:49] LABS: Basophils Absolute Auto 0.1 K/mm3 (0.0-0.1); Eosinophils Absolute Auto 0.4 K/mm3 (0-0.3); Hematocrit 35.5 % (37.0-47.0); Hemoglobin 10.3 g/dL (12.0-15.0); Immature Granulocyte Absolute 0.03 K/mm3 (0.00-0.031); Immature Granulocyte Percent A 0.4 % (0-0.5); Lymphocytes Absolute Auto 0.83 K/mm3 (0.9-3.2); Lymphocytes Percent Auto 11.6 % (18.3-44.2); Mean Corpuscular Hemoglobin 26.4 pg (26-34); Mean Platelet Volume 9.5 fl (7.4-10.4); Monocytes Absolute Auto 1.1 K/mm3 (0.1-0.6); Monocytes Percent Auto 15.4 % (2.6-8.5); Neutrophils Absolute Auto 4.7 K/mm3 (1.3-6.7); Neutrophils Percent Auto 65.6 % (45.5-73.1); Platelet Count Result 396 k/mm3 (150-375); Red Cell Distribution Width 17.3 % (11.5-14.5); White Blood Count 7.2 K/mm3 (4.5-10.0)
[2023-02-28 06:31] LABS: Alanine Aminotransferase 15 U/L (6-35); Albumin Level 2.7 g/dL (3.5-5.1); Alkaline Phosphatase 267 U/L (38-126); Anion Gap 6 mmol/L (8-16); Aspartate Amino Transferase 24 U/L (14-36); Bilirubin,Total 0.5 mg/dL (0.2-1.3); Blood Urea Nitrogen 18 mg/dL (7-17); Calcium 9.5 mg/dL (8.4-10.2); Carbon Dioxide 27 mmol/L (22-30); Chloride 99 mmol/L (98-107); Estimated CRCL calculation 16 ml/min; Estimated Glomerular Filt Rate 9; Glucose 111 mg/dL (65-110); Sodium 132 mmol/L (137-145); Vancomycin Random 24.1 ug/mL (10-20)
[2023-02-28 08:03] LABS: Glucose Point of Care 93 mg/dl (65-105)
[2023-02-28] MEDS: EPOETIN ALFA-EPBX 10,000 UNITS/ML VIAL 10000 UNITS IV PUSH (10:43)
[2023-02-28] MEDS: SODIUM CHLORIDE 0.9% IV 1,000 ML 999 ML IV CONT (10:44)
[2023-02-28 11:55] LABS: Glucose Point of Care 128 mg/dl (65-105)
--- NOTE | 2023-02-28 12:30 | P.PNNP_ITS ---
Progress Note: A&P Assessment and Plan (1) ESRD (end stage renal disease): Code(s): N18.6 - End stage renal disease Status: Chronic Assessment and Plan: * HD today * continue M/W/F dialysis schedule while hospitalized * follow electrolytes, volume status, and clearance (2) Intractable back pain: Code(s): M54.9 - Dorsalgia, unspecified Status: Acute Assessment and Plan: * secondary to infection issues in thoracic spine and possibly right knee(?) * CT of A/P was unrevealing for any acute process... * further imaging (MRI) of back needed(?) * pain control (3) Anemia: Code(s): D64.9 - Anemia, unspecified Status: Acute Assessment and Plan: * low H/H by labs in ER on admission * s/p PRBC transfusion with improvement in H/H * Epogen with HD * guaiac positive and was on anticoagulation.... * GI following: * EGD (on 02/27): unrevealing; no evidence of bleeing ulcers * colonoscopy (on 02/27): internal hemrrhoids and one polyp - no active bleeding lesions * follow trend of H/H (4) Osteomyelitis: Code(s): M86.9 - Osteomyelitis, unspecified Status: Acute Assessment and Plan: * as noted by imaging at [facility] * present in tips of right index and middle fingers * noted T9 - T11 spine without epidural abscess but associated with septic facet arthritis on the left of T9-T10 * s/p amputation of distal pahalnges of right index and middle fingers * already on 6 week course of IV antibiotics (Vancomycin) (5) Septic arthritis of knee, right: Code(s): M00.9 - Pyogenic arthritis, unspecified Status: Acute Assessment and Plan: * as noted by results of right knee aspiration at [facility] * s/p I & D for right knee x 2 by Orthopedic Surgery * on antibiotic therapy already (6) Left upper extremity swelling: Code(s): M79.89 - Other specified soft tissue disorders Status: Acute Assessment and Plan: * quite significant on exam * unclear if this was addressed during recent hospitalization at [facility] * doppler ultrasound negative for DVT - this was done at [facility] (but already on anticoagulation) * consider further imaging?? * since this is her dialysis access arm, may need to consider fistulogram to assess for stenosis in her upper extremity veins (but this would not be able to done here...) (7) Type 1 diabetes mellitus: Code(s): E10.9 - Type 1 diabetes mellitus without complications Status: Chronic Assessment and Plan: * normally on insulin pump at home * follow accu-cheks * glycemic control per hospitalists Will continue to follow. Subjective Date/time seen: 02/28/23 12:30 Interval history: Follow-up for end stage renal disease on hemodialysis. Tolerating hemodialysis treatment at the tome of my visit (seen on HD at 12:20PM); s/p EGD and colonoscopy yesterday with results noted; continue to have back pain and having difficulty eating as she is unable to sit up. Exam Narrative: General: WD/WN female in NAD Heart: normal S1 and S2; no rub Lungs: clear anteriorly Abdomen: soft, nontender, nondistended, positive bowel sounds Extremities: no cyanosis or clubbing; trace - 1+ edema; significant left arm swelling noted Skin: right hand/finger dressings in place Objective Data Vital Signs Vital Signs: Vital Signs Temp Pulse Resp BP Puls
--- NOTE | 2023-02-28 12:30 | PM.PNNEP ---
Progress Note: A&P Assessment and Plan (1) ESRD (end stage renal disease): Code(s): N18.6 - End stage renal disease Status: Chronic Assessment and Plan: HD today continue M/W/F dialysis schedule while hospitalized follow electrolytes, volume status, and clearance (2) Intractable back pain: Code(s): M54.9 - Dorsalgia, unspecified Status: Acute Assessment and Plan: secondary to infection issues in thoracic spine and possibly right knee(?) CT of A/P was unrevealing for any acute process... further imaging (MRI) of back needed(?) pain control (3) Anemia: Code(s): D64.9 - Anemia, unspecified Status: Acute Assessment and Plan: low H/H by labs in ER on admission s/p PRBC transfusion with improvement in H/H Epogen with HD guaiac positive and was on anticoagulation.... GI following: EGD (on 02/27): unrevealing; no evidence of bleeing ulcers colonoscopy (on 02/27): internal hemrrhoids and one polyp - no active bleeding lesions follow trend of H/H (4) Osteomyelitis: Code(s): M86.9 - Osteomyelitis, unspecified Status: Acute Assessment and Plan: as noted by imaging at [facility] present in tips of right index and middle fingers noted T9 - T11 spine without epidural abscess but associated with septic facet arthritis on the left of T9-T10 s/p amputation of distal pahalnges of right index and middle fingers already on 6 week course of IV antibiotics (Vancomycin) (5) Septic arthritis of knee, right: Code(s): M00.9 - Pyogenic arthritis, unspecified Status: Acute Assessment and Plan: as noted by results of right knee aspiration at [facility] s/p I & D for right knee x 2 by Orthopedic Surgery on antibiotic therapy already (6) Left upper extremity swelling: Code(s): M79.89 - Other specified soft tissue disorders Status: Acute Assessment and Plan: quite significant on exam unclear if this was addressed during recent hospitalization at [facility] doppler ultrasound negative for DVT - this was done at [facility] (but already on anticoagulation) consider further imaging?? since this is her dialysis access arm, may need to consider fistulogram to assess for stenosis in her upper extremity veins (but this would not be able to done here...) (7) Type 1 diabetes mellitus: Code(s): E10.9 - Type 1 diabetes mellitus without complications Status: Chronic Assessment and Plan: normally on insulin pump at home follow accu-cheks glycemic control per hospitalists Will continue to follow. Subjective Date/time seen: 02/28/23 12:30 Interval history: Follow-up for end stage renal disease on hemodialysis. Tolerating hemodialysis treatment at the to[place] of my visit (seen on HD at 12:20PM); s/p EGD and colonoscopy yesterday with results noted; continue to have back pain and having difficulty eating as she is unable to sit up. Exam Narrative: General: WD/WN female in NAD Heart: normal S1 and S2; no rub Lungs: clear anteriorly Abdomen: soft, nontender, nondistended, positive bowel sounds Extremities: no cyanosis or clubbing; trace - 1+ edema; significant left arm swelling noted Skin: right hand/finger dressings in place Objective Data Vital Signs Vital Signs: Vital Signs Temp Pulse Resp BP Pulse Ox O2 Del Method 02/28/23 12:20 106 H 133/46 L 02/28/23 12:00 106 H 135/70 02/28/23 11:40 106 H 125/53 L 02/28/23 08:00 100 Room Air 02/28/23 11:20 103 H 137/51 L 02/28/23 11:00 103 H 127/56 L 02/28/23 10:40 100 144/67 H 02/28/23 10:20 94 148/73 H 02/28/23 10:00 101 H 165/70 H 02/28/23 09:40 94 148/20 H 02/28/23 09:20 96 150/70 H 02/28/23 08:50 97.8 F 97 16 161/50 H 02/28/23 09:07 94 151/83 H 02/28/23 04:45 98.1 F 63 16 159/75 H 100 02/27/23 20:55 96.6 F L 106 H 16 135/61 96 In
[2023-02-28] MEDS: LIDOCAINE 5% PATCH 1 PATCH TRANSDERM (12:59)
[2023-02-28] MEDS: CINACALCET 30 MG TABLET PO (13:00)
[2023-02-28] MEDS: SEVELAMER CARBONATE 800 MG TABLET PO ×2 (13:00→16:28)
[2023-02-28] MEDS: CALCIUM ACETATE 667 MG TABLET PO (13:00)
[2023-02-28] MEDS: PANTOPRAZOLE 40 MG TABLET PO (13:00)
[2023-02-28] MEDS: ATORVASTATIN 40 MG TABLET PO (13:00)
[2023-02-28] MEDS: MIDODRINE HCL 10 MG TABLET PO ×2 (13:00→16:28)
[2023-02-28 14:37] LABS: Glucose Point of Care 130 mg/dl (65-105)
--- NOTE | 2023-02-28 15:57 | P.PNIM_ITS ---
Progress Note: A&P Assessment and Plan (1) Back pain: Code(s): M54.9 - Dorsalgia, unspecified Status: Acute Assessment and Plan: Patient reporting right flank pain that has increasingly gotten worse. Patient was recently had hospital admission for 4 weeks at [facility] where she was found to have E faecalis bacteremia which was complicated by right knee septic arthritis she underwent a few washout of the right knee on 01/26 and again on 02/04 with cultures that were still growing E faecalis. She was placed on IV antibiotics for 6 weeks and was sent to [place] [facility] shortly after that for strength training. * [employer] PRN * Continue IV antibiotics * She has been on list to transfer to [facility] since 02/26/23 (2) Bacteremia: Code(s): R78.81 - Bacteremia Status: Acute Assessment and Plan: * Patient was diagnosed with bacteremia at [facility] and had multiple blood cultures growing E. faecalis. * She is currently on IV antibiotics for the next 6 weeks and has been followed over at [facility] for this. * Blood cultures x2 still showing no growth on preliminary * Patient will have HD today and Vancomycin IV as scheduled. * Continue with vancomycin IV as scheduled on dialysis days up until the and then transition to amoxicillin (3) Acute GI bleeding: Code(s): K92.2 - Gastrointestinal hemorrhage, unspecified Status: Acute Assessment and Plan: * Patient was noted to have low H&H requiring 2 units of blood. * Patient has been on Eliquis for a clot to her AV graft, this is been placed on hold. * She was occult positive * GI was consulted and recommended EGD and colonoscopy * Coloscopy revealed a 4mm polyp which was resected and sent for biopsy. There were a few internal hemorrhoids in the rectum, however none that were bleeding. * DVT in AVG unable to be assessed at [facility] US techs. (4) Anemia: Code(s): D64.9 - Anemia, unspecified Status: Acute Assessment and Plan: * This could be acute on chronic considering her end-stage renal disease * Guaiac-positive stool reported in the emergency room * See above plan of care (5) End-stage renal disease on hemodialysis: Code(s): N18.6 - End stage renal disease; Z99.2 - Dependence on renal dialysis Status: Acute Assessment and Plan: * Patient on hemodialysis normally on a Sunday schedule * Nephrology following (6) Gangrene: Code(s): I96 - Gangrene, not elsewhere classified Status: Acute Assessment and Plan: * Gangrenous fingers on the right hand which were amputated * Keep dressings clean dry and intact (7) Obesity, morbid, BMI 40.0-49.9: Code(s): E66.01 - Morbid (severe) obesity due to excess calories Status: Acute Assessment and Plan: BMI 43.2 kg, 128.8 kg Subjective Date/time seen: 02/28/23 15:57 Interval history: Patient continues to complain of back pain. She is in a supine position at all times and states that she cannot eat due to being unable to sit up. Try to encourage patient to attempt to sit up for short periods time so she can have some dietary intake. Discussed if patient cannot do this with the next steps would be and patient was understanding of this. She is still waiting on placement to [facility]. She continues to do IV antibiotics as well as dialysis here [facility]. Exam Na
--- NOTE | 2023-02-28 15:57 | PM.IMPN ---
Progress Note: A&P Assessment and Plan (1) Back pain: Code(s): M54.9 - Dorsalgia, unspecified Status: Acute Assessment and Plan: Patient reporting right flank pain that has increasingly gotten worse. Patient was recently had hospital admission for 4 weeks at [place] where she was found to have E faecalis bacteremia which was complicated by right knee septic arthritis she underwent a few washout of the right knee on 01/26 and again on 02/04 with cultures that were still growing E faecalis. She was placed on IV antibiotics for 6 weeks and was sent to [place] [facility] shortly after that for strength training. [employer] PRN Continue IV antibiotics She has been on list to transfer to [facility] since 02/26/23 (2) Bacteremia: Code(s): R78.81 - Bacteremia Status: Acute Assessment and Plan: Patient was diagnosed with bacteremia at [facility] and had multiple blood cultures growing E. faecalis. She is currently on IV antibiotics for the next 6 weeks and has been followed over at [facility] for this. Blood cultures x2 still showing no growth on preliminary Patient will have HD today and Vancomycin IV as scheduled. Continue with vancomycin IV as scheduled on dialysis days up until the and then transition to amoxicillin (3) Acute GI bleeding: Code(s): K92.2 - Gastrointestinal hemorrhage, unspecified Status: Acute Assessment and Plan: Patient was noted to have low H&H requiring 2 units of blood. Patient has been on Eliquis for a clot to her AV graft, this is been placed on hold. She was occult positive GI was consulted and recommended EGD and colonoscopy Coloscopy revealed a 4mm polyp which was resected and sent for biopsy. There were a few internal hemorrhoids in the rectum, however none that were bleeding. DVT in AVG unable to be assessed at [facility] US techs. (4) Anemia: Code(s): D64.9 - Anemia, unspecified Status: Acute Assessment and Plan: This could be acute on chronic considering her end-stage renal disease Guaiac-positive stool reported in the emergency room See above plan of care (5) End-stage renal disease on hemodialysis: Code(s): N18.6 - End stage renal disease; Z99.2 - Dependence on renal dialysis Status: Acute Assessment and Plan: Patient on hemodialysis normally on a Sunday schedule Nephrology following (6) Gangrene: Code(s): I96 - Gangrene, not elsewhere classified Status: Acute Assessment and Plan: Gangrenous fingers on the right hand which were amputated Keep dressings clean dry and intact (7) Obesity, morbid, BMI 40.0-49.9: Code(s): E66.01 - Morbid (severe) obesity due to excess calories Status: Acute Assessment and Plan: BMI 43.2 kg, 128.8 kg Subjective Date/time seen: 02/28/23 15:57 Interval history: Patient continues to complain of back pain. She is in a supine position at all times and states that she cannot eat due to being unable to sit up. Try to encourage patient to attempt to sit up for short periods time so she can have some dietary intake. Discussed if patient cannot do this with the next steps would be and patient was understanding of this. She is still waiting on placement to [place]. She continues to do IV antibiotics as well as dialysis here [facility]. Exam Narrative: GENERAL: Comfortable, no acute distress, obese HENMT: moist mucous membranes EYES: EOM intact b/l NECK: no lymphadenopathy RESPIRATORY: clear to auscultation CARDIO: RRR GI: soft, nontender, bowel sounds present SKIN: no rashes EXTREMITIES: +1 pitting edema bilateral lower extremities, amputation of some fingers, waffle boots on due to bilateral pressure ulcers on feet Objective Data Vital Signs Vital Signs: Vital Signs - 24 hr 02/27/23 20:55 02/28/23 04:45 02/28/23
[2023-02-28] MEDS: VANCOMYCIN 750 MG/NS 250 ML 750 MG/250 ML BAG 250 MG IVPB (16:26)
[2023-02-28 16:47] LABS: Glucose Point of Care 109 mg/dl (65-105)
--- NOTE | 2023-02-28 20:21 | PC.NURSE ---
accounts payable specialist here to transfer to [place] for higher level of care, patient had prior r knee washes out at [place] on 01/26 and 02/04 and was then transferred to [facility] where patient declined and was transferred to [place], patient continues to have E. Faecalis infection R knee. Patient transferred with current IV in place d/t transferring to higher level of care.
--- NOTE | 2023-03-02 15:03 | PM.TDS ---
Transfer Discharge Sum: Prov Provider Date of admission: 02/26/23 14:26 Primary care physician: Thomas Diez MD Admitting clinician: Trisha Pinto DO Consults: 02/25/23 06:26 Consult to Physician Routine Comment: Consulting Provider: Yfn Vyas Reason for consultation: gi bleed Has provider been notified: Yes 02/25/23 06:27 Consult to Physician Routine Comment: Consulting Provider: Chacorta Wagner Reason for consultation: ESRD on HD MWF Has provider been notified: Yes 02/26/23 Wound/ET Consult Routine Reason for Consult:: right heel DTI DS: Admitting Diagnosis Discharge Date 02/28/23 Admitting Diagnosis Back pain DS: Discharge Diagnosis Discharge Diagnosis (1) Back pain: Code(s): M54.9 - Dorsalgia, unspecified Status: Acute (2) Bacteremia: Code(s): R78.81 - Bacteremia Status: Acute (3) Acute GI bleeding: Code(s): K92.2 - Gastrointestinal hemorrhage, unspecified Status: Acute (4) Anemia: Code(s): D64.9 - Anemia, unspecified Status: Acute (5) End-stage renal disease on hemodialysis: Code(s): N18.6 - End stage renal disease; Z99.2 - Dependence on renal dialysis Status: Acute (6) Gangrene: Code(s): I96 - Gangrene, not elsewhere classified Status: Acute (7) Obesity, morbid, BMI 40.0-49.9: Code(s): E66.01 - Morbid (severe) obesity due to excess calories Status: Acute Transfer Discharge Sum: Med Medications Active and Home Medications: Home Medications apixaban 5 mg tablet (Eliquis) 5 mg PO Q12H 03/28/19 [History Confirmed 02/25/23] midodrine 5 mg tablet 10 mg PO TID 03/22/21 [History Confirmed 02/25/23] paroxetine HCl 12.5 mg tablet,extended release 24 hr 12.5 mg PO QAM 01/12/23 [History Confirmed 02/25/23] atorvastatin 40 mg tablet 40 mg PO DAILY 01/21/23 [History Confirmed 02/25/23] insulin aspart U-100 100 unit/mL subcutaneous solution (Novolog U-100 Insulin aspart) 0.5 unit continuous subcutaneous infusion DAILY 01/21/23 [History Confirmed 02/25/23] sevelamer carbonate 800 mg tablet (Renvela) 800 mg PO AC 01/21/23 [History Confirmed 02/25/23] aspirin 325 mg tablet,delayed release 325 mg PO DAILY 02/20/23 [History Confirmed 02/25/23] calcium acetate(phosphat bind) 667 mg capsule 667 mg PO DAILY 02/20/23 [History Confirmed 02/25/23] cinacalcet 30 mg tablet 30 mg PO DAILY 02/20/23 [History Confirmed 02/25/23] ergocalciferol (vitamin D2) 50,000 unit tablet 50,000 unit PO WEEKLY 02/20/23 [History Confirmed 02/25/23] omeprazole 20 mg capsule,delayed release 20 mg PO BID 02/20/23 [History Confirmed 02/25/23] oxycodone 5 mg tablet 5 mg PO Q4H PRN Pain rated 6 or greater 02/20/23 [History Confirmed 02/25/23] vancomycin 1,000 mg intravenous injection 1 g IV 3XW 02/20/23 [History Confirmed 02/25/23] Transfer Discharge Sum: Hosp Hospital Course Hospital course: Isamar Cantrell is a 52 year old female with a past medical history significant for type 1 diabetes on an insulin pump, history of RCC status post right nephrectomy and 2014, end-stage renal disease on hemodialysis Sunday, right upper extremity AV graft which is complicated by steal syndrome with chronic pain who presented to the hospital with right flank pain with associated nausea.? Patient was discharged from [facility] 5 days prior to presentation after a 4 week hospitalization for septic arthritis of the spine and right knee as well as bacteremia and she and on IV vancomycin for this. She was discharged to [facility] after her hospital stay at [facility]. Workup in the hospital revealed low hemoglobin and heme-positive stools. She was transfused with 2 units of blood and GI was consulted. Patient received an EGD and colonoscopy while in the hospital. EGD did not show any acute abnormalities. Colonoscopy revealed a 4 mm polyp which was resected and sent for biopsy as well few internal hemorrhoids
[2023-03-03 12:48] LABS: Hepatitis B Core Ab Total Nonreactive (Nonreactive)
== END 2023-02-28 20:26 | disposition short-term general hospital (02) | DRG 539 ==
LOC: ANHED 02-25 07:24 → ANH3MEDSUR 02-25 09:05
PROVIDERS: Emergency Medicine; Internal Medicine Gastroenterology; Internal Medicine Nephrology; Nurse Practitioner Acute Care; Admitting Provider Internal Medicine; Emergency Provider Emergency Medicine; PCP Family Medicine; Visit Provider Internal Medicine
PROC: 0DJ08ZZ Inspection of Upper Intestinal Tract, Via Natural or Artificial Opening Endoscopic (ICD-10-PCS; CPT 43235; principal; 2023-02-27 13:30)
DX: M46.24 Osteomyelitis of vertebra, thoracic region (principal); N18.6 End stage renal disease; N25.81 Secondary hyperparathyroidism of renal origin; M00.861 Arthritis due to other bacteria, right knee; T82.898A Other specified complication of vascular prosthetic devices, implants and grafts, initial encounter; F33.9 Major depressive disorder, recurrent, unspecified; R78.81 Bacteremia; I12.0 Hypertensive chronic kidney disease with stage 5 chronic kidney disease or end stage renal disease; E10.3293 Type 1 diabetes mellitus with mild nonproliferative diabetic retinopathy without macular edema, bilateral; E10.22 Type 1 diabetes mellitus with diabetic chronic kidney disease; E10.42 Type 1 diabetes mellitus with diabetic polyneuropathy; E10.51 Type 1 diabetes mellitus with diabetic peripheral angiopathy without gangrene; E87.6 Hypokalemia; E55.9 Vitamin D deficiency, unspecified; E78.5 Hyperlipidemia, unspecified; E66.01 Morbid (severe) obesity due to excess calories; D64.9 Anemia, unspecified; R19.5 Other fecal abnormalities; K21.9 Gastro-esophageal reflux disease without esophagitis; M25.561 Pain in right knee; F41.9 Anxiety disorder, unspecified; Z96.41 Presence of insulin pump (external) (internal); Z85.528 Personal history of other malignant neoplasm of kidney; Z90.5 Acquired absence of kidney; Z99.2 Dependence on renal dialysis; Z79.01 Long term (current) use of anticoagulants; Z74.01 Bed confinement status; Z79.4 Long term (current) use of insulin; Z89.021 Acquired absence of right finger(s)
CPT/HCPCS: 36415; 36430; 71045; 74176; 80053; 80202; 82565; 82728; 82948; 83540; 83550; 83605; 83690; 85014; 85018; 85025; 85610; 85730; 86140; 86704; 86706; 86850; 86900; 86901; 86920; 87040; 87340; 93005; 96361; 96374; 96375; 96376; 99285; P9038; A9270; C9113; G0257; G0378; J1170; J1644; J2060; J2405; J2704; J3370; J7030; J7040; J7050; J7120; Q5105